=== PATIENT | male | born 1960 | race Caucasian/White ===

== ENCOUNTER 2023-07-30 08:07 | Outpatient (OUT) | payer OTHER, SELFPAY ==
[2023-07-30 08:24] LABS: Basophils Percent Auto 0.6 % (0.2-2.0); Eosinophils Absolute Auto 0.1 10^3/uL (0.0-0.7); Eosinophils Percent Auto 1.5 % (0.9-7.0); Hematocrit 47.1 % (42.0-54.0); Hemoglobin 16.1 g/dL (14.0-18.0); Immature Granulocytes Abs Auto 0.02 10^3/uL (0.00-0.03); Immature Granulocytes Pct Auto 0.3 % (0.0-0.5); Lymphocytes Percent Auto 29.8 % (20.5-60.0); Mean Corpuscular HGB Conc 34.2 g/dL (29.9-35.2); Mean Corpuscular Hemoglobin 30.6 pg (25.9-34.0); Mean Corpuscular Volume 89.5 fL (80.0-94.0); Mean Platelet Volume 9.7 fL (9.5-13.5); Monocytes Absolute Auto 0.7 10^3/uL (0.3-0.8); Monocytes Percent Auto 10.9 % (1.7-12.0); Neutrophils Absolute Auto 3.8 10^3/uL (1.4-6.5); Neutrophils Percent Auto 56.9 % (43.0-75.0); Platelet Count 219 10^3/uL (150-450); Red Blood Count 5.26 10^6/uL (4.70-6.10); Red Cell Distribution Width 12.4 % (11.0-15.0); White Blood Count 6.6 10^3/uL (4.0-11.0)
[2023-07-30 10:02] LABS: Estimated Average Glucose 105 mg/dL; Glycohemoglobin A1C 5.3 % (4.5-6.2)
[2023-07-30 10:38] LABS: Alanine Aminotransferase 27 U/L (16-63); Albumin Globulin Ratio 0.9; Albumin Level 3.6 g/dL (3.4-5.0); Alkaline Phosphatase 65 U/L (46-116); Anion Gap 12.2; Aspartate Amino Transferase 13 U/L (15-37); BUN Creatinine Ratio 14.2; Bilirubin Total 0.6 mg/dL (0.2-1.0); Calcium 8.6 mg/dL (8.5-10.1); Carbon Dioxide 28.2 mmol/L (21.0-32.0); Chloride 103 mmol/L (98-107); Chol HDL Ratio 4.8; Cholesterol 184 mg/dL (<=200); Estimated GFR (African America >60 (>=60); Estimated GFR (Non-African Ame 58 (>=60); Globulin 3.9 g/dL; Glucose 90 mg/dL (74-106); HDL Cholesterol 38 mg/dL (40-60); Potassium 4.4 mmol/L (3.5-5.1); Sodium 139 mmol/L (136-145); Thyroid Stimulating Hormone 2.413 uIU/mL (0.358-3.740); Total Protein 7.5 g/dL (6.4-8.2); Triglycerides 98 mg/dL (<=150); VLDL CHOLESTEROL 19.6 mg/dL
[2023-07-30 10:59] LABS: Free T4 1.13 ng/dL (0.76-1.46)
[2023-07-30 11:03] LABS: Prostate Specific Antigen Scrn 1.72 ng/mL (<=4.00)
== END 2023-07-30 08:08 | disposition home or self-care (01) ==
LOC: LAB 08:07
PROVIDERS: PCP Family Medicine; Visit Provider Family Medicine
DX: R53.83 Other fatigue (principal); E78.5 Hyperlipidemia, unspecified; R73.09 Other abnormal glucose; Z79.899 Other long term (current) drug therapy; Z12.5 Encounter for screening for malignant neoplasm of prostate
CPT/HCPCS: 36415; 80053; 80061; 83036; 84439; 84443; 85025; G0103

== ENCOUNTER 2024-08-09 08:57 | Outpatient (OUT) | payer OTHER, SELFPAY ==
[2024-08-09 09:10] LABS: Basophils Absolute Auto 0.1 10^3/uL (0.0-0.1); Basophils Percent Auto 0.7 % (0.2-2.0); Eosinophils Absolute Auto 0.1 10^3/uL (0.0-0.7); Eosinophils Percent Auto 1.3 % (0.9-7.0); Hematocrit 48.1 % (42.0-54.0); Hemoglobin 16.5 g/dL (14.0-18.0); Immature Granulocytes Abs Auto 0.02 10^3/uL (0.00-0.03); Immature Granulocytes Pct Auto 0.3 % (0.0-0.5); Lymphocytes Absolute Auto 2.3 10^3/uL (1.2-3.8); Mean Corpuscular HGB Conc 34.3 g/dL (29.9-35.2); Mean Corpuscular Hemoglobin 30.3 pg (25.9-34.0); Mean Corpuscular Volume 88.4 fL (80.0-94.0); Mean Platelet Volume 9.8 fL (9.5-13.5); Monocytes Absolute Auto 0.7 10^3/uL (0.3-0.8); Monocytes Percent Auto 8.9 % (1.7-12.0); Neutrophils Absolute Auto 4.3 10^3/uL (1.4-6.5); Neutrophils Percent Auto 57.8 % (43.0-75.0); Platelet Count 221 10^3/uL (150-450); Red Blood Count 5.44 10^6/uL (4.70-6.10); Red Cell Distribution Width 12.5 % (11.0-15.0); White Blood Count 7.4 10^3/uL (4.0-11.0)
[2024-08-09 10:02] LABS: Alanine Aminotransferase 19 U/L (16-63); Albumin Globulin Ratio 0.9; Albumin Level 3.6 g/dL (3.4-5.0); Alkaline Phosphatase 82 U/L (46-116); Anion Gap 14.3; Aspartate Amino Transferase 12 U/L (15-37); BUN Creatinine Ratio 14.4; Bilirubin Total 0.8 mg/dL (0.2-1.0); Calcium 8.9 mg/dL (8.5-10.1); Carbon Dioxide 25.1 mmol/L (21.0-32.0); Chloride 106 mmol/L (98-107); Chol HDL Ratio 4.2; Cholesterol 191 mg/dL (<=200); Estimated GFR (African America >60 (>=60 mL/min/1.73m^2); Estimated GFR (Non-African Ame 55 (>=60 mL/min/1.73m^2); Free T3 3.04 pg/mL (2.18-3.98); Globulin 3.9 g/dL; Glucose 91 mg/dL (74-106); HDL Cholesterol 45 mg/dL (40-60); Potassium 4.4 mmol/L (3.5-5.1); Sodium 141 mmol/L (136-145); Thyroid Stimulating Hormone 2.773 uIU/mL (0.358-3.740); Total Protein 7.5 g/dL (6.4-8.2); Triglycerides 75 mg/dL (<=150)
[2024-08-09 10:05] LABS: Prostate Specific Antigen Scrn 2.62 ng/mL (<=4.00)
[2024-08-09 11:03] LABS: Estimated Average Glucose 103 mg/dL; Glycohemoglobin A1C 5.2 % (4.5-6.2)
== END 2024-08-09 08:58 | disposition home or self-care (01) ==
LOC: LAB 08:57
PROVIDERS: PCP Family Medicine; Visit Provider Family Medicine
DX: I10 Essential (primary) hypertension (principal); E78.5 Hyperlipidemia, unspecified; Z79.899 Other long term (current) drug therapy; Z12.5 Encounter for screening for malignant neoplasm of prostate; R73.09 Other abnormal glucose; N40.0 Benign prostatic hyperplasia without lower urinary tract symptoms
CPT/HCPCS: 36415; 80053; 80061; 83036; 84436; 84443; 84481; 85025; G0103

== ENCOUNTER 2024-08-19 08:55 | Outpatient (OUT) | payer OTHER, SELFPAY ==
--- OUTSIDE RECORDS SUMMARY | 2024-08-19 08:57 | XMS_ITS | CCD ---
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 Name Role Phone JOSUÉ BEASLEY Attending Unavailable NO FAMILY DOCTOR, NO FAMILY DOCTOR Primary Care Unavailable JOSUÉ BEASLEY Attending Unavailable NO FAMILY DOCTOR, NO FAMILY DOCTOR Primary Care Unavailable Saturnino Hart Primary Care Physician BIANCA, DR HUITRON Admitting Unavailable BIANCA, DR HUITRON Attending Unavailable DR SATURNINO HART Primary Care Unavailable BIANCA, DR HUITRON Consulting Unavailable Saturnino Hart MD Primary Care Provider Blair Ba DO Unavailable [phone] BLAIR BA Attending Unavailable BLAIR BA Attending Unavailable SATURNINO HART Referring Unavailable POCJERRI, YAYO Whitley Attending Unavailable POCJERRI, YAYO Whitley Referring Unavailable BLAIR BA Attending Unavailable SATURNINO HART Referring Unavailable BLAIR BA Attending Unavailable DO Blair Ba Attending Provider [phone] Greg MYRICK Admitting Unavailable Greg MYRICK Attending Unavailable Greg MYRICK Referring Unavailable IZZYTENA SWIFT Admitting Unavailable IZZYTENA SWIFT Attending Unavailable Greg MYRICK Attending Unavailable COOKGreg Attending Unavailable Stuart RUIZ Attending Unavailable COOKGreg Attending Unavailable Greg MYRICK Referring Unavailable IZZYTENA SWIFT Attending Unavailable Greg MYRICK Referring Unavailable COOKGreg Admitting Unavailable Greg MYRICK Attending Unavailable Blair Ba Attending Unavailable Blair Ba Admitting Unavailable ROMAN MAGANA Attending Unavailab le IZZY, ROMAN Balbuena Admitting Unavailab le Allergies Allergy Classification Reported Allergen(s) Allergy Type Date of Onset Reaction(s) Facility (20 sources) Acetaminophen / HYDROcodone; Translations: [acetaminophen-hy drocodone] Drug Allergy 6 Insomnia (disorder) [facility] (11 sources) Clindamycin; Translations: [clindamycin] Drug Allergy Weal (disorder) [facility] (20 sources) Penicillins; Translations: [penicillins] Drug allergy [address] [facility] (20 sources) zolpidem; Translations: [zolpidem] Drug Allergy 6 Weal (disorder), Hives, Unknown [facility] (2 sources) Acetaminophen / HYDROcodone; Translations: [Vicodin] Drug Allergy 6 [facility] [place] [facility] (2 sources) zolpidem; Translations: [Ambien] Drug Allergy 6 [facility] (11 sources) HYDROcodone Drug Allergy [address] [facility] (5 sources) Acetaminophen; Translations: [acetaminophen] Drug Allergy 9 Anxiety [facility] (1 source) HYDROcodone Drug Allergy 9 [facility] Repository Medications Current Medications Medication Drug Class(es) Dates Sig (Normalized) Sig (Original) acetaminophen 325 mg / HYDROcodone bitartrate 5 mg oral tablet (3 sources) Opioid Agonist Start: 09-23-2023 take 1 tablet by mouth every hour [place] 325 mg-5 mg oral tablet See Instructions, 1 tab(s), Refill(s) 0, Take 1 hour prior to your procedure, [facility] #[id number], 182, cm, 09/23/23 8:28:00 EST, Height/Length Dosing, 127, kg, 08/10/23 8:48:00 EST, Weight Dosing Start Date: 09/23/23 Status: Ordered acetaminophen 325 mg / traMADol hydrochloride 37.5 mg oral tablet (3 sources) Opioid Agonist Start: 09-23-2023 Ultracet 325 mg-37.5 mg Tab See Instructions, 20 tab(s), Refill(s) 0, take 1-2 every 6 hrs prn for pain - following procedure, [facility] #[id number], 182, cm, 09/23/23 8:28:00 EST, Height/Length Dosing, 127, kg, 08/10/23 8:48:00 EST, Weight Dosing Start Date: 09/23/23 Status: Ordered ALPRAZolam 0.5 mg oral tablet (1 source) Benzodiazepine Start: 10-17-2018 take 1 tablet by mouth twice daily Alprazolam (Xanax) 0.5 mg Tablet Active 0.5 MG PO Twice daily October 17, 2018 12:00am amLODIPine 5 mg oral tablet (20 sources) Dihydropyridine Calcium Channel Issa Start: 10-07-2011 take 1 tablet by mouth once daily amLODIPine 5 mg Tab 5 mg = 1 tab(s), Oral, Daily, High blood pressure Start Date: 10/07/11 Status: Ordered amLODIPine (Norv asc) 10 MG tablet Take by mouth Daily. Active ARIPiprazole 5 mg oral tablet (10 sources) Atypical Antipsychotic Start: 05-22-2023 ARIPiprazole (Abilify) 5 MG tablet 05/22/2023 Active brexpiprazole 1 mg oral tablet (2 sources) Atypical Antipsychotic Start: 03-31-2019 take 1 tablet by mouth once daily Rexulti 1 mg oral tablet mg tab(s), Oral, Daily, Refills(s) 0 Start Date: 03/31/19 Status: Ordered celecoxib 100 mg oral capsule (4 sources) Nonsteroidal Anti-inflammatory Drug Start: 10-17-2018 End: 10-17-2018 take 1 capsule by mouth once daily at mealtime Celecoxib (Celebrex) 100 mg Capsule Active 100 MG PO Daily 0 October 17, 2018 12:27pm take with food Start: 02-12-2012 take 1 capsule by [facility] once daily CeleBREX 200 mg Cap 200 mg = 1 cap(s), Oral, Daily, Refills(s) 0, Inflammation Start Date: 02/12/12 Status: Ordered ciprofloxacin 500 mg oral tablet (2 sources) Quinolone Antimicrobial Start: 09-23-2023 End: 09-30-2023 Cipro 500 mg Tab 500 mg = 1 tab(s), Oral, q12hr, Start 3 days prior to procedure - twice a day for 7 days, X 7 day(s), # 14 tab(s), Refills(s) 0, [id number], 182, cm, 09/23/23 8:28:00 EST, Height/Length Dosing, 127, kg, 08/10/23 8:48:00 EST, Weight Dosing Start Date: 09/23/23 Stop Date: 09/30/23 Status: Ordered Start: 08-10-2023 Cipro 500 mg T ab 500 mg = 1 tab(s), Oral, As Directed, Pt to take 1 tab the day before procedure and the 2nd tab the day of procedure once completed., # 2 tab(s), Refills(s) 0, [facility]acy: [facility] #[id number], 182, cm, 08/10/23 8:48:00 EST, Height/Length Dosing, 127, kg, 08/10/23 8:48:00 EST, Weight Dosing Start Date: 08/10/23 Status: Ordered citalopram 20 mg oral tablet (20 sources) Serotonin Reuptake Inhibitor Start: 05-28-2020 citalopram (CeleXA) 20 MG tablet 06/19/2024 Active Start: 10-17-2018 End: 08-16-2024 take 1 tablet by mouth once daily Citalopram (Celexa) 40 mg Tablet Active 40 MG PO Daily October 17, 2018 12:00am diazePAM 10 mg oral tablet (3 sources) Benzodiazepine Start: 09-23-2023 Valium 10 mg Tab See Instructions, Take 1 hr prior to procedure, # 1 tab(s), Refills(s) 0, Pharmacy: [facility] #[id number], 182, cm, 09/23/23 8:28:00 EST, Height/Length Dosing, 127, kg, 08/10/23 8:48:00 EST, Weight Dosing Start Date: 09/23/23 Status: Ordered fluticasone propionate 0.05 mg/actuat metered dose nasal spray (2 sources) Corticosteroid Start: 03-31-2019 Childrens Flonase 50 mcg/inh nasal spray 50 microgram, Nasal, Daily, Refill(s) 0 Start Date: 03/31/19 Status: Ordered hyoscyamine sulfate 0.125 mg oral tablet (2 sources) Start: 03-31-2019 take 1 mg by mouth four times daily hyoscyamine 0.125 mg oral Tab mg tab(s), Oral, QID, Refills(s) 0 Start Date: 03/31/19 Status: Ordered levoFLOXacin 500 mg oral tablet (6 sources) Quinolone Antimicrobial Start: 07-20-2024 End: 08-03-2024 take 1 tablet by mouth once daily levoFLOXacin (Levaquin) 500 MG tablet Indications: Otorrhea, unspecified laterality Take 1 tablet (500 mg) by mouth Daily for 14 days 14 tablet 07/20/2024 08/03/2024 Active lisinopril 20 mg oral tablet (20 sources) Angiotensin Converting Enzyme Inhibitor Start: 04-26-2012 take 1 tablet by mouth once daily lisinopril 20 mg Tab 20 mg = 1 tab(s), Oral, Daily, High blood pressure Start Date: 04/26/12 Status: Ordered lisinopril 10 MG tablet Take by mouth Daily. Active meloxicam 15 mg oral tablet (10 sources) Nonsteroidal Anti-inflammatory Drug Start: 07-02-2024 take 1 tablet by mouth once daily at mealtime meloxicam (Mobic) 15 MG tablet TAKE 1 TABLET BY MOUTH EVERY DAY WITH FOOD 07/02/2024 Active ofloxacin 3 mg/ml otic solution (5 sources) Quinolone Antimicrobial Start: 07-11-2024 End: 07-30-2024 ofloxacin (Floxin) 0.3 % otic solution Indications: Otorrhea, unspecified laterality Administer 5 drops into affected ear(s) in the morning and 5 drops before bedtime. Do all this for 10 days. 5 mL 1 07/20/2024 07/30/2024 Active omeprazole 40 mg delayed release oral capsule (20 sources) Proton Pump Inhibitor Start: 10-17-2018 take 40 mg by mouth twice daily Omeprazole Active 40 MG PO Twice daily 0 October 17, 2018 12:27pm Start: 10-17-2018 End: 10-17-2018 take 80 mg by mouth once daily Omeprazole Discontinued 80 MG PO Daily October 17, 2018 12:00am October 17, 2018 12:28pm Start: 10-07-2011 omeprazole 40 mg Cap-EC Oral, Daily, Control of stomach acid Start Date: 10/07/11 Status: Ordered take 1 capsule by mo uth before mealtime omeprazole (PriLOSEC) [address] capsule Take 20 mg by mouth in the morning. Take before meals. Do not crush or chew. . Active oxybutynin chloride 5 mg oral tablet (3 sources) Cholinergic Muscarinic Antagonist Start: 09-23-2023 take 1 tablet by mouth twice daily oxybutynin 5 mg Tab See Instructions, 1 tab(s) Oral bid after procedure, # 10 tab(s), Refills(s) 0, Pharmacy: [facility] #[id number], 182, cm, 09/23/23 8:28:00 EST, Height/Length Dosing, 127, kg, 08/10/23 8:48:00 EST, Weight Dosing Start Date: 09/23/23 Status: Ordered silodosin 4 mg oral capsule (8 sources) alpha-Adrenergic Issa Start: 11-29-2023 take 1 capsule by mouth once daily Rapaflo 4 mg oral capsule 4 mg = 1 cap(s), Oral, Daily, # 90 cap(s), Refills(s) 3, Pharmacy: [facility], 182, cm, 11/29/23 9:14:00 EST, Height/Length Dosing, 127, kg, 11/29/23 9:14:00 EST, Weight Dosing Start Date: 11/29/23 Status: Ordered Start: 09-23-2023 take 1 capsule by [facility] once daily Rapaflo 4 mg oral capsule 4 mg = 1 cap(s), Oral, Daily, # 90 cap(s), Refills(s) 3, Pharmacy: [facility] #[id number], 182, cm, 09/23/23 8:28:00 EST, Height/Length Dosing, 127, kg, 08/10/23 8:48:00 EST, Weight Dosing Start Date: 09/23/23 Status: Ordered Start: 08-06-2022 take 1 capsule by [facility] once daily Rapaflo 4 mg oral capsule 4 mg = 1 cap(s), Oral, Daily, # 90 cap(s), Refills(s) 3, Pharmacy: [facility], 182, cm, 08/06/22 11:04:00 EST, Height/Length Dosing, 121, kg, 08/06/22 11:04:00 EST, Weight Dosing Start Date: 08/06/22 Status: Ordered traMADol hydrochloride 50 mg oral tablet (20 sources) Opioid Agonist Start: 10-17-2018 take 50 mg by mouth four times daily Tramadol Active 50 MG PO Four times daily October 17, 2018 12:00am Start: 10-21-2012 take 50 mg by mouth twice daily as needed for pain tramadol 50 mg, Oral, BID, PRN as needed for pain, Refills(s) 0 Start Date: 10/21/12 Status: Ordered Completed/Discontinued Medications Medication Drug Class(es) Dates Sig (Normalized) Sig (Original) finasteride 5 mg oral tablet (2 sources) 5-alpha Reductase Inhibitor End: 07-19-2024 finasteride (Proscar) 5 MG tablet 1 (one) time each day at the same time. 07/19/2024 Discontinued (Therapy completed) Problems Active Problems Problem Classification Problem Date Documented Da te Episodic/Chronic Diabetes mellitus without complication (1 source) Other abnormal glucose; Translations: [OTHER ABNORMAL GLUCOSE] Onset: 08-08-2022 Episodic Disorders of lipid metabolism (1 source) Hyperlipidemia, unspecified; Translations: [HYPERLIPIDEMIA UNSPECIFIED] Onset: 08-08-2022 Chronic Esophageal disorders (1 source) Esophageal disorders Onset: 10-31-2018 Malaise and fatigue (1 source) Other fatigue; Translations: [OTHER FATIGUE] Onset: 08-08-2022 Episodic Other diseases of kidney and ureters (2 sources) Urinary tract obstruction; Translations: [Other obstructive and reflux uropathy] Onset: 09-23-2023 Episodic Other ear and sense organ disorders (2 sources) Otorrhea; Translations: [Otorrhea, unspecified ear] 07-20-2024 Episodic Other ear and sense organ disorders (4 sources) Otorrhea of left ear; Translations: [Otorrhea, left ear] 07-31-2024 Episodic Other ear and sense organ disorders (1 source) Otorrhea, left ear; Translations: [Otorrhea, left ear] Onset: 07-31-2024 Episodic Other injuries and conditions due to external causes (2 sources) Foreign body in left ear; Translations: [Foreign body in left ear, initial encounter] 07-20-2024 Episodic Other male genital disorders (4 sources) Male erectile dysfunction, unspecified; Translations: [Erectile dysfunction] Onset: 08-06-2022 Chronic Other male genital disorders (10 sources) Impotence 05-28-2020 Chronic Other nervous system disorders (10 sources) Complex regional pain syndrome, type I 10-07-2011 Chronic Other upper respiratory disease (10 sources) Chronic rhinitis; Translations: [Chronic rhinitis] Onset: 05-12-2023 Resolved: 05-12-2023 05-12-2023 Chronic Otitis media and related conditions (10 sources) Chronic serous otitis media; Translations: [Chronic serous otitis media, unspecified ear] Onset: 05-12-2023 Resolved: 05-12-2023 05-12-2023 Chronic Otitis media and related conditions (6 sources) Acute suppurative otitis media of left ear; Translations: [Acute suppurative otitis media without spontaneous rupture of ear drum, left ear] 07-20-2024 Episodic Unclassified (10 sources) Asymptomatic microscopic hematuria 08-06-2022 Past or Other Problems Problem Classification Problem Date Documented Date Episodic/Chronic Anxiety disorders (20 sources) Posttraumatic stress disorder; Translations: [Post-traumatic stress disorder, unspecified] Onset: 05-12-2023 Resolved: 08-16-2024 10-07-2011 Chronic Esophageal disorders (20 sources) Gastroesophageal reflux disease; Translations: [Gastro-esophageal reflux disease without esophagitis] Onset: 05-12-2023 Resolved: 05-12-2023 12-08-2013 Chronic Essential hypertension (20 sources) Essential (primary) hypertension; Translations: [Hypertensive disorder] Onset: 01-10-2013 Resolved: 05-12-2023 10-07-2011 Chronic Genitourinary symptoms and ill-defined conditions (20 sources) Post-micturition incontinence ; Translations: [Post-void dribbling] Onset: 05-12-2023 Resolved: 05-12-2023 03-31-2019 Chronic Genitourinary symptoms and ill-defined conditions (20 sources) Microscopic hematuria; Translations: [Asymptomatic microscopic hematuria] Onset: 08-06-2022 Resolved: 05-12-2023 Episodic Hyperplasia of prostate (20 sources) Benign prostatic hypertrophy with outflow obstruction; Translations: [Benign prostatic hyperplasia with lower urinary tract symptoms] Onset: 01-10-2013 Resolved: 05-12-2023 Chronic Inflammatory conditions of male genital organs (20 sources) Epididymitis; Translations: [Epididymitis] Onset: 05-12-2023 Resolved: 05-12-2023 03-31-2019 Episodic Mood disorders (4 sources) Depressive disorder; Translations: [Depression] Onset: 08-16-2024 Resolved: 08-16-2024 10-17-2018 Chronic Nonspecific chest pain (7 sources) Chest pain, unspecified; Translations: [Chest pain] Onset: 10-31-2018 Resolved: 08-16-2024 10-17-2018 Episodic Other congenital anomalies (10 sources) Congenital malposition of metatarsal bone; Translations: [Other congenital valgus deformities of feet] Onset: 05-12-2023 Resolved: 05-12-2023 05-12-2023 Chronic Other connective tissue disease (10 sources) Artificial knee joint present; Translations: [Presence of artificial knee joint, bilateral] Onset: 05-12-2023 Resolved: 05-12-2023 05-12-2023 Chronic Other ear and sense organ disorders (14 sources) Left conductive hearing loss; Translations: [Conductive hearing loss, unilateral, left ear, with unrestricted hearing on the contralateral side] Onset: 05-12-2023 Resolved: 05-12-2023 05-12-2023 Chronic Other ear and sense organ disorders (10 sources) Hearing loss of left ear; Translations: [Unspecified hearing loss, left ear] Onset: 05-12-2023 Resolved: 05-12-2023 05-12-2023 Chronic Other ear and sense organ disorders (10 sources) Sensorineural hearing loss, bilateral; Translations: [Sensorineural hearing loss, bilateral] Onset: 05-12-2023 Resolved: 05-12-2023 05-12-2023 Chronic Other male genital disorders (20 sources) Cyst of epididymis; Translations: [Cyst of epididymis] Onset: 08-06-2022 Resolved: 05-12-2023 Episodic Other male genital disorders (20 sources) Testicular mass; Translations: [Other specified disorders of the male genital organs] Onset: 05-12-2023 Resolved: 05-12-2023 03-31-2019 Episodic Other screening for suspected conditions (not mental disorders or infectious disease) (16 sources) Encounter for screening for malignant neoplasm of prostate; Translations: [Screening for malignant neoplasm done] Onset: 08-10-2023 Resolved: 11-10-2023 Episodic Residual codes; unclassified (20 sources) Insomnia; Translations: [Insomnia, unspecified] Onset: 05-12-2023 Resolved: 05-12-2023 12-08-2013 Episodic Substance-related disorders (20 sources) Smoker; Translations: [Nicotine dependence, unspecified, uncomplicated] Onset: 05-12-2023 Resolved: 05-12-2023 03-31-2019 Chronic Unclassified (8 sources) Patient encounter status 08-10-2023 Results Test Name Value Interpretation Reference Range Facility URINALYSISOrdered By: SYSTEM SYSTEM on 08-15-2024 Bilirubin Ql (U) Negative Normal Negativemg/ d L [facility] UA Auto SS Clarity (U) Clear (08/15/24 12:08 PM) Normal Clear [facility] UA Auto SS Color (U) Yellow 1 (08/15/24 12:08 PM) Normal Yellow [facility] UA Auto SS Comment on above: Interpretive Data: M icroscopic readings are only performed on those samples that meet specific criteria set forth by [facility]. Glucose Ql (U) Negative Normal Negativemg/d L [facility] UA Auto SS Hemoglobin Auto test strip (U) [Mass/Vol] 1+ mg/dL Invalid Interpretation Code Negativemg/d L [facility] UA Auto SS Ketones Auto test strip Ql (U) Negative Normal Negativemg/d L [facility] UA Auto SS Leukocyte esterase Auto test strip Ql (U) Negative Normal NegativeLeu/ uL [facility] UA Auto SS Mucus Auto Ql (U) Negative Normal Negativegr ad ed/LPF [facility] UA Auto SS Nitrite Auto test strip Ql (U) Negative Normal Negativemg/d L [facility] UA Auto SS pH (U) 5.5 *NA* (08/15/24 12:08 PM) Invalid Interpretation Code 5.0 - 9.0 [facility] UA Auto SS Protein Ql (U) Negative Normal Negativemg/d L [facility] UA Auto SS RBC Ql (U) 0-3 graded/HPF Normal 0-3graded/HP F [facility] UA Auto SS Specific gravity (U) [Rel density] 1.024 *NA* (08/15/24 12:08 PM) Invalid Interpretation Code 1.005 - 1.030 [facility] UA Auto SS Urobilinogen (U) [Mass/Vol] Negative Normal Negativemg/d L [facility] UA Auto SS WBC Auto (Urine sed) [#/Area] 0-5 graded/HPF Normal 0-5graded/HP F [facility] UA Auto SS URINALYSISOrdered By: Kusum Yeung on 08-15-2024 UA Spec Desc Random Urine (08/15/24 12:08 PM) Normal [facility] UA Auto SS Urinalysis with Microon 07-28 Bilirubin Ql (U) Negative Normal Negative [facility] Comment on above: Performed By: #### 4 [id number] #### [facility] [address] [place] [address] Clarity (U) Clear Normal Clear [facility] Comment on above: Performed By: #### 4 [id number] #### [facility] [address] [place] [address] Color (U) Yellow Normal Yellow [facility] Comment on above: Result Comment: Micr oscopic readings are only performed on those samples that meet specific criteria set forth by [facility]. Performed By: #### 4 [id number] #### [facility] [address] [place] [address] Glucose Ql (U) Negative Normal Negative [facility] Comment on above: Performed By: #### 4 [id number] #### [facility] [address] [place] [address] Hemoglobin Auto test strip (U) [Mass/Vol] 1+ mg/dL Abnormal Negative [facility] Comment on above: Performed By: #### 4 [id number] #### [facility] [address] [place] [address] Ketones Auto test strip Ql (U) Negative Normal Negative [facility] Comment on above: Performed By: #### 4 [id number] #### [facility] [address] [place] [address] Leukocyte esterase Auto test strip Ql (U) Negative Normal Negative [facility] Comment on above: Performed By: #### 4 [id number] #### [facility] [address] [place] [address] Mucus Auto Ql (U) Negative Normal Negative [facility] Comment on above: Performed By: #### 4 [id number] #### [facility] [address] [place] [address] Nitrite Auto test strip Ql (U) Negative Normal Negative [facility] Comment on above: Performed By: #### 4 [id number] #### [facility] [address] [place] [address] pH (U) 5.5 [pH] Invalid Interpretation Code 5.0-9.0 [facility] Comment on above: Performed By: #### 4 [id number] #### [facility] [address] [place] [address] Protein Ql (U) Negative Normal Negative [facility] Comment on above: Performed By: #### 4 [id number] #### [facility] [address] [place] [address] RBC Ql (U) 0-3 Normal 0-3 [facility] Comment on above: Performed By: #### 4 [id number] #### [facility] [address] [place] [address] Specific gravity (U) [Rel density] 1.024 Invalid Interpretation Code 1.005-1.030 [facility] Comment on above: Performed By: #### 4 [id number] #### [facility] [address] [place] [address] Urobilinogen (U) [Mass/Vol] Negative Normal Negative [facility] Comment on above: Performed By: #### 4 [id number] #### [facility] [address] [place] [address] WBC Auto (Urine sed) [#/Area] 0-5 Normal 0-5 [facility] Comment on above: Performed By: #### 4 [id number] #### [facility] [address] [place] [address] Type of Urine collection method Random Urine Normal [facility] Comment on above: Performed By: #### 4 [id number] #### [facility] [address] [place] [id number] Urology Office/Clinic Noteon 08-15-2024 Urology Office/Clinic Note Urology Office/Clinic Note Chief Complaint 5mo f/u PSA HPI Staff 63 year old male here fore 5 month f/u with PSA Previous DX: BPH w/LUTS, screening PSA and asymptomatic micro hematuria S/p Urolift 6 implants 11/01/23 PSA: 08/01/21 - 1.89 08/03/22 - 2.10 & 24.8% 07/30/23 - 1.72 08/09/24 - 2.62 A1c 5.2 done 08/09/24 Dysuria: denies Incomplete bladder emptying: denies Hematuria: denies Frequency: every 3-4hrs Urgency: only once in awhile if he hold urine too long Nocturia: 1x Stream: good stream Leaking: denies Post void dripping: denies Wearing pads/ Depends: denies Urge incontinence: denies Stress incontinence: denies Incontinence without Sensory Awareness: denies Abdominal pain: denies Flank pain: denies Sexual complaints: denies Review of Systems PHQ Score Initial Depression Screen Score: 0 SCORE Physical Exam Vitals & Measurements T: 37 ???C(Oral) HR: 73(Peripheral) RR: 18 BP: 160/100 HT: 72 in HT: 182 cm WT: 128 kg WT: 282.191 lb BMI: 38.64 TOSHIA: benign. no asymmetry, induration, nodules. Assessment/Plan 1. Abnormal PSA, (R97.20: Elevated prostate specific antigen [PSA])Abnormal PSA PSA: 08/01/21 - 1.89 08/03/22 - 2.10 & 24.8% 07/30/23 - 1.72 08/09/24 - 2.62 Explained that although PSA is still <4, for his age I'd like it closer to 2.5 and I don't particularly like the jump. Was holding steady 1.7-2.1, now 2.6 Instead of waiting a full year, we will repeat in 6 mos. If that remains stable or drops back down, then we can go back to annual screening. If increases, will need ov to discuss MRI/[facility]. Call pt w results. Recall placed. Ordered: PSA Total 2. BPH without urinary obstruction (N40.0: Benign prostatic hyperplasia without lower urinary tract symptoms) Sp Urolift 6 implants 11/01/23 w [facility]. Pt reports it was the most painful and awful experience and that he felt every clip. Wants anesthesia w any future procedures. IPSS 4 QOL 0. Weaned off Rapaflo after last ov. Doing well. No complaints. 3. Asymptomatic microscopic hematuria (R31.21: Asymptomatic microscopic hematuria) today's in-office UA shows moderate hgb. we will send for microscopic eval and culture. if shows significant microhematuria and completely negative cx, then we will need to proceed with hematuria eval. hematuria eval components were not discussed in depth during today's visit. if + will need phone call or o.v. to discuss at length. if micro negative then no additional action needed at this time - pt aware that no news is good news in this regard. If +will need cyto and upper tract imaging. Just had cysto w Urolift so would ask MD if wants to repeat. Current smoker. 4. Impotence (N52.9: Male erectile dysfunction, unspecified) EMRE 15. Failed Viagra previously. Pt has issues achieving erection yes, firmness yes, maintaining erection yes, reaching climax yes Not interested in medication. I did spend time explaining how erectile rings work. Pt will consider trying this. Orders: Body Mass Index (BMI) documented 3008F Current tobacco non-user 1036F Depression Screening Negative 3352F Influenza immunization status assessed 1030F Medication list documented in medical record 1159F Most recent diastolic blood pressure >=90 mm Hg 3080F Most recent systolic blood pressure >= 140 mm Hg 3077F Review of all meds by a prescribing practitioner or clinical pharmacist documented in EHR 1160F Urnls Dip Stick Auto w/o Microscopy POC 41227 f/u pending PSA results in 6 mos Follow-up With When Contact Information IZZY OWENS, TENA Balbuena, URL [address] [place] [address] Business (1) Additional Instructions: pending results of imaging/testing, will call with next steps Patient Education Erectile Dysfunction Problem List/Past Medical History Ongoing Abnormal PSA Acid reflux Asymptomatic microscopic hematuria BPH without urinary obstruction Epididymal cyst Epididymitis HTN - Hypertension Impotence Insomnia PTSD - Post-traumatic stress disorder RSD - Reflex sympathetic dystrophy Smoker Historical BPH with urinary obstruction Microscopic hematuria Nocturia Post-void dribbling Screening PSA (prostate specific antigen) Testicular lump Weak urine stream Procedure/Surgical History Cystoscopy (04/06/2019), Arthroscopy of knee, Arthroscopy of shoulder, Bilateral cataracts, Capsulotomy of eye lens, Cholecystectomy, Replacement of total knee joint, Tympanic ventilation tube in external ear canal. Medications amLODIPine 5 mg Tab, 5 mg= 1 tab(s), Oral, Daily CeleXA 20 mg Tab, Oral, Daily lisinopril 20 mg Tab, 20 mg= 1 tab(s), Oral, Daily omeprazole 40 mg Cap-EC, Oral, Daily tramadol, 50 mg, Oral, BID, PRN Allergies Ambien (Hives) Vicodin (Insomnia) acetaminophen-hydrocod one (Unknown) penicillins (Hives) zolpidem (Wheal, Unknown) Social History Alcohol Current. Beer. 1-2 times per month., 08/10/2024 Substance (more content not included)... [facility] Comment on above: Result Comment: Elec tronically Signed By: IZZY OWENS, TENA Mcnamara.br\Date and Time Signed: 08/15/24 11:06 EST Ear Cultureon 07-31-2024 Ear Culture Result Tab Codes No Growth 2 Days PERFORMED BY: [place] [address] PATHOLOGIST PSYCHIATRIC THERAPIST RAVEN FERNANDES M.D. Normal [facility] Comment on above: Performed By: #### C UEAR #### [address] No Panel InformationOrdered By: Blair Ba on 07-31-2024 Mycology Susceptibility N/A [facility] Reminderson 04-12-2024 Reminders Reminders From: Kylie Mazariegos To: EU - Administrative; Sent: 03/07/2024 09:51:12 EDT Show up: 04/06/2024 09:50:00 EDT Subject: 5 mo f/u w/ psa Due Date/Time: 08/07/2024 08:51:00 EST Reminder/Recall Patient seen on 03/07/2024. Patient needs a follow up with [facility] in [place] with a PSA in 5 months. This being said patient needs an appointment in early july. Patient needs seen before August 11 for insurance purposes. Patient prefers [place] but is willing to go to [place] if need be [facility] to call and schedule Patient called back, scheduled [facility] Screenson 03-08-2024 Screens [id number]#1. [id number] [facility] Ambulatory Visit Summaryon 0 03-07-2024 Ambulatory Visit Summary KUN HENLEY SR :1960 Visit Date:03/07/2024 Ambulatory Visit Instructions Your Diagnosis BPH with urinary obstruction Screening PSA (prostate specific antigen) Asymptomatic microscopic hematuria Your Care Team Attending Physician - Greg MYRICK MD Primary Care Physician - Saturnino Hart MD This Is Your Medications List Contact prescribing physician if questions or concerns amlodipine (amLODIPine 5 mg Tab) citalopram (CeleXA 20 mg Tab) lisinopril (lisinopril 20 mg Tab) omeprazole (omeprazole 40 mg Cap-EC) silodosin (Rapaflo 4 mg oral capsule) tramadol Procedures Performed Cystoscopy (04/06/2019), Arthroscopy of knee, Arthroscopy of shoulder, Bilateral cataracts, Capsulotomy of eye lens, Cholecystectomy, Replacement of total knee joint, Tympanic ventilation tube in external ear canal. Discharge Vitals Temperature (Temporal Artery) 36.6 ?C Heart Rate (Peripheral) 67 Blood Pressure 118/80 Height 182 cm Height 72 in Weight 56.6 kg Weight 124.52 lb BMI 17.09 What to do next You Need to Schedule the Following Appointments Follow Up with TENA MAGANA PA-C, URL When: Where: [address] [place] [address] Medications What How Much When Instructions Unchanged amlodipine (amLODIPine 5 mg Tab) 1 Tablets By Mouth Every day Contact prescribing physician if questions or concerns Unchanged citalopram (CeleXA 20 mg Tab) By Mouth Every day Contact prescribing physician if questions or concerns Unchanged lisinopril (lisinopril 20 mg Tab) 1 Tablets By Mouth Every day Contact prescribing physician if questions or concerns Unchanged omeprazole (omeprazole 40 mg Cap-EC) By Mouth Every day Contact prescribing physician if questions or concerns Unchanged silodosin (Rapaflo 4 mg oral capsule) 1 Capsules By Mouth Every day Contact prescribing physician if questions or concerns Unchanged tramadol 50 Milligram By Mouth 2 times a day as needed for as needed for pain Contact prescribing physician if questions or concerns Allergies Ambien (Hives) Vicodin (Insomnia) acetaminophen-hydrocod one (Unknown) penicillins (Hives) zolpidem (Unknown) Problems Ongoing - Any problem that you are currently receiving treatment for. Acid reflux Asymptomatic microscopic hematuria BPH with urinary obstruction Epididymal cyst Epididymitis HTN - Hypertension Impotence Insomnia Microscopic hematuria Nocturia Post-void dribbling PTSD - Post-traumatic stress disorder RSD - Reflex sympathetic dystrophy Screening PSA (prostate specific antigen) Smoker Testicular lump Weak urine stream Patient Survey You may receive a survey via text or e-mail asking about your office visit. Please share your experience with us by completing your survey. We appreciate your feedback and thank you for choosing us for your care. Education Materials Benign Prostatic Hyperplasia Benign prostatic hyperplasia (BPH) is an enlarged prostate gland that is caused by the normal aging process. The prostate may get bigger as a man gets older. The condition is not caused by cancer. The prostate is a walnut-sized gland that is involved in the production of semen. It is located in front of the rectum and below the bladder. The bladder stores urine. The urethra carries stored urine out of the body. An enlarged prostate can press on the urethra. This can make it harder to pass urine. The buildup of urine in the bladder can cause infection. Back pressure and infection may progress to bladder damage and kidney (renal) failure. What are the causes? This condition is part of the normal aging process. However, not all men develop problems from this condition. If the prostate enlarges away from the urethra, urine flow will not be blocked. If it enlarges toward the urethra and compresses it, there will be problems passing urine. What increases the risk? This condition is more likely to develop in men older than 50 years. What are the signs or symptoms? Symptoms of this condition include: ? Getting up often during the night to urinate. ? Needing to urinate frequently during the day. ? Difficulty starting urine flow. ? Decrease in size and strength of your urine stream. ? Leaking (dribbling) after urinating. ? Inability to pass urine. This needs immediate treatment. ? Inability to completely empty your bladder. ? Pain when you pass urine. This is more common if there is also an infection. ? Urinary tract infection (UTI). How is this diagnosed? This condition is diagnosed based on your medical history, a physical exam, and your symptoms. Tests will also be done, such as: ? A post-void bladder scan. This measures any amount of urine that may remain in your bladder after you finish urinating. ? A digital rectal exam. In a rectal exam, your health care provider checks your prostate by putting a lubricated, (more content not included)... [facility] Patient Educationon 03-07-20 Patient Education Urology Benign Prostatic Hyperplasia Benign prostatic hyperplasia (BPH) is an enlarged prostate gland that is caused by the normal aging process. The prostate may get bigger as a man gets older. The condition is not caused by cancer. The prostate is a walnut-sized gland that is involved in the production of semen. It is located in front of the rectum and below the bladder. The bladder stores urine. The urethra carries stored urine out of the body. An enlarged prostate can press on the urethra. This can make it harder to pass urine. The buildup of urine in the bladder can cause infection. Back pressure and infection may progress to bladder damage and kidney (renal) failure. What are the causes? This condition is part of the normal aging process. However, not all men develop problems from this condition. If the prostate enlarges away from the urethra, urine flow will not be blocked. If it enlarges toward the urethra and compresses it, there will be problems passing urine. What increases the risk? This condition is more likely to develop in men older than 50 years. What are the signs or symptoms? Symptoms of this condition include: ? Getting up often during the night to urinate. ? Needing to urinate frequently during the day. ? Difficulty starting urine flow. ? Decrease in size and strength of your urine stream. ? Leaking (dribbling) after urinating. ? Inability to pass urine. This needs immediate treatment. ? Inability to completely empty your bladder. ? Pain when you pass urine. This is more common if there is also an infection. ? Urinary tract infection (UTI). How is this diagnosed? This condition is diagnosed based on your medical history, a physical exam, and your symptoms. Tests will also be done, such as: ? A post-void bladder scan. This measures any amount of urine that may remain in your bladder after you finish urinating. ? A digital rectal exam. In a rectal exam, your health care provider checks your prostate by putting a lubricated, gloved finger into your rectum to feel the back of your prostate gland. This exam detects the size of your gland and any abnormal lumps or growths. ? An exam of your urine (urinalysis). ? A prostate specific antigen (PSA) screening. This is a blood test used to screen for prostate cancer. ? An ultrasound. This test uses sound waves to electronically produce a picture of your prostate gland. Your health care provider may refer you to a specialist in kidney and prostate diseases (urologist). How is this treated? Once symptoms begin, your health care provider will monitor your condition (active surveillance or watchful waiting). Treatment for this condition will depend on the severity of your condition. Treatment may include: ? Observation and yearly exams. This may be the only treatment needed if your condition and symptoms are mild. ? Medicines to relieve your symptoms, including: ? Medicines to shrink the prostate. ? Medicines to relax the muscle of the prostate. ? Surgery in severe cases. Surgery may include: ? Prostatectomy. In this procedure, the prostate tissue is removed completely through an open incision or with a laparoscope or robotics. ? Transurethral resection of the prostate (TURP). In this procedure, a tool is inserted through the opening at the tip of the penis (urethra). It is used to cut away tissue of the inner core of the prostate. The pieces are removed through the same opening of the penis. This removes the blockage. ? Transurethral incision (TUIP). In this procedure, small cuts are made in the prostate. This lessens the prostate's pressure on the urethra. ? Transurethral microwave thermotherapy (TUMT). This procedure uses microwaves to create heat. The heat destroys and removes a small amount of prostate tissue. ? Transurethral needle ablation (TUNA). This procedure uses radio frequencies to destroy and remove a small amount of prostate tissue. ? Interstitial laser coagulation (ILC). This procedure uses a laser to destroy and remove a small amount of prostate tissue. ? Transurethral electrovaporization (TUVP). This procedure uses electrodes to destroy and remove a small amount of prostate tissue. ? Prostatic urethral lift. This procedure inserts an implant to push the lobes of the prostate away from the urethra. Follow these instructions at home: ? Take [id number] and prescription medicines only as told by your health care provider. ? Monitor your symptoms for any changes. Contact your health care provider with any changes. ? Avoid drinking large amounts of liquid before going to bed or out in public. ? Avoid or reduce how much caffeine or alcohol you drink. ? Give yourself time when you urinate. ? Keep all follow-up visits. This is important. Contact a health care provider if: ? You have unexplained back pain. ? Your symptoms do not get better with treatment. ? You develop side effects from the medicine (more content not included)... [facility] Urology Office/Clinic Noteon 03-07-2024 Urology Office/Clinic Note Chief Complaint 1183 month F/U with PVR HPI Staff 3 month follow up w/PVR Previous DX; BPH, Screening PSA, microscopic hematuria, impotence, epididymal cyst, epididymitis, testicular lump *Rapaflo 4mg QD. [place] [facility] [place] Previous PVR 39mL 11/29/23 PSA: 08/01/21 - 1.89 08/03/22 - 2.1 & 24.8% 07/30/23 - 1.72 IPSS 7 PVR 43 Dysuria: denies Incomplete bladder emptying: denies Hematuria: denies visible blood ( Small on UA today) Frequency: every 2-3 hours Urgency: denies Nocturia: once nightly Stream: denies hesitation, weaker stream Leaking: denies Post void dripping: just in the morning Wearing pads/ Depends: denies Urge incontinence: denies Stress incontinence: denies Incontinence without Sensory Awareness: denies Abdominal pain: denies Flank pain: denies Sexual complaints: denies History of Present Illness Tests reviewed: reviewed UA I have reviewed the previous health record information and history for this patient from Dr. Myrick. I have reviewed and verified the staff HPI to be accurate for this encounter. There have been no associated fever, chills, flank pain, or blood in the urine. Denies any urinary infections since last encounter. Review of Systems PHQ Score Initial Depression Screen Score: 0 SCORE ROS - Provider Constitutional: denies weight loss, denies hot flashes. Eyes: denies eye problems. Gastrointestinal: denies nausea, denies vomiting. Cardiovascular: denies chest pain or angina. Integumentary: no dryness Musculoskeletal: denies musculoskeletal symptoms. ENMT: denies otolaryngeal symptoms. Respiratory: no shortness of breath. Heme/Lymph: denies easy bleeding tendency, denies easy bruising tendency. Psychiatric: no confusion, no anxiety. Genitourinary: See HPI. Physical Exam Vitals & Measurements T: 36.6 ?C(Temporal Artery) HR: 67(Peripheral) BP: 118/80 HT: 72 in HT: 182 cm WT: 56.6 kg WT: 124.52 lb BMI: 17.09 General Appearance: alert, no distress, well nourished, well developed male. Genitourinary: normal scrotum, normal testes, normal urethra, normal epididymis, normal vas deferens/spermatic cord. Flank Pain: none. Bladder: nonpalpable. Assessment/Plan 1. BPH with urinary obstruction (N40.1: Benign prostatic hyperplasia with lower urinary tract symptoms) PVR (cc): 11/29/23 - 39 03/07/24 - 43 S/p Urolift 6 implants 11/01/23. UA neg for infection. IPSS 7 (17). Taking Rapaflo 4 mg qd. Experiencing SE of retrograde ejaculation. -Wean off Rapaflo. Start qod for a week then cont to titrate down. If he has bothersome sxs wo med, he can cont taking it. -Pt to call with sx update after Rapaflo trial. 2. Screening PSA (prostate specific antigen) (Z12.5: Encounter for screening for malignant neoplasm of prostate) PSA: 08/01/21 - 1.89 08/03/22 - 2.10 & 24.8% 07/30/23 - 1.72 Follow up 07/2024 with PSA with [facility] or sooner if needed. Pt understands and agrees with plan. 3. Asymptomatic microscopic hematuria (R31.21: Asymptomatic microscopic hematuria) UA shows small blood. No gross hematuria. Overall the patient is doing fairly well with a decrease out of 10 on his IPSS score, status post UroLift. He is fairly happy with the result. We will now try to wean down the silodosin, going one every other day, then twice weekly, then once a week, then wean off. Knows to restart if needed. The patient will follow-up then with Kirstin Magana PA-C in the [place] office with a repeat PSA level in about 6 months. Follow-up With When Contact Information IZZY OWENS, TENA Balbuena, URL [address] [place] [address] Additional Instructions: 07/2024 with PSA with [facility] Patient Education Benign Prostatic Hyperplasia I, Tracie Campuzano, personally scribed for Dr. Myrick on 03/07/2024 09:42:47. . Documentation recorded by the scribe, Tracie Campuzano, accurately reflects the services(s) I performed and decisions made by me. Authenticated by Dr. Myrick on 03/07/2024 09:44:40. Portions of this record may have been created with voice recognition artificial intelligence software, specifically [employer], [employer] and or [employer]. Substitutions may have occurred due to the inherent limitations of voice recognition and artificial intelligence software. Problem List/Past Medical History Ongoing Acid reflux Asymptomatic microscopic hematuria BPH with urinary obstruction Epididymal cyst Epididymitis HTN - Hypertension Impotence Insomnia Microscopic hematuria Nocturia Post-void dribbling PTSD - Post-traumatic stress disorder RSD - Reflex sympathetic dystrophy Screening PSA (prostate specific antigen) Smoker Testicular lump Weak urine stream Historical No qualifying data Procedure/Surgical History Cystoscopy (04/06/2019), Arthroscopy of knee, Arthroscopy of shoulder, Bilateral cataracts, Capsulotomy of eye lens, Cholecystectomy, (more content not included)... [facility] Comment on above: Result Comment: Elec tronically Signed By: Greg MYRICK MD\.br\Date and Time Signed: 03/07/24 09:48 EDT\.br\Electronically Co-Signed By: Tracie Campuzano\.br\Date and Time Co-Signed: 03/07/24 09:43 EDT Ambulatory Visit Summaryon 0 11-29-2023 Ambulatory Visit Summary KUN HENLEY SR :1960 Visit Date:11/29/2023 Ambulatory Visit Instructions Your Diagnosis BPH with urinary obstruction Screening PSA (prostate specific antigen) Asymptomatic microscopic hematuria Impotence Your Care Team Attending Physician - Greg MYRICK MD Primary Care Physician - Saturnino Hart MD This Is Your Medications List silodosin (Rapaflo 4 mg oral capsule) Contact prescribing physician if questions or concerns amlodipine (amLODIPine 5 mg Tab) citalopram (CeleXA 20 mg Tab) lisinopril (lisinopril 20 mg Tab) omeprazole (omeprazole 40 mg Cap-EC) tramadol Procedures Performed Cystoscopy (04/06/2019), Arthroscopy of knee, Arthroscopy of shoulder, Bilateral cataracts, Capsulotomy of eye lens, Cholecystectomy, Replacement of total knee joint, Tympanic ventilation tube in external ear canal. Discharge Vitals Temperature (Temporal Artery) 37 ?C Heart Rate (Peripheral) 75 Respiratory Rate 16 Blood Pressure 138/81 Height 182 cm Height 72 in Weight 127 kg Weight 279.4 lb BMI 38.34 What to do next Scheduled Follow-Up Appointments Wednesday 9:00 AM EDT With: ELEN MACIEL, Greg Petty Where: [facility] Patient Educationon 11-29-19 Patient Education Urology Benign Prostatic Hyperplasia Benign prostatic hyperplasia (BPH) is an enlarged prostate gland that is caused by the normal aging process. The prostate may get bigger as a man gets older. The condition is not caused by cancer. The prostate is a walnut-sized gland that is involved in the production of semen. It is located in front of the rectum and below the bladder. The bladder stores urine. The urethra carries stored urine out of the body. An enlarged prostate can press on the urethra. This can make it harder to pass urine. The buildup of urine in the bladder can cause infection. Back pressure and infection may progress to bladder damage and kidney (renal) failure. What are the causes? This condition is part of the normal aging process. However, not all men develop problems from this condition. If the prostate enlarges away from the urethra, urine flow will not be blocked. If it enlarges toward the urethra and compresses it, there will be problems passing urine. What increases the risk? This condition is more likely to develop in men older than 50 years. What are the signs or symptoms? Symptoms of this condition include: ? Getting up often during the night to urinate. ? Needing to urinate frequently during the day. ? Difficulty starting urine flow. ? Decrease in size and strength of your urine stream. ? Leaking (dribbling) after urinating. ? Inability to pass urine. This needs immediate treatment. ? Inability to completely empty your bladder. ? Pain when you pass urine. This is more common if there is also an infection. ? Urinary tract infection (UTI). How is this diagnosed? This condition is diagnosed based on your medical history, a physical exam, and your symptoms. Tests will also be done, such as: ? A post-void bladder scan. This measures any amount of urine that may remain in your bladder after you finish urinating. ? A digital rectal exam. In a rectal exam, your health care provider checks your prostate by putting a lubricated, gloved finger into your rectum to feel the back of your prostate gland. This exam detects the size of your gland and any abnormal lumps or growths. ? An exam of your urine (urinalysis). ? A prostate specific antigen (PSA) screening. This is a blood test used to screen for prostate cancer. ? An ultrasound. This test uses sound waves to electronically produce a picture of your prostate gland. Your health care provider may refer you to a specialist in kidney and prostate diseases (urologist). How is this treated? Once symptoms begin, your health care provider will monitor your condition (active surveillance or watchful waiting). Treatment for this condition will depend on the severity of your condition. Treatment may include: ? Observation and yearly exams. This may be the only treatment needed if your condition and symptoms are mild. ? Medicines to relieve your symptoms, including: ? Medicines to shrink the prostate. ? Medicines to relax the muscle of the prostate. ? Surgery in severe cases. Surgery may include: ? Prostatectomy. In this procedure, the prostate tissue is removed completely through an open incision or with a laparoscope or robotics. ? Transurethral resection of the prostate (TURP). In this procedure, a tool is inserted through the opening at the tip of the penis (urethra). It is used to cut away tissue of the inner core of the prostate. The pieces are removed through the same opening of the penis. This removes the blockage. ? Transurethral incision (TUIP). In this procedure, small cuts are made in the prostate. This lessens the prostate's pressure on the urethra. ? Transurethral microwave thermotherapy (TUMT). This procedure uses microwaves to create heat. The heat destroys and removes a small amount of prostate tissue. ? Transurethral needle ablation (TUNA). This procedure uses radio frequencies to destroy and remove a small amount of prostate tissue. ? Interstitial laser coagulation (ILC). This procedure uses a laser to destroy and remove a small amount of prostate tissue. ? Transurethral electrovaporization (TUVP). This procedure uses electrodes to destroy and remove a small amount of prostate tissue. ? Prostatic urethral lift. This procedure inserts an implant to push the lobes of the prostate away from the urethra. Follow these instructions at home: ? Take dish-sdi-gvbqqhf and prescription medicines only as told by your health care provider. ? Monitor your symptoms for any changes. Contact your health care provider with any changes. ? Avoid drinking large amounts of liquid before going to bed or out in public. ? Avoid or reduce how much caffeine or alcohol you drink. ? Give yourself time when you urinate. ? Keep all follow-up visits. This is important. Contact a health care provider if: ? You have unexplained back pain. ? Your symptoms do not get better with treatment. ? You develop side effects from the medicine (more content not included)... [facility] Screenson 11-29-2023 Screens [id number]. 00TIFF [facility] Urology Office/Clinic Noteon 11-29-2023 Urology Office/Clinic Note Chief Complaint Pt is here for PO UroLift HPI [place] [facility] [place] DX; BPH, Screening PSA, microscopic hematuria, impotence Most current PSA 07/30/23- 1.72 Previous PSA 08/03/22- 2.1 & 24.8% Dysuria: mild burning Incomplete bladder emptying: denies Hematuria: denies Frequency: yes Urgency: yes Nocturia: 3-4x a night Stream: weak stream Leaking: denies Post void dripping: denies Wearing pads/ Depends: denies Urge incontinence: denies Stress incontinence: denies Incontinence without Sensory Awareness: denies Abdominal pain: denies Flank pain: denies Sexual complaints: _ History of Present Illness Tests reviewed: reviewed UA I have reviewed the previous health record information and history for this patient from . I have reviewed and verified the staff HPI to be accurate for this encounter. There have been no associated fever, chills, flank pain, or blood in the urine. Denies any urinary infections since last encounter. Review of Systems PHQ Score Initial Depression Screen Score: 0 SCORE ROS - Provider Constitutional: denies weight loss, denies hot flashes. Eyes: denies eye problems. Gastrointestinal: denies nausea, denies vomiting. Cardiovascular: denies chest pain or angina. Integumentary: no dryness Musculoskeletal: denies musculoskeletal symptoms. ENMT: denies otolaryngeal symptoms. Respiratory: no shortness of breath. Heme/Lymph: denies easy bleeding tendency, denies easy bruising tendency. Psychiatric: no confusion, no anxiety. Genitourinary: See HPI. Physical Exam Vitals & Measurements T: 37 ?C(Temporal Artery) HR: 75(Peripheral) RR: 16 BP: 138/81 HT: 72 in HT: 182 cm WT: 127 kg WT: 279.4 lb BMI: 38.34 General Appearance: alert, no distress, well nourished, well developed male. Assessment/Plan 1. BPH with urinary obstruction (N40.1: Benign prostatic hyperplasia with lower urinary tract symptoms) S/p cysto 04/06/19 - moderate hypertrophy. S/p UroLift 6 implants 11/01/23 IPSS 17(7), PVR 39mL UA today shows small blood and no signs of infection. Pt is currently taking Rapaflo 4mg QD. Pt states that his flow is good initially, dribbles towards the end, the urine output volume is good, takes a while to empty, voids every 3 hours, feels his initial stream is better than what his stream was prior to before. Counseled pt on the possible causes of his urinary sxs, advised pt that his sxs may take a while to improve with time. Advised pt to continue taking the Rapaflo as above. Counseled pt to limit or avoid bladder irritants and continue with his water intake. Follow up in 3 mos w/PVR. All questions/concerns were discussed. Pt to call the office if he encounters any issues prior. Pt acknowledges understanding. -Avoid/Limit bladder irritants. -Continue Rapaflo as above, refill sent to pharmacy on file. 2. Screening PSA (prostate specific antigen) (Z12.5: Encounter for screening for malignant neoplasm of prostate) PSA: 08/01/21 - 1.89 08/03/22 - 2.1 & 24.8% 07/30/23 - 1.72 -low and stable. Cont to monitor 3. Asymptomatic microscopic hematuria (R31.21: Asymptomatic microscopic hematuria) S/p cysto 04/06/19 neg for b.t. or lesions. Micro UA 07/2022 neg 0-3 RBCs Denies gross hematuria. UA today small blood, likely due to recent procedure. -Call if visible blood in urine 4. Impotence (N52.9: Male erectile dysfunction, unspecified) EMRE 15 Has failed multiple oral medications. Discussed alternative treatment's at last visit however pt did not wish to pursue treatment. Does not wish to discuss at this time, focused on #1. -Not a priority at this time Overall the patient still has a fair amount of irritative voiding symptoms and is scoring a 17 on his IPSS score sheet. When discussing his urinary flow when he is able to have about a 3-hour time interval between urinations the initial part of the flow is good and then slows down and takes a long time to completely empty the bladder. PVR was less than 40 cc today. Hopefully he is just taken a while to have the irritative voiding symptoms dissipate. Will keep him on his sildosin at same dosage. Refill sent. If symptoms would persist beyond 6 months to a year then repeat cystoscopic evaluation should be considered. Follow-up in 3 months Follow-up With When Contact Information ELEN MACIEL, Greg Petty, URL In [address] [address]- Additional Instructions: w/PVR Patient Education Benign Prostatic Hyperplasia ISpring, personally scribed for Dr. Myrick on 11/29/2023 09:49:13. . Documentation recorded by the scribeSpring, accurately reflects the services(s) I performed and decisions made by me. Authenticated by Dr. Myrick on 11/29/2023 09:50:46. Portions of this record may have been created with voice recognition artificial intelligence software, [employer] (more content not included)... [facility] Comment on above: Result Comment: Elec tronically Signed By: Greg MYRICK MD\.br\Date and Time Signed: 11/29/23 09:52 EST\.br\Electronically Co-Signed By: Spring Valenzuela\.br\Date and Time Co-Signed: 11/29/23 09:49 EST Consent for Procedure/Surger yon 11-01-2023 Consent for Procedure/Surgery [id number] 0TIFF [facility] Consent for Treatmenton Consent for Treatment [id number] 0TIFF [facility] Inpatient Patient Summaryon 11-01-2023 Inpatient Patient Summary [address] [address] Clinical Summary Person Information Name: KUN HENLEY SR Age: 62 Years : 1960 Sex: Male PCP: Saturnino Hart MD Marital Status: Race: White Ethnicity: Non- or Language: Mosotho Visit Id: Visit Reason: BPH WITH LUTS Speciality: Acuity: Enc Type: Outpatient Med Service: Surgery Arrival: 11/01/2023 13:34:03 Discharge: Dispo Type: Address: [address] [place] [id number] Provider Notes: Diagnosis: Problems Active Screening PSA (prostate specific antigen) Asymptomatic microscopic hematuria BPH with urinary obstruction Microscopic hematuria Impotence Epididymal cyst Nocturia Testicular lump Weak urine stream Post-void dribbling Epididymitis Smoker Acid reflux Insomnia RSD - Reflex sympathetic dystrophy PTSD - Post-traumatic stress disorder HTN - Hypertension Smoking Status: Functional Status: Sensory Deficits: History of Falls: Mobility Assistance Prior to Admission: ADLs: Current Level of Assistance for Self-Care/Mobility: Cognitive Status: Allergies penicillins (Hives) Ambien (Hives) clindamycin (Hives) Vicodin (Insomnia) zolpidem (Unknown) acetaminophen-hydrocod one (Unknown) Laboratory or Other Results This Visit (last charted value for your 11/01/2023 visit) No Laboratory or Other Results This Visit Measurements: Height: 182 cm Weight: Blood Pressure: Not Valued / Not Valued BMI: Procedures No Procedures Documented Immunizations No Immunizations Documented This Visit Final Med List: acetaminophen-hydrocod one ([place] 325 mg-5 mg oral tablet) Take 1 hour prior to your procedure. Refills: 0. acetaminophen-tramadol (Ultracet 325 mg-37.5 mg Tab) take 1-2 every 6 hrs prn for pain - following procedure. Refills: 0. amlodipine (amLODIPine 5 mg Tab) 1 Tablets By Mouth every day. citalopram (CeleXA 20 mg Tab) By Mouth every day. diazepam (Valium 10 mg Tab) Take 1 hr prior to procedure. Refills: 0. lisinopril (lisinopril 20 mg Tab) 1 Tablets By Mouth every day. omeprazole (omeprazole 40 mg Cap-EC) By Mouth every day. oxybutynin (oxybutynin 5 mg Tab) 1 tab(s) Oral bid after procedure. Refills: 0. silodosin (Rapaflo 4 mg oral capsule) 1 Capsules By Mouth every day. Refills: 3. tramadol 50 Milligram By Mouth 2 times a day as needed as needed for pain. Care Team Members: Attending Physician: Greg MYRICK MD Consulting Physician: Referring Physician: Greg MYRICK MD Follow up: With: Address: When: Greg MYRICK [address] [place] [address], [address], [place] [address] Business (1) Comments: Please set up a visit by the end of the week to have your catheter removed. Some discharge instructions should accompany this. Patient Education Information: Lue - Urolift Post-Op Instructions (Custom) [facility] IntraOperative Documentson 0 11-01-2023 IntraOperative Documents [id number] 0TIFF [facility] Main OR Intraoperative Recor don 11-01-2023 Main OR Intraoperative Record IntraOp Document Type FTURO Summary Primary Physician: Greg MYRICK MD Finalized Date/Time: 11/01/23 15:04:26 Pt. Name: KUN HENLEY SR Angi Long/Sex: 1960 Male Med Rec #: [id number] Physician: Greg MYRICK MD Financial #: [id number] Pt. Type: O Room/Bed: / Admit/Disch: 11/01/23 13:34:03 - Institution: Case Times FTURO Entry 1 Patient Times In Room 11/01/23 14:20:00 Out Room 11/01/23 14:55:00 Procedure Times Start 11/01/23 14:24:00 Stop 11/01/23 14:42:00 Anesthesia Times Last Modified By: Camila SY, ALLYOR, Estefania 11/01/23 14:45:11 Case Attendance FTURO Entry 1 Entry 2 Entry 3 Case Attendee Greg MYRICK MD RN, CNOR, Karine CARVER, Helene Mac Role Performed Surgeon - Primary Weaver Wire Loom - Primary Scrub - Primary Time In 11/01/23 14:20:00 11/01/23 14:20:00 11/01/23 14:20:00 Time Out 11/01/23 14:55:00 11/01/23 14:55:00 11/01/23 14:55:00 Procedure CYSTOSCOPY LOCAL CYSTOSCOPY LOCAL CYSTOSCOPY LOCAL UROLIFT(.) UROLIFT(.) UROLIFT(.) Comments Last Modified By: Camila RN, CNOR, Camila RN, CNOR, Camila RN, ALLYOR, Estefania 11/01/23 Estefania 11/01/23 Estefania 11/01/23 14:45:14 14:45:14 14:45:14 Surgical Procedures FTURO Entry 1 Procedure Description Procedure CYSTOSCOPY LOCAL UROLIFT Modifiers . Surgeon Description CYSTO With UROLIFT Primary Procedure Yes Primary Surgeon Greg MYRICK MD Start 11/01/23 14:24:00 Stop 11/01/23 14:42:00 Anesthesia Type Local Surgical Service Urology Wound Class 2 - Clean-Contaminated Last Modified By: Camila SY, ALLYOR, Estefania 11/01/23 14:45:16 General Comments: 6 omplants used General Case Data FTURO Pre-Care Text: Classifies surgical wound, implements aseptic technique, initiates traffic control Entry 1 Case Information OR URO 1 FT Case Level None Wound Class 2 - Clean-Contaminated Specialty Urology Preop Diagnosis BPH WITH LUTS Postop Same As Preop Yes Postop Diagnosis BPH WITH LUTS Outcomes Met? Yes Last Modified By: ANTONIO Jensen RN, Ruthann 11/01/23 14:12:49 Post-Care Text: The patient is free from signs and symptoms of infection EU IntraOp - FTURO Pre-Care Text: Implements protective measures prior to operative or invasive procedure, confirms identity before the operative or invasive procedure, verifies operative procedure, surgical site, and laterality Entry 1 EU Perioperative Protocols Procedure(s) CYSTOSCOPY LOCAL Patient Identity Birthday, ID Band UROLIFT(.) Verified (select at Check, Patient least 2): Participation Consents / H and P HandP, Surgery/Procedure Operative Site N/A Verified Consent Marking Verified Surgical Site Yes Laterality Verified n/a Verified Procedure Verified Yes Correct Patient Yes Position Verified Availability Equipment, Implant, Time Out Greg MYRICK MD, Verified (If Medication Participants ANTONIO Jensen RN, Applicable) Karine Mac CST, eHlene Whitley Time Out Complete 11/01/23 14:23:00 Allergies Reviewed? Yes Allergies Reviewed Self/Patient With Body Position Low Lithotomy Prep Area penis Prep Agents Betadine Solution Skin. Condition Unable to Visualize Additional None Specimens Collected Vitals - EU Blood Pressure Pulse Respirations SPO2 EBL 0 IandO - EU Total Intake 0 mL Total Output 0 mL Outcomes Met? Yes Last Modified By: ANTONIO Jensen RN, Ruthann 11/01/23 14:31:45 Post-Care Text: The patient is free from signs and symptoms of injury caused by extraneous objects Implant Log FTURO Pre-Care Text: Records devices implanted during the operative or invasive procedure Entry 1 Implant/Explant Implant Implant Identification Description urolift Serial Number [id number] Lot Number [id number] Coutierier neotract Expiration Date 05/25/25 Usage Data Implant Site prostate Quantity 6 Outcomes Met? Yes Last Modified By: ANTONIO Jensen RN, Ruthann 11/01/23 14:38:04 Post-Care Text: The patient is free from signs and symptoms of injury caused by extraneous objects Sign Out FTURO Entry 1 Before Patient Leaves OR Nurse verbally Yes Nurse verbally n/a confirms with the confirms with the team the name of team that the procedure(s) instrument, sponge, recorded and needle counts are correct (or N/A) Nurse verbally n/a Nurse verbally n/a confirms with the confirms with the team how the team whether there specimen is labeled are any equipment (including patient problems to be name), if applicable addressed Sign Out Complete 11/01/23 14:51:00 Last Modified By: ANTONIO Jensen RN, Ruthann 11/01/23 14:45:26 Case Comments Finalized By: ANTONIO Jensen RN, Ruthann Document Signatures Signed By: ANTONIO Jensen RN, Ruthann 11/01/23 14:45 ANTONIO Jensen RN, Ruthann 11/01/23 15:04 [facility] Main OR Preoperative Recordo n 11-01-2023 Main OR Preoperative Record Holding Area Document Type FTURO Summary Primary Physician: Greg MYRICK MD Finalized Date/Time: 11/01/23 13:52:49 Pt. Name: KUN HENLEY SR./Sex: 1960 Male Med Rec #: [id number] Physician: Greg MYRICK MD Financial #: [id number] Pt. Type: O Room/Bed: / Admit/Disch: 11/01/23 13:34:03 - Institution: Case Times Holding FTURO Pre-Care Text: Verifies consent for planned procedure, identifies individual values and wishes concerning care, includes family members in perioperative teaching Secures patient's records' belongings, and valuables, maintains patient's dignity and privacy, and maintains patient confidentiality Entry 1 In Holding 11/01/23 13:51:00 Outcomes Met? Yes Last Modified By: Helene Purcell RN 11/01/23 13:51:19 Post-Care Text: The patient participates in decisions affecting his or her perioperative plan of care The patient's right to privacy is maintained Surgery Checklist FTURO Entry 1 Patient Birthday, ID Band Procedure History and Physical, Identification: Check, Patient Verification: Surgical Consent, With Participation Patient NPO after Midnight: No Personal Items: Jewelry Personal Items WATCH X 1; RING X 1 Limitations: UP AD JOE Comment: Complaints of Pain: No Pain Comment: 0/10 Skin Integrity Dry, Warm Vitals - EU Blood Pressure 135/80 Pulse 101 bpm Respirations 16 br/min SPO2 95 % Additional None RN Reviewed Yes Specimens Collected Last Modified By: Helene Purcell RN 11/01/23 13:52:44 Finalized By: Helene Purcell RN Document Signatures Signed By: Helene Purcell RN 11/01/23 13:52 [facility] Operative Reporton Operative Report Patient: KNU HENLEY SR Age: 62 years Sex: Male : 1960 Associated Diagnoses: None Author: Greg MYRICK MD Procedure Operative Information Details: Date/ Time: 11/01/2023 14:46:00. Pre-Op Dx: BPH w/ LUTS - N40.1. Post-Op Dx: Same. Anesthesia Type: Local. Procedure: Cystoscopy with UroLift Prostatic Urethral Lift. Complications: None. Risks/Benefits/Informe d Consent: Surgical risks, benefits, details of the procedure have been explained to the patient, Full informed consent has been obtained. Indications: This patient has bladder outlet obstructive symptoms refractory to medications, wishes to no longer take medications, He is strongly desirous to try the Urolift procedure. Intraoperative Information Prepped: Patient received 1 hour prior to procedure (10 mg diazepam, 5/325 mg of [place]), Local Anesthesia (60cc 2% Xylocaine liquid inserted into bladder, 20cc Xylocaine 2% jelly inserted into urethra, Penile clamp applied for 20 min dwell prior to procedure with patient in sitting position). Procedure: A 20F cystoscope was inserted into the bladder, The cystoscopy bridge was replaced with a UroLift delivery device, The first treatment site was the patient's left side approximately 1.5 cm distal to the bladder neck, The distal tip of the delivery device was then angled laterally approximately 20 degrees at this position to compress the lateral lobe, The trigger was pulled, thereby deploying a needle containing the implant through the prostate, The needle was then retracted, allowing one end of the implant to be delivered to the capsular surface of the prostate, The implant was then tensioned to assure capsular seating and removal of slack monofilament, The device was then angled back toward midline and slowly advanced proximally (typically 3-4mm) until cystoscopic verification of the monofilament being centered in the delivery bay, The urethral end piece was then affixed to the monofilament thereby tailoring the size of the implant, Excess filament was then severed, The delivery device was then readvanced into the bladder, The delivery device was then replaced with cystoscope and bridge and the implant location and opening effect was confirmed cystoscopically, The same procedure was then repeated on the right side, Two additional implants were delivered just proximal to the veru montanum, again one on right and one on left side of the prostate, following the same technique, Cystoscopy then revealed a persistent area of obstruction, and two more implants were delivered in the mid prostate, A final cystoscopy was conducted first to inspect the location and state of each implant, And second, to confirm the presence of a continuous anterior channel was present through the prostatic urethra with irrigation flow turned off, All instruments were removed, The patient was then allowed to sit up, A 16 Fr Gould catheter was placed at the end of the procedure. Specimens Removed: None. Devices Implanted: 6 Urolift devices. Postoperative Information Discharge: The patient tolerated the procedure well and was subsequently discharged home, F/U by end of the week for Gould catheter removal. . [facility] Comment on above: Result Comment: Elec tronically Signed By: Greg MYRICK MD\.br\Date and Time Signed: 11/01/23 14:46 EST Outpatient Surgery Discharge Instructionon 11-01-2023 Outpatient Surgery Discharge Instruction [address] [address] Patient Discharge Instructions PERSON INFORMATION Name: KUN HENLEY SR Date of : 1960 Current Date: 11/01/2023 14:45:38 PHYSICIANS Admitting Physician: Greg MYRICK MD Comment: Discharge Diagnosis: KUN HENLEY SR Angi has been given the following list of follow-up instructions, prescriptions, and patient education materials: IF UNABLE TO CONTACT YOUR PHYSICIAN AND YOU FEEL IT IS AN EMERGENCY, GO TO THE NEAREST EMERGENCY ROOM OR CALL 911 Follow up: With: Address: When: Greg MYRICK [address] [place] [address], [address], [address] [address] Business (1) Comments: Please set up a visit by the end of the week to have your catheter removed. Some discharge instructions should accompany this. Comment: PATIENT EDUCATION INFORMATION Instructions: [facility] [place], [place] Post-Operative Instructions for UroLift After your procedure it is normal to have: Gross Hematuria (blood in the urine) You may even notice blood clots in your urine. A small amount of blood may apppear to be a lot of blood in your urine as it is diluted. Restarting your blood thinner, increased activity and heavy lifting could increase the amount of bleeding. The bleeding may be sporadic (off and on) over the next 2-3 weeks. Ensure you are hydrating to assist in flushing the blood to prevent voiding complications. In the event you are unable to void, please reach out to our office. If the office is closed, you will need to report to the local emergency room. Blood in your semen and stool may be present. The blood in your semen is not harmful to you or your partner. This will resolve with time. Frequency/urgency/burn ing with urination is very common. This is due to irritation from your procedure. These symptoms do not indicate that your procedure was unsuccessful or that there is an infection. Ensure you are hydrating! You may try AZO over the counter as needed for urinary discomfort. Pain/discomfort are normal as well. There has been a non-narcotic prescription sent to your pharmacy. You may alternate this prescription with over the counter Ibuprofen. Your pain and discomfort should improve within a few days. When do I need to call the office? We ask that you reach out to the office if you experience a temperature of 100.4 ? F or higher, excessive urinary bleeding, symptoms of infection, inability to urinate or uncontrolled pain. If the office is closed, you may need to present to the local emergency department. Gould catheter If you have a catheter and will remove it at home, you may do so the next day if urine is clear and no longer red/pink in color. If urine is red, wait until clear to remove the catheter. See attached instructions for removal. Postop UroLift Instructions ? Complete your antibiotic as instructed. ? Remain on all your urinary medication until follow up. ? Take your pain madications and AZO as needed. ? Resume any blood thinners 48 hour post procedure. ? Continue to hydrate! ? Minimize your activity for 72-96 hours post procedure. ? If you are prescribed Oxybutynin for bladder spasms, you may take this medication every 8 hours as needed. This medication may cause dry mouth/eyes and constipation. Taking an over the counter stool softener and drinking plenty of water will help with side effects. Gould Catheter Removal Please call the office to schedule a visit to remove your catheter , perhaps at the end of this week. When to Call Your Healthcare Provider Call the healthcare provider right away if: ? You have a fever of 100.4 ?F (38?C) or higher, or as directed by your healthcare provider. ? You have questions about removing the catheter. ? The catheter does not come out with gentle pulling. ? You cannot urinate within 8 hours of removing the catheter. ? Your belly (abdomen) is painful or bloated ? You have burning pain with urination that lasts for 24 hours. ? You see a lot of blood in your urine. Light bleeding for 24 hours is normal. ? It feels like the bladder is not emptying. Isabelle, LORY OROPEZA, KUN Whitley, have received the attached patient education materials/instructions and have verbalized understanding: May we do a follow up call? Yes No I was present when discharge instructions were given Patient Signature Date Clinican/Nurse Signature ___ Date You may receive a survey from [employer] asking you to rate your care experience. Your feedback is important and will help us understand what we do well and how we can improve the quality of care we provide to you, your loved ones and our community. It?s an honor to serve you. (more content not included)... [facility] Patient Educationon 11-01-19 24 Patient Education [facility] [place], [place] Post-Operative Instructions for UroLift After your procedure it is normal to have: Gross Hematuria (blood in the urine) You may even notice blood clots in your urine. A small amount of blood may apppear to be a lot of blood in your urine as it is diluted. Restarting your blood thinner, increased activity and heavy lifting could increase the amount of bleeding. The bleeding may be sporadic (off and on) over the next 2-3 weeks. Ensure you are hydrating to assist in flushing the blood to prevent voiding complications. In the event you are unable to void, please reach out to our office. If the office is closed, you will need to report to the local emergency room. Blood in your semen and stool may be present. The blood in your semen is not harmful to you or your partner. This will resolve with time. Frequency/urgency/burn ing with urination is very common. This is due to irritation from your procedure. These symptoms do not indicate that your procedure was unsuccessful or that there is an infection. Ensure you are hydrating! You may try AZO over the counter as needed for urinary discomfort. Pain/discomfort are normal as well. There has been a non-narcotic prescription sent to your pharmacy. You may alternate this prescription with over the counter Ibuprofen. Your pain and discomfort should improve within a few days. When do I need to call the office? We ask that you reach out to the office if you experience a temperature of 100.4 ? F or higher, excessive urinary bleeding, symptoms of infection, inability to urinate or uncontrolled pain. If the office is closed, you may need to present to the local emergency department. Gould catheter If you have a catheter and will remove it at home, you may do so the next day if urine is clear and no longer red/pink in color. If urine is red, wait until clear to remove the catheter. See attached instructions for removal. Postop UroLift Instructions ? Complete your antibiotic as instructed. ? Remain on all your urinary medication until follow up. ? Take your pain madications and AZO as needed. ? Resume any blood thinners 48 hour post procedure. ? Continue to hydrate! ? Minimize your activity for 72-96 hours post procedure. ? If you are prescribed Oxybutynin for bladder spasms, you may take this medication every 8 hours as needed. This medication may cause dry mouth/eyes and constipation. Taking an over the counter stool softener and drinking plenty of water will help with side effects. Gould Catheter Removal Please call the office to schedule a visit to remove your catheter , perhaps at the end of this week. When to Call Your Healthcare Provider Call the healthcare provider right away if: ? You have a fever of 100.4 ?F (38?C) or higher, or as directed by your healthcare provider. ? You have questions about removing the catheter. ? The catheter does not come out with gentle pulling. ? You cannot urinate within 8 hours of removing the catheter. ? Your belly (abdomen) is painful or bloated ? You have burning pain with urination that lasts for 24 hours. ? You see a lot of blood in your urine. Light bleeding for 24 hours is normal. ? It feels like the bladder is not emptying. [facility] IntraOperative Documentson 0 09-28-2023 IntraOperative Documents [id number]. 00TIFF [facility] Consent for Procedure/Surger yon 09-23-2023 Consent for Procedure/Surgery [id number]. 00TIFF [facility] Consent for Treatmenton 08-28 Consent for Treatment [id number] 0TIFF [facility] Inpatient Patient Summaryon 09-23-2023 Inpatient Patient Summary [place] [address] Clinical Summary Person Information Name: KUN HENLEY SR Age: 62 Years : 1960 Sex: Male PCP: Saturnino Hart MD Marital Status: Race: White Ethnicity: Non- or Language: Mosotho Visit Id: Visit Reason: BPH WITH LUTS MICRO HEMATURIA Speciality: Acuity: Enc Type: Outpatient Med Service: Surgery Arrival: 09/23/2023 08:17:32 Discharge: Dispo Type: Address: [place] [id number] Provider Notes: Diagnosis: Problems Active Screening PSA (prostate specific antigen) Asymptomatic microscopic hematuria BPH with urinary obstruction Microscopic hematuria Impotence Epididymal cyst Nocturia Testicular lump Weak urine stream Post-void dribbling Epididymitis Smoker Acid reflux Insomnia RSD - Reflex sympathetic dystrophy PTSD - Post-traumatic stress disorder HTN - Hypertension Smoking Status: Functional Status: Sensory Deficits: History of Falls: Mobility Assistance Prior to Admission: ADLs: Current Level of Assistance for Self-Care/Mobility: Cognitive Status: Allergies penicillins (Hives) Ambien (Hives) clindamycin (Hives) Vicodin (Insomnia) zolpidem (Unknown) acetaminophen-hydrocod one (Unknown) Laboratory or Other Results This Visit (last charted value for your 09/23/2023 visit) No Laboratory or Other Results This Visit Measurements: Height: 182 cm Weight: Blood Pressure: Not Valued / Not Valued BMI: Procedures No Procedures Documented Immunizations No Immunizations Documented This Visit Final Med List: amlodipine (amLODIPine 5 mg Tab) 1 Tablets By Mouth every day. ciprofloxacin (Cipro 500 mg Tab) 1 Tablets By Mouth As Directed. Pt to take 1 tab the day before procedure and the 2nd tab the day of procedure once completed.. Refills: 0. citalopram (CeleXA 20 mg Tab) By Mouth every day. lisinopril (lisinopril 20 mg Tab) 1 Tablets By Mouth every day. omeprazole (omeprazole 40 mg Cap-EC) By Mouth every day. silodosin (Rapaflo 4 mg oral capsule) 1 Capsules By Mouth every day. Refills: 3. tramadol 50 Milligram By Mouth 2 times a day as needed as needed for pain. Care Team Members: Attending Physician: rGeg MYRICK MD Consulting Physician: Referring Physician: Greg MYRICK MD Follow up: With: Address: When: Greg MYRICK [facility] [address], [place] [id number] Business (1) Comments: As we discussed you are a candidate for any of the procedures that Kirstin Magana spoke with you about. My valve and regulator repairer will set you up for a UroLift procedure. Have a great day Patient Education Information: EU - Cystoscopy Discharge Instructions (Custom) [facility] IntraOperative Documentson 1 11-24-2022 IntraOperative Documents [id number]. 00TIFF [facility] Main OR Intraoperative Recor don 09-23-2023 Main OR Intraoperative Record IntraOp Document Type [facility] Summary Primary Physician: Gerg MYRICK MD Finalized Date/Time: 09/23/23 08:43:59 Pt. Name: LORY OROPEZAKUN D.O.B./Sex: 1960 Male Med Rec #: [id number] Physician: Greg MYRICK MD Financial #: [id number] Pt. Type: O Room/Bed: / Admit/Disch: 09/23/23 08:17:32 - Institution: Case Times FT[facility]O Entry 1 Patient Times In Room 09/23/23 08:32:00 Out Room 09/23/23 08:49:00 Procedure Times Start 09/23/23 08:35:00 Stop 09/23/23 08:43:00 Anesthesia Times Last Modified By: Alayna SY, Jaci Petty 09/23/23 08:43:54 General Comments: [place] ENDED [place] 0838, PROSTATE BIOPSY STARTED AT 0839 -Celeste BOYCE RN Case Attendance FT[facility]O Entry 1 Entry 2 Entry 3 Case Attendee Greg MYRICK MD, RN, Kale Lowry Role Performed Surgeon - Primary Weaver Wire Loom - Primary Scrub - Primary Time In 09/23/23 08:32:00 09/23/23 08:32:00 09/23/23 08:32:00 Time Out 09/23/23 08:49:00 09/23/23 08:49:00 09/23/23 08:49:00 Procedure PROSTATE TRANSRECTAL PROSTATE TRANSRECTAL PROSTATE TRANSRECTAL ULTRASOUND WITH BIO(.) ULTRASOUND WITH BIO(.) ULTRASOUND WITH BIO(.) Comments Last Modified By: Alayna SY, Jaci Boyce RN, Jaci Boyce RN, Jaci Petty 09/23/23 Carleen Petty 09/23/23 Carleen Petty 09/23/23 08:43:55 08:43:55 08:43:55 Entry 4 Case Attendee Helene Milton CST Role Performed Scrub - Primary Time In 09/23/23 08:32:00 Time Out 09/23/23 08:49:00 Procedure PROSTATE TRANSRECTAL ULTRASOUND WITH BIO(.) Comments Last Modified By: Jaci Boyce RN 09/23/23 08:43:55 Surgical Procedures FT[facility]O Entry 1 Procedure Description Procedure PROSTATE TRANSRECTAL Modifiers . ULTRASOUND WITH BIOPSY Surgeon Description CYSTOSCOPY AND PROSTATE TRANSRECTAL ULTRASOUND Primary Procedure Yes Primary Surgeon Greg MYRICK MD Start 09/23/23 08:35:00 Stop 09/23/23 08:43:00 Anesthesia Type Local Surgical Service Urology Wound Class 2 - Clean-Contaminated Last Modified By: Jaci Boyce RN 09/23/23 08:43:37 General Case Data [facility] Pre-Care Text: Classifies surgical wound, implements aseptic technique, initiates traffic control Entry 1 Case Information OR URO 1 FT Case Level None Wound Class 2 - Clean-Contaminated Specialty Urology Preop Diagnosis BPH WITH LUTS MICRO Postop Same As Preop Yes HEMATURIA Postop Diagnosis BPH WITH LUTS MICRO Outcomes Met? Yes HEMATURIA Last Modified By: Jaci Boyce RN 09/23/23 08:28:38 Post-Care Text: The patient is free from signs and symptoms of infection EU IntraOp - FT[facility]O Pre-Care Text: Implements protective measures prior to operative or invasive procedure, confirms identity before the operative or invasive procedure, verifies operative procedure, surgical site, and laterality Entry 1 EU Perioperative Protocols Procedure(s) PROSTATE TRANSRECTAL Patient Identity Birthday, ID Band ULTRASOUND WITH BIO(.) Verified (select at Check, Patient least 2): Participation Consents / H and P HandP, Surgery/Procedure Operative Site N/A Verified Consent Marking Verified Surgical Site Yes Laterality Verified n/a Verified Procedure Verified Yes Correct Patient Yes Position Verified Availability Equipment Time Out Greg MYRICK MD, Verified (If Participants Jaci Bocye RN Applicable) Gemma De La Torre Adam A, Helene Milton CST Time Out Complete 09/23/23 08:34:00 Allergies Reviewed? Yes Allergies Reviewed Self/Patient With Body Position Supine Prep Area PENIS AND RECTAL AREA Prep Agents Betadine Solution Skin. Condition Unable to Visualize Description PARTIALLY CLOTHED Additional None Specimens Collected Vitals - EU Blood Pressure Pulse Respirations SPO2 IandO - EU Outcomes Met? Yes Last Modified By: Jaci Boyce RN 09/23/23 08:35:34 Post-Care Text: The patient is free from signs and symptoms of injury caused by extraneous objects Sign Out FT[facility]O Entry 1 Before Patient Leaves OR Nurse verbally Yes Nurse verbally Yes confirms with the confirms with the team the name of team that the procedure(s) instrument, sponge, recorded and needle counts are correct (or N/A) Nurse verbally n/a Nurse verbally Yes confirms with the confirms with the team how the team whether there specimen is labeled are any equipment (including patient problems to be name), if applicable addressed Sign Out Complete 09/23/23 08:43:00 Last Modified By: Jaci Boyce RN 09/23/23 08:43:36 Case Comments Finalized By: Jaci Boyce RN Document Signatures Signed By: Jaci Boyce RN 09/23/23 08:43 [facility] Main OR Preoperative Recordo n 09-23-2023 Main OR Preoperative Record Holding Area Document Type FT[facility]O Summary Primary Physician: Greg MYRICK MD Finalized Date/Time: 09/23/23 08:31:17 Pt. Name: MELKUN Whitley SR/Sex: 1960 Male Med Rec #: [id number] Physician: Greg MYRICK MD Financial #: [id number] Pt. Type: O Room/Bed: / Admit/Disch: 09/23/23 08:17:32 - Institution: Case Times Holding [facility] Pre-Care Text: Verifies consent for planned procedure, identifies individual values and wishes concerning care, includes family members in perioperative teaching Secures patient's records' belongings, and valuables, maintains patient's dignity and privacy, and maintains patient confidentiality Entry 1 In Holding 09/23/23 08:21:00 Outcomes Met? Yes Last Modified By: Helene Purcell RN 09/23/23 08:21:41 Post-Care Text: The patient participates in decisions affecting his or her perioperative plan of care The patient's right to privacy is maintained Surgery Checklist FT[facility]O Entry 1 Patient Birthday, ID Band Procedure History and Physical, Identification: Check, Patient Verification: Surgical Consent, With Participation Patient NPO after Midnight: n/a Personal Items: Cataract Lens Implant, Jewelry Personal Items BILATERAL CATARACT LENS Limitations: UP AD JOE Comment: IMPLANT; RING X 1; WATCH X 1 Complaints of Pain: No Pain Comment: 0/10 Skin Integrity Dry, Warm Vitals - EU Blood Pressure 153/92 Pulse 86 bpm Respirations 16 br/min SPO2 96 % Additional None RN Reviewed Yes Specimens Collected Last Modified By: Helene Purcell RN 09/23/23 08:26:42 Finalized By: Helene Purcell RN Document Signatures Signed By: Helene Purcell RN 09/23/23 08:26 Helene Purcell RN 09/23/23 08:31 [facility] Operative Reporton Operative Report Patient: KUN HENLEY SR Age: 62 years Sex: Male : 1960 Associated Diagnoses: None Author: Greg MYRICK MD Procedure Operative Information Details: Date/ Time: 09/23/2023 08:50:00. Pre-Op Dx: BPH with obstruction/lower urinary tract symptoms (YHA69-NX N40.1, Working, Medical). Post-Op Dx: Same. Anesthesia Type: Local. Procedure: Transrectal ultrasound of the prostate. Complications: None. Risks/Benefits/Informe d Consent: Surgical risks, benefits, details of the procedure have been explained to the patient, Full informed consent has been obtained. Intraoperative Information Prepped: The patient was brought to the office suite, placed in the modified left lateral Rebollar position, The patient was draped appropriately. Procedure: Then 2% Xylocaine jelly was used for intrarectal anesthesia, After waiting several minutes, a well lubricated ultrasound probe was introduced per rectum, The prostate was carefully evaluated in the AP and Sagittal views. Volume: 37.8 CC. Specimens Removed. Devices Implanted: None. Postoperative Information Discharge: The patient tolerated the procedure well and was discharged home in satisfactory condition, The patient was instructed to (Finish antibiotics, Avoid strenuous activity). Radiology Report Narrative: Ultrasound probe is introduced and performed in the longitudinal and transverse plains, The gland measures (47.3 MM Length, 52.5 MM Width, 29.1 MM Depth, with a calculated volume of 37.8 CC), The prostatic capsule and seminal vesicles appear to be within normal limits, The peripheral zone demonstrates No abnormalities, Rest of the prostate demonstrates Calcifications. [facility] Comment on above: Result Comment: Elec tronically Signed By: Greg MYRICK MD\.br\Date and Time Signed: 09/23/23 08:52 EST Operative Report Patient: KUN HENLEY SR Age: 62 years Sex: Male : 1960 Associated Diagnoses: None Author: Greg MYRICK MD Procedure Operative Information Details: Date/ Time: 09/23/2023 08:48:00. Pre-Op Dx: BPH w/ LUTS - N40.1. Post-Op Dx: Same. Anesthesia Type: Local. Procedure: Local Cystoscopy. Complications: None. Risks/Benefits/Informe d Consent: Surgical risks, benefits, details of the procedure have been explained to the patient, Full informed consent has been obtained. Intraoperative Information Prepped: Patient is brought back to the endoscopy suite, Patient is placed in supine position, Patient prepped in the usual fashion with Betadine solution, 2% Xylocaine Jelly is placed per Urethra, After waiting several minutes the Cystoscope is introduced. The Urethra is: Normal. The Prostatic Urethra is: Obstructed, Moderate Hypertrophy, No median lobe, minimal universal protrusion of prostate into the bladder lumen. Minimal median bar. Lateral lobe intrusion. 4 cm long gland. . The Bladder is: Normal, Trabeculated Mild (1), No tumor, no stones. . The ureteral orifices: Show efflux of clear urine. Devices Implanted: None. Removal: Cystoscope is removed, The patient tolerated it well. Postoperative Information Discharge: Patient is discharged home with antibiotic coverage, Follow up arranged, Proceed with UROLIFT procedure. . [facility] Comment on above: Result Comment: Elec tronically Signed By: Greg MYRICK MD\.br\Date and Time Signed: 09/23/23 08:49 EST Outpatient Surgery Discharge Instructionon 09-23-2023 Outpatient Surgery Discharge Instruction [address] [address] Patient Discharge Instructions PERSON INFORMATION Name: KUN HENLEY SR Date of : 1960 Current Date: 09/23/2023 08:48:06 PHYSICIANS Admitting Physician: Greg MYRICK MD Comment: Discharge Diagnosis: KUN HENLEY SR has been given the following list of follow-up instructions, prescriptions, and patient education materials: IF UNABLE TO CONTACT YOUR PHYSICIAN AND YOU FEEL IT IS AN EMERGENCY, GO TO THE NEAREST EMERGENCY ROOM OR CALL 911 Follow up: With: Address: When: Greg MYRICK [address] [place] [address], [address], [address] [address] Business (1) Comments: As we discussed you are a candidate for any of the procedures that Kirstin Magana spoke with you about. My valve and regulator repairer will set you up for a UroLift procedure. Have a great day Comment: PATIENT EDUCATION INFORMATION Instructions: Cystoscopy ? Voiding after the procedure: there may be some pain, burning, urgency, frequency and blood tinged urine following the procedure. These symptoms usually resolve within 2-5 days. Drink the amount of fluid it takes to keep the urine pink to yellow or clear in color. Drinking enough water and fluids will help to ease any discomfort after your procedure. ? If you are having problems that seem out of the ordinary, please call. ? If unable to contact your physician and you feel it is an emergency, go to the nearest emergency room or call 911 ? Diet ? you may resume your normal diet. ? Activity ? you may resume your normal activities ? Call if you have a fever over 100 degrees. I, KUN HENLEY SR, have received the attached patient education materials/instructions and have verbalized understanding: May we do a follow up call? Yes No I was present when discharge instructions were given Patient Signature Date Clinican/Nurse Signature ___ Date You may receive a survey from Marguerite Parker asking you to rate your care experience. Your feedback is important and will help us understand what we do well and how we can improve the quality of care we provide to you, your loved ones and our community. It?s an honor to serve you. Thank you for choosing [facility] Progress Note-Physicianon Progress Note-Physician Patient: KUN HENLEY SR Age: 62 years Sex: Male : 1960 Associated Diagnoses: None Author: ELEN MACIEL, Greg Haskins ROS & PFSH Reviewed I have reviewed the ROS and PFSH from the procedural information filed today with no changes (or with the following changes).. Health Status Allergies: Allergic Reactions (Selected) Severity Not Documented Acetaminophen-hydrocod one- Unknown. Ambien- Hives. Clindamycin- Hives. Penicillins- Hives. Vicodin- Insomnia. Zolpidem- Unknown., Allergies (6) Active Reaction acetaminophen-hydrocod one Unknown Ambien Hives clindamycin Hives penicillins Hives Vicodin Insomnia zolpidem Unknown Current medications: (Selected) Prescriptions Prescribed Cipro 500 mg Tab: 500 mg = 1 tab(s), Oral, As Directed, Pt to take 1 tab the day before procedure and the 2nd tab the day of procedure once completed., # 2 tab(s), Refills(s) 0, Pharmacy: [facility][id number], 182, cm, 08/10/23 8:48:00 EST, Height/Length Dosing, 127, kg, 11... Rapaflo 4 mg oral capsule: 4 mg = 1 cap(s), Oral, Daily, # 90 cap(s), Refills(s) 3, Pharmacy: [facility] #[id number], 182, cm, 09/23/23 8:28:00 EST, Height/Length Dosing, 127, kg, 08/10/23 8:48:00 EST, Weight Dosing Documented Medications Documented CeleXA 20 mg Tab: mg tab(s), Oral, Daily, Refills(s) 0 amLODIPine 5 mg Tab: 5 mg = 1 tab(s), Oral, Daily, High blood pressure lisinopril 20 mg Tab: 20 mg = 1 tab(s), Oral, Daily, High blood pressure omeprazole 40 mg Cap-EC: Oral, Daily, Control of stomach acid tramadol: 50 mg, Oral, BID, PRN PRN as needed for pain, Refills(s) 0, Home Medications (7) Active amLODIPine 5 mg Tab 5 mg = 1 tab(s), Oral, Daily CeleXA 20 mg Tab , Oral, Daily Cipro 500 mg Tab 500 mg = 1 tab(s), Oral, As Directed lisinopril 20 mg Tab 20 mg = 1 tab(s), Oral, Daily omeprazole 40 mg Cap-EC , Oral, Daily Rapaflo 4 mg oral capsule 4 mg = 1 cap(s), Oral, Daily tramadol 50 mg, PRN, Oral, BID Problem list: All Problems Obesity / ICD-9-CM 278.00 / Possible HTN - Hypertension / SNOMED CT 5767767409 / Confirmed Acid reflux / SNOMED CT 064265326 / Confirmed Insomnia / SNOMED CT 240683073 / Confirmed PTSD - Post-traumatic stress disorder / SNOMED CT 827283432 / Confirmed RSD - Reflex sympathetic dystrophy / SNOMED CT 124029961 / Confirmed Microscopic hematuria / SNOMED CT 032026665 / Confirmed Nocturia / SNOMED CT 159847284 / Confirmed Impotence / SNOMED CT 5585670125 / Confirmed Testicular lump / SNOMED CT 184153974 / Confirmed Weak urine stream / SNOMED CT 284410170 / Confirmed BPH with urinary obstruction / SNOMED CT 4936514992 / Confirmed Smoker / SNOMED CT 103184644 / Confirmed Post-void dribbling / SNOMED CT 589671870 / Confirmed Epididymitis / SNOMED CT 55544948 / Confirmed Epididymal cyst / SNOMED CT 53831771 / Confirmed Asymptomatic microscopic hematuria / SNOMED CT 6387735127 / Confirmed Screening PSA (prostate specific antigen) / SNOMED CT 565155848 / Confirmed, Active Problems (18) Acid reflux Asymptomatic microscopic hematuria BPH with urinary obstruction Epididymal cyst Epididymitis HTN - Hypertension Impotence Insomnia Microscopic hematuria Nocturia Obesity Post-void dribbling PTSD - Post-traumatic stress disorder RSD - Reflex sympathetic dystrophy Screening PSA (prostate specific antigen) Smoker Testicular lump Weak urine stream History of Present Illness The patient has ongoing moderate severity urinary symptoms despite being on Rapaflo 4 mg daily. He has been on this medication for a long time. May have had a previous cystoscopic evaluation by Dr. Queen about 8 to 9 years ago. He has these ongoing symptoms and wishes to no longer take medications. He witnessed the cystoscopic evaluation today by video Objective Additional Findings: Additional Findings: Unexpected findings encountered during today's procedure outside of the original HPI. Measurements from flowsheet : Measurements 09/23/2023 8:26 EST Height/Length Measured 182 cm Height/Length Dosing 182.0 cm Weight Estimated 127 kg Abdomen: Soft, nontender Normal external male genitalia Normal scrotum and testicles. Awake alert oriented cooperative Impression and Plan Assessment and Plan: Diagnosis: BPH with obstruction/lower urinary tract symptoms (HNE18-YX N40.1, Working, Medical), Other obstructive and reflux uropathy (RLG74-IW N13.8, Discharge, Medical). Additional Plan of Care and/or Course of Treatment: Additional Plan of Care and/or Course of Treatment: Options discussed. He witnessed cystoscopic evaluation today. The transrectal ultrasound demonstrates a prostate that is about 38 g in size. This certainly puts him in the good category for any other procedural intervention. We discussed the pros and cons of each and he is decided upon a UroLift procedure. Will schedule Urolift. The procedural risks, benefits, details, and treatment alternatives have been (more content not included)... [facility] Comment on above: Result Comment: Elec tronically Signed By: ELEN MACIEL, Greg Mckeon.br\Date and Time Signed: 09/23/23 08:55 EST URINALYSISOrdered By: Nigel rodriguez on 08-06-2022 Bilirubin Ql (U) Negative (08/06/22 11:25 AM) Normal Negative [facility] UA Auto SS Clarity (U) Clear (08/06/22 11:25 AM) Normal Clear [facility] UA Auto SS Color (U) Yellow (08/06/22 11:25 AM) Normal Yellow [facility] UA Auto SS Epithelial cells.squamous LM.HPF (Urine sed) [#/Area] 0-2 /HPF Normal 0-2/HPF [facility] UA Aut o SS Glucose Test strip (U) [Mass/Vol] Negative (08/06/22 11:25 AM) Normal Negative [facility] UA Auto SS Hemoglobin Ql (U) 1+ *ABN* (08/06/22 11:25 AM) Invalid Interpretation Code Negative [facility] UA Auto SS Ketones (U) [Mass/Vol] Negative (08/06/22 11:25 AM) Normal Negative [facility] UA Auto SS [place].plasma/Lith[place] m.RBC (Bld) [Mass ratio] 0-3 /HPF Normal 0-3/HPF [facility] UA Auto SS Nitrite Ql (U) Negative (08/06/22 11:25 AM) Normal Negative [facility] UA Auto SS pH (U) 5.0 *NA* (08/06/22 11:25 AM) Invalid Interpretation Code 5.0 - 9.0 [facility] UA Auto SS Protein (U) [Mass/Vol] Negative (08/06/22 11:25 AM) Normal Negative [facility] UA Auto SS Specific gravity (U) [Rel density] 1.025 *NA* (08/06/22 11:25 AM) Invalid Interpretation Code 1.005 - 1.030 [facility] UA Auto SS UA Spec Desc Clean Catch (08/06/22 11:25 AM) Normal [facility] UA Auto SS Urobilinogen Qn (U) 0.2590575 {Cherie'U}/dL Normal 0.0 - 1.0 EU/dL [facility] UA Auto SS WBC Auto Ql (U) Negative (08/06/22 11:25 AM) Normal Negative [facility] UA Auto SS WBC LM.HPF (Urine sed) [#/Area] 0-5 /HPF Normal 0-5/HPF [facility] Auto SS PSA, FREE AND TOTAL RATIOon 08-04-2022 % Free PSA 24.8 % Normal [facility] Comment on above: Result Comment: The table below lists the probability of prostate cancer for men with non-suspicious TOSHIA results and total PSA between 4 and 10 ng/mL, by patient age (Randy et al, EMILIE 1998, [id number]). % Free PSA 50-64 yr 65-75 yr 0.00-10.00% 56% 55% 10.01-15.00% 24% 35% 15.01-20.00% 17% 23% 20.01-25.00% 10% 20% >25.00% 5% 9% Please note: Randy et al did not make specific recommendations regarding the use of percent free PSA for any other population of men. Performed By: #### P SAFREE #### [facility] [address] [place] [address] Dr. Ehsan Dallas Prostate specific Ag [Mass/Vol] 2.1 ng/mL Normal 0.0-4.0 [facility] Comment on above: Result Comment: Brooks balbuena ECLIA methodology. . According to the [place] [employer], Serum PSA should decrease and remain at undetectable levels after radical prostatectomy. The AUA defines biochemical recurrence as an initial PSA value 0.2 ng/mL or greater followed by a subsequent confirmatory PSA value 0.2 ng/mL or greater. Values obtained with different assay methods or kits cannot be used interchangeably. Results cannot be interpreted as absolute evidence of the presence or absence of malignant disease. Performed By: #### P SAFREE #### [facility] [address] [place] [address] Dr. Ehsan Dallas PSA, Free 0.52 ng/mL Normal N/A [facility] Comment on above: Result Comment: Brooks balbuena ECLIA methodology. Performed By: #### P SAFREE #### [facility] [address] [place] [address] Dr. Ehsan Dallas CBC AUTO DIFFon 08-03-2022 BASO # 0.0 103/ul Normal 0.0-0.1 [facility] Comment on above: Performed By: #### C BC #### [facility] [address] [place] [address] Dr. Ehsan Dallas Basophils/100 WBC (Bld) 0.5 % Normal 0.2-2.0 [facility] Comment on above: Performed By: #### C BC #### [facility] [address] [place] [address] Dr. Ehsan Dallas EO # 0.2 103/ul Normal 0.0-0.7 [facility] Comment on above: Performed By: #### C BC #### [facility] [address] [place] [address] Dr. Ehsan Dallas Eosinophils/100 WBC (Bld) 2.1 % Normal 0.9-7.0 [facility] Comment on above: Performed By: #### C BC #### [facility] [address] [place] [address] Dr. Ehsan Dallas Erythrocyte distribution width (RBC) [Ratio] 12.4 % Normal 11.0-15.0 [facility] Comment on above: Performed By: #### C BC #### [facility] [address] [place] [address] Dr. Ehsan Dallas Hematocrit (Bld) [Volume fraction] 47.3 % Normal 42.0-54.0 [facility] Comment on above: Performed By: #### C BC #### [facility] [address] [place] [address] Dr. Ehsan Dallas Hemoglobin (Bld) [Mass/Vol] 16.5 g/dL Normal 14.0-18.0 [facility] Comment on above: Performed By: #### C BC #### [facility] [address] [place] [address] Dr. Ehsan Dallas IG # 0.02 10e3/ul Normal 0.00-0.03 [facility] Comment on above: Performed By: #### C BC #### [facility] [address] [place] [address] Dr. Ehsan Dallas IG % 0.3 % Normal 0.0-0.5 [facility] Comment on above: Performed By: #### C BC #### [facility] [address] [address] [address] Ehsan Dallas LYMPH # 2.3 103/ul Normal 1.2-3.8 [facility] Comment on above: Performed By: #### C BC #### [facility] [address] [address] [address] Ehsan Dallas Lymphocytes/100 WBC (Bld) 30.2 % Normal 20.5-60.0 [facility] Comment on above: Performed By: #### C BC #### [facility] [address] [place] [address] Dr. Ehsan Dallas MANUAL DIFF REQ NO Normal [facility] Comment on above: Performed By: #### C BC #### [facility] [address] [place] [address] Dr. Ehsan Dallas MCH (RBC) [Entitic mass] 31.2 pg Normal 25.9-34.0 [facility] Comment on above: Performed By: #### C BC #### [facility] [address] [place] [address] Dr. Ehsan Dallas MCHC (RBC) [Mass/Vol] 34.9 g/dL Normal 29.9-35.2 [facility] Comment on above: Performed By: #### C BC #### [facility] [address] [place] [address] Dr. Ehsan Dallas MCV (RBC) [Entitic vol] 89.4 fL Normal 80.0-94.0 [facility] Comment on above: Performed By: #### C BC #### [facility] [address] [place] [address] Dr. Ehsan Dallas MONO # 0.7 103/ul Normal 0.3-0.8 [facility] Comment on above: Performed By: #### C BC #### [facility] [address] [place] [address] Dr. Ehsan Dallas Monocytes/100 WBC (Bld) 8.6 % Normal 1.7-12.0 [facility] Comment on above: Performed By: #### C BC #### [facility] [address] [address] [address] Ehsan Dallas NEUT # 4.5 103/ul Normal 1.4-6.5 [facility] Comment on above: Performed By: #### C BC #### [facility] [address] [place] [address] Dr. Ehsan Dallas Neutrophils/100 WBC (Bld) 58.3 % Normal 43.0-75.0 [facility] Comment on above: Performed By: #### C BC #### [facility] [address] [place] [address] Dr. Ehsan Dallas Platelet mean volume (Bld) [Entitic vol] 10.0 fL Normal 9.5-13.5 [facility] Comment on above: Performed By: #### C BC #### [facility] [address] [place] [address] Dr. Ehsan Dallas PLT 220 103/ul Normal 150-450 [facility] Comment on above: Performed By: #### C BC #### [facility] [address] [place] [address] Dr. Ehsan Dallas RBC 5.29 106/ul Normal 4.70-6.10 [facility] Comment on above: Performed By: #### C BC #### [facility] [address] [address] [address] Ehsan Dallas WBC 7.7 103/ul Normal 4.0-11.0 [facility] Comment on above: Performed By: #### C BC #### [facility] [address] [place] [address] Dr. Ehsan Dallas FREE T3on 08-03-2022 FREE T3 2.68 pg/mlL Normal 2.18-3.98 [facility] Comment on above: Performed By: #### L IPID, TSH, CMP, T4, FT3 #### [facility] [address] [place] [address] Dr. Ehsan Dallas GLYCOHEMOGLOBIN A1Con 2021 ADA RECOMMENDATION SEE BELOW Normal [facility] Comment on above: Result Comment: ADA RECOMMENDED LIMIT 4.0 - 6.0 ADA THERAPEUTIC TARGET < 7.0 ACTION SUGGESTED > 7.0 Performed By: #### A 1C #### [facility] [address] [address] [address] Ehsan Dallas Glucose [Mass/Vol] 105 mg/dL Normal [facility] Comment on above: Performed By: #### A 1C #### [facility] [address] [address] [address] Ehsan Dallas HbA1c (Bld) [Mass fraction] 5.3 % Normal 4.5-6.2 [facility] Comment on above: Performed By: #### A 1C #### [facility] [address] [address] [address] Ehsan Dallas LIPID PROFILEon 08-03-2022 CHOL-HDL RATIO NORM SEE BELOW Normal [facility] Comment on above: Result Comment: 3.3 - 4.4 LOW RISK 4.4 - 7.1 AVERAGE RISK 7.1 - 11.0 MODERATE RISK >11.0 HIGH RISK Performed By: #### L IPID, TSH, CMP, T4, FT3 #### [facility] [address] [address] [address] Ehsan Dallas Cholesterol [Mass/Vol] 200 mg/dL Normal <=200 [facility] Comment on above: Performed By: #### L IPID, TSH, CMP, T4, FT3 #### [facility] [address] [address] [address] Ehsan Dallas Cholesterol in HDL [Mass/Vol] 41 mg/dL Normal 40-60 [facility] Comment on above: Performed By: #### L IPID, TSH, CMP, T4, FT3 #### [facility] [address] [address] [address] Ehsan Dallas Cholesterol in LDL [Mass/Vol] 142.6 mg/dL Normal [facility] Comment on above: Performed By: #### L IPID, TSH, CMP, T4, FT3 #### [facility] [address] [address] [address] Ehsan Dallas Cholesterol.total/Cho lesterol in HDL [Mass ratio] 4.9 {ratio} Normal [facility] Comment on above: Performed By: #### L IPID, TSH, CMP, T4, FT3 #### [facility] [address] [address] [address] Ehsan Dallas HDL NORMAL > or = 60 mg/dl - LO W CARDIOVASCULAR RISK <40 mg/dl - HIGH CARDIOVASCULAR RISK Normal [facility] Comment on above: Performed By: #### L IPID, TSH, CMP, T4, FT3 #### [facility] [address] [place] [address] Dr. Ehsan Dallas LDL CALC NORMAL SEE BELOW Normal [facility] Comment on above: Result Comment: <100 mg/dl OPTIMAL 100 - 129 mg/dl NEAR OR ABOVE OPTIMAL 130 - 159 mg/dl BORDERLINE HIGH 160 - 189 mg/dl HIGH >190 mg/dl VERY HIGH Performed By: #### L IPID, TSH, CMP, T4, FT3 #### [facility] [address] [place] [address] Dr. Ehsan Dallas Triglyceride [Mass/Vol] 82 mg/dL Normal <=150 [facility] Comment on above: Performed By: #### L IPID, TSH, CMP, T4, FT3 #### [facility] [address] [place] [address] Dr. Ehsan Dallas VLDL CALC 16.4 mg/dL Normal [facility] Comment on above: Performed By: #### L IPID, TSH, CMP, T4, FT3 #### [facility] [address] [place] [address] Dr. Ehsan Dallas PROF 14(COMP METB)on 022 Albumin [Mass/Vol] 3.6 g/dL Normal 3.4-5.0 [facility] Comment on above: Performed By: #### L IPID, TSH, CMP, T4, FT3 #### [facility] [address] [place] [address] Dr. Ehsan Dallas Albumin/Globulin [Mass ratio] 0.9 {ratio} Normal [facility] Comment on above: Performed By: #### L IPID, TSH, CMP, T4, FT3 #### [facility] [address] [place] [address] Dr. Ehsan Dallas ALP [Catalytic activity/Vol] 77 U/L Normal 46-116 [facility] Comment on above: Performed By: #### L IPID, TSH, CMP, T4, FT3 #### [facility] [address] [address] [address] Ehsan Dallas ALT [Catalytic activity/Vol] 24 U/L Normal 16-63 [facility] Comment on above: Performed By: #### L IPID, TSH, CMP, T4, FT3 #### [facility] [address] [address] [address] Ehsan Dallas Anion gap [Moles/Vol] 9.8 mmol/L Normal [facility] Comment on above: Performed By: #### L IPID, TSH, CMP, T4, FT3 #### [facility] [address] [place] [address] Dr. Ehsan Dallas AST [Catalytic activity/Vol] 10 U/L Critically low 15-37 [facility] Comment on above: Performed By: #### L IPID, TSH, CMP, T4, FT3 #### [facility] [address] [place] [address] Dr. Ehsan Dallas Bilirubin [Mass/Vol] 0.6 mg/dL Normal 0.2-1.0 [facility] Comment on above: Performed By: #### L IPID, TSH, CMP, T4, FT3 #### [facility] [address] [place] [address] Dr. Ehsan Dallas Calcium [Mass/Vol] 8.8 mg/dL Normal 8.5-10.1 [facility] Comment on above: Performed By: #### L IPID, TSH, CMP, T4, FT3 #### [facility] [address] [address] [address] Ehsan Dallas Chloride [Moles/Vol] 104 mmol/L Normal 98-107 [facility] Comment on above: Performed By: #### L IPID, TSH, CMP, T4, FT3 #### [facility] [address] [address] [address] Ehsan Dallas CO2 [Moles/Vol] 29.4 mmol/L Normal 21.0-32.0 [facility] Comment on above: Performed By: #### L IPID, TSH, CMP, T4, FT3 #### [facility] [address] [place] [address] Dr. Ehsan aDllas Creatinine [Mass/Vol] 1.13 mg/dL Normal 0.70-1.30 [facility] Comment on above: Performed By: #### L IPID, TSH, CMP, T4, FT3 #### [facility] [address] [place] [address] Dr. Ehsan Dallas EGFR-AF MALAYSIAN >60 Normal >=60 [facility] Comment on above: Performed By: #### L IPID, TSH, CMP, T4, FT3 #### [facility] [address] [place] [address] Dr. Ehsan Dallas EGFR-NON AF MALAYSIAN >60 Normal >=60 [facility] Comment on above: Performed By: #### L IPID, TSH, CMP, T4, FT3 #### [facility] [address] [place] [address] Dr. Ehsan Dallas Globulin (S) [Mass/Vol] 3.8 g/dL Normal [facility] Comment on above: Performed By: #### L IPID, TSH, CMP, T4, FT3 #### [facility] [address] [place] [address] Dr. Ehsan Dallas Glucose [Mass/Vol] 92 mg/dL Normal 74-106 [facility] Comment on above: Performed By: #### L IPID, TSH, CMP, T4, FT3 #### [facility] [address] [place] [address] Dr. Ehsan Dallas Potassium [Moles/Vol] 4.2 mmol/L Normal 3.5-5.1 [facility] Comment on above: Performed By: #### L IPID, TSH, CMP, T4, FT3 #### [facility] [address] [place] [address] Dr. Ehsan Dallas Protein [Mass/Vol] 7.4 g/dL Normal 6.4-8.2 [facility] Comment on above: Performed By: #### L IPID, TSH, CMP, T4, FT3 #### [facility] [address] [address] [address] Ehsan Dallas Sodium [Moles/Vol] 139 mmol/L Normal 136-145 [facility] Comment on above: Performed By: #### L IPID, TSH, CMP, T4, FT3 #### [facility] [address] [address] [address] Ehsan Dallas Urea nitrogen [Mass/Vol] 21.0 mg/dL Critically high 7.0-18.0 [facility] Comment on above: Performed By: #### L IPID, TSH, CMP, T4, FT3 #### [facility] [address] [address] [address] Ehsan Dallas Urea nitrogen/Creatinine [Mass ratio] 18.6 mg/mg Normal [facility] Comment on above: Performed By: #### L IPID, TSH, CMP, T4, FT3 #### [facility] [address] [place] [address] Dr. Ehsan Dallas T4on 08-03-2022 T4 [Mass/Vol] 8.10 ug/dL Normal 4.50-12.10 [facility] Comment on above: Performed By: #### L IPID, TSH, CMP, T4, FT3 #### [facility] [address] [place] [address] Dr. Ehsan Dallas TSHon 08-03-2022 TSH 2.579 uIU/mL Normal 0.358-3.740 [facility] Comment on above: Performed By: #### L IPID, TSH, CMP, T4, FT3 #### [facility] [address] [place] [address] Dr. Ehsan Dallas Rehab Psych Evaluationon Rehab Psych Evaluation MR#: [id number] [facility] ( ) INPATIENT ( x ) OUTPATIENT Patient Name: Kun Henley Date of : 1960 Referring Physician: Dictated By: Amy Erazo, PhD, ABPP Evaluation Date: 04/12/2019 neuropsychological evaluation DATES OF SERVICE: April 12, 2019 to April 17, 2019 DIAGNOSIS: Memory impairment DATE OF ONSET: Unknown DATE OF : 1960 AGE: 58 TIME SPENT: 87138:1 unit; 71850:1 unit; 73648:1 unit; 36199:4 units; 16112:1 unit; 04168:1 unit; 50965:6 units REASON FOR REFERRAL: This is the initial neuropsychological evaluation (outpatient) of Mr. Kun Henley, a 58-year-old, right-handed, White, gentleman. This evaluation was requested by Dr. Elvis Thomas, neurologist, to determine Mr. Henley's present neurocognitive status. Mr. Henley was referred with memory impairment. HISTORY OF PRESENTING PROBLEM: The following information was obtained from a clinical interview with Mr. Henley on the date of this evaluation. He was a fine historian. He was accompanied to this appointment by his , Farhana Henley, who also provided background information. In addition, Dr. Thomas kindly provided me with a clinic note dated March 15, 2019. According to Mr. Henley, he has been concerned about his memory over about the past two years. He believes his memory difficulties have become gradually worse over time. He indicates, however, the main reason he consulted Dr. Thomas was due to episodes of severe head pain when he would turn his head; he would experience a short stabbing pain in the neck that would extend to the top of his head. He notes he would have dizziness and tunnel vision with these episodes as well. He notes these issues have since resolved, but he acknowledges continued cognitive issues. Dr. Thomas refers to an MRI of the brain with and without contrast conducted on February 22, 2019, that was read as minimal white matter signal abnormality (nonspecific) and a carotid ultrasound on February 22, 2019, that was read as 0-49% stenosis in the internal carotid arteries bilaterally. Dr. Thomas also references a [place] Cognitive Assessment score of 25/30 (difficulty recalling the 5 words). Mr. Henley indicates he has difficulty recalling names, dates, and appointments. He reports he relies heavily on his phone to prompt him about upcoming appointments. 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 His describes Mr. Henley's ability to recall remote events as excellent. However, she notes recently he forgot her birthday and their anniversary. She notes these milestones do not seem to matter to him anymore. She also describes an increase in irritability, indicating when he was prescribed Celexa, this helped for a while. However, she notes he has begun becoming grouchy even with their son, which reportedly is quite unusual for him. CURRENT MEDICATIONS: Mr. Henley kindly brought a list of his medications with him to this appointment: Rexulti tabs, Celexa, lisinopril, amlodipine, omeprazole, Celebrex, aspirin, Xanax, hyoscyamine, and Flonase. Mr. Henley indicates he used to take two Xanax at bedtime, though Dr. Thomas encouraged him to taper to discontinuation. He notes he takes one at bedtime at present. He notes he also used to take tramadol, but Dr. Thomas encouraged him to discontinue that medication as well. PAST MEDICAL HISTORY: Dr. Thomas's note indicates: Hypertension, insomnia, memory change, osteoarthritis, posttraumatic stress disorder, reflex sympathetic dystrophy, restless legs syndrome, and syncope. PAST SURGICAL HISTORY: Mr. Henley kindly brought a list of his surgeries: Multiple orthopedic surgeries to bilateral knees; left myringotomy, cholecystectomy, bilateral cataract removal, right rotator cuff repair, heart catheterization, and bilateral repair of detached retina. PSYCHIATRIC HISTORY: Mr. 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 He notes this person wanted to put him on medication, though he declined and returned to his primary care physician for medication management and who prescribed the Xanax. He reports no history of suicidal ideation or attempts. SUBSTANCE USE: Mr. Henley indicates he may consume 1-2 alcohol drinks per day a few times per week. He acknowledges when he was in his 30s or 40s, he drank more heavily (every day and would close down the bar ). He notes no legal issues due to his alcohol use. He reports no illicit drug use and indicates he quit using tobacco about 4 years ago. FAMILY MEDICAL HISTORY: Mr. Henley indicates his mother is 80 years old and has good health. He notes his father in September 2018, at the age of 84 due to cancer. Included in Dr. Thomas's note are family medical issues of stroke, diabetes mellitus, hypertension, and high cholesterol. Mr. Henley is not aware of any memory or mental health issues in family members. SOCIAL HISTORY: Mr. Henley indicates he has been for 12 or 13 years; he indicates Mrs. Mitchell is his third . He notes they reside in [place], [place] with their 15-year-old son (who is actually Mrs. Henley's biological grandson who they adopted a few years ago, though they have provided care to him since he was about 3). EDUCATIONAL HISTORY: Mr. Henley indicates he is a high school graduate. He acknowledges he hated school and his grades were C's and D's. He reports no special education assistance or repeated grades, but acknowledges reading and reading comprehension were always more difficult for him. 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 For purposes of this evaluation, his education was counted as 12 years plus trade school. VOCATIONAL HISTORY: Mr. 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 He notes he currently works for a [employer], which involves much manual labor. He notes some days he may work 4 hours and sometimes up to 12. He acknowledges his memory difficulties have caused him challenges at work, as he must write down everything his supervisor core drilling tells him. CURRENT FUNCTIONING: Behavioral: Mr. Henley indicates his sleep is good. He notes when he initially started to reduce the amount of Xanax he was taking, he had difficulty with sleep, but now he is also taking melatonin and his sleep is improved. He notes he may sleep 7-8 hours per night. He notes his energy through the day is good, but acknowledges he nods off in the evening. His reports he may nap 3-4 hours in the evening. She describes his sleep as calm, but acknowledges he has been snoring a little more with the melatonin. Mr. Henley acknowledges his appetite is high and he believes he has gained weight. His indicates he tends not to eat during the day and then eats during the evening. Mr. Henley does not believe he has had any change to sense of smell, though his indicates there was a time she was cooking something in the crock pot and he was not able to smell it. Mr. 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 His indicates he used to do different things such as good swimming, going in the hot tubs, and going out to dinner with friends. She notes he has not done any of these activities in a long time. She notes he does still attend their son's sports activities. Emotional: Mr. Henley does not believe he feels sad or blue. His indicates he seems neutral with regard to his emotions, unless he is angry or irritable, which she notes happens on a regular basis. Mr. Henley acknowledges he does tend to worry and his main stressors at present are money and the of his father in September. His indicates Mr. Henley was at his father's bedside for two weeks before his father and that Mr. Henley experienced chest pains following his father's . His indicates he expresses concern if he is to be around too many people. No hallucinations are noted. Cognitive: Mr. Henley indicates he has difficulty keeping track of his appointments, and would be missing them if he did not put reminders in his phone. He reports no difficulties with attention, though his indicates he is more distractible than usual. Mr. Henley indicates the thing he has most difficulty with are names and appointments. He notes he is not misplacing his personal possessions, as he is very regimented about where he keeps things. He also notes he is very organized with regard to bill paying and does not have any issues with that. He acknowledges it took him a long time to learn to use his smart phone, though this is the very first smart phone he has had. He acknowledges he has always had difficulty with reading comprehension. He notes when he is driving, he may initially turn the wrong way out of their driveway, but is able to figure out the correct direction independently without asking for assistance. Physical: Mr. Henley acknowledges regular pain in his knees. He notes the head pain has resolved. He acknowledges his knee issues do result in falls at times. He notes his vision is adequately corrected with [id number] readers. He acknowledges hardness of hearing (75% reduction) in his left ear and normal hearing in the right ear. Activities of Daily Living: Mr. Henley indicates he is independent in basic self-care. He notes no incontinence. As noted above, he notes no problems with money/financial sales representative. He indicates he pays all his bills by writing checks. He notes he also balances his checkbook and is usually on target or just a few pennies off. His indicates she has always put his medications in a pillbox for him, though he remembers to take the medications. Mr. Henley indicates he is responsible for the yard work and does an adequate job with these tasks. He indicates he drives without any new difficulties. He reports he does not like to drive in the city and has never driven long distances. He notes this is not a change in his behavior. FINDINGS: Behavior: Mr. Henley is of above average height and above average weight. He was appropriately dressed for the season and situation. Ambulation appeared of normal gait and posture. His level of activity throughout the examination was restless and fidgety. Sensory and motor functions appeared within functional limits. Rapport was easily established; he was pleasant until the least bit challenged by the tasks. He then would want to give up easily. He also cursed frequently, exhibiting easy frustration and significant irritability. Speech was coherent and goal-directed with no formal language errors noted. He was able to express his ideas effectively and understood test directions readily. He was able to establish and maintain a span of attention long enough to complete the tasks asked of him. He recognized when he was having difficulties and react with anger and frustration, stating, I feel stupid. He was overtly cooperative, but embedded validity indicators suggest his engagement with the testing process was low at times and effort was reduced. Therefore, several of his scores may reflect underestimate of his true abilities. Despite this, his scores are essentially within normal limits and so I suspect his daily cognitive difficulties are due to non-neurologic factors such as mood disturbance. Vision: Near-point visual acuity was estimated at 20/20 in both eyes together with [id number] reading glasses. There was no evidence of visual neglect. Intellectual Functioning: Mr. Henley was administered a reading recognition task designed to yield an estimate of premorbid IQ. His score was average. He was then administered the WAIS-IV, earning an overall Full Scale IQ score in the low average range; given that his grades in school per his report were C's and D's and he states, School was not for me, I believe low average scores do not reflect any decline for him. In fact, all his index scores that comprise the overall Full Scale IQ score were at the low average level as well. The index scores were as follows: Verbal Comprehension = 89; Perceptual Reasoning are = 82; Working Memory = 89; Processing Speed = 89. Visual Perception: This domain is consistent with overall IQ. On a task of visuoconstruction in which he had to put red and white blocks together to make them look like a pictured design, his performance was upper end of low average. On a task of visual analysis and synthesis in which he had to recognize and complete abstract patterns, his performance was in the borderline range. His performance was notable for missing easier items and getting harder items correct, a sign of lapses in attention. On a task of visual integration (mentally putting together pieces of a geometric shape), his performance was low average; again, he had a tendency to get easier items incorrect and harder items correct. Overall, these scores combined to yield a Perceptual Reasoning index on the WAIS-IV of 82 (low end of low average). Mr. Henley was also asked to draw a clock to command. His performance was in the low end of low average; while his clock was well organized, attention to detail was lacking. He benefitted significantly from cuing by the examiner, improving to the average range when asked to simply copy a clock the examiner had drawn. Speech and Language: This domain is consistent with overall IQ. On a task of verbal abstract reasoning in which he had to state how two seemingly different objects are like or similar, his performance was in the low end of low average; he had a tendency to respond concretely. On a task of oral vocabulary, his score was in the average range, again, his responses tended to be more concrete. On a task of general fund of information, which requires a person to answer questions about information they will have learned in school, his score was low average; therefore, my opinion that low average scores do not reflect a change for him is reified by his low average performance on this task. Mr. Henley had most difficulty with questions about literature and geography. The scores combine to yield a Verbal Comprehension index on the WAIS-IV of 89 (upper end of low average). Mr. Henley was also administered a task of speech fluency in which he had to say words as quickly as he could, beginning with a specific letter of the alphabet; his score was in the average range. When he simply had to provide words belonging to a single category as quickly as he could, his score fell to the mildly impaired range. The latter task is less complex and so his lower score reflects not a speech and language deficit, but likely lapses in attention. Attention: This domain is variable, though generally consistent with IQ. On a task of immediate auditory attention in which he had to listen to a list of numbers and repeat them back in the same, reverse, or numerical order, his performance was overall in the low average range. He did better on the sequential aspect, which is the most complex, indicating he is able to rise to the challenge of a more complex task; this is suggestive of variability in attention. On a task of sustained auditory attention, but which also assesses his ability to complete mental mass, his performance was in the low average range. Once again, he exhibited the pattern of missing easier items and getting harder items correct. On a task of sustained visual attention (a computer-based continuous performance task), his performance was notable for a tendency toward impulsivity. There is a suggestion his profile is more similar to those with ADHD than without. Memory: On the WMS-IV, memory for stories was low average initially, but fell to the moderately impaired range after a delay. He exhibited an unusual pattern, in that he did not tend to recall primacy and recency elements better. This is an indication he may have been disengaged from the task. He desiree to the low average range with recognition cuing. Memory for a list of words was low average initially, but moderately impaired after a delay; he did not benefit significantly from recognition cuing, scoring in the severely impaired range on that aspect of the task; this is unusual, as a person generally does better with recognition cuing, and so engagement may have been low. He did best on a task of visual memory, scoring in the low average range, both initially and after a delay, and rising to the average range with recognition cuing. Overall, his index scores (which are comprised of story memory and visual memory scores) are rendered invalid due to the disengagement. Nevertheless, to see intact visual memory scores indicates the memory structures of his brain are functioning well; there is no evidence of any type of dementia or even its precursor, mild cognitive impairment. Higher Cognitive Functioning: This domain is an area of personal strength for Mr. Henley. On timed tasks of symbol matching and symbol substitution tasks, his scores ranged from low average to average for an overall Processing Speed index on the WAIS-IV of 89 (upper end of low average). He was also administered a task of visual motor sequencing in which he had to connect the dots as quickly as he could, scoring in the average range. Even when the task demands were increased and he needed to switch back and forth between two sequences, but still go as quickly as he could, his performance remained in the average range. Affective Functioning: Mr. Henley was administered the Personality Assessment Inventory, a self-report questionnaire of current psychological symptomatology. His responses on the validity scales indicate he answered in an open and susan manner. While he does not have marked elevations on the clinical scales, he does acknowledge concerns about physical functioning and health matters as well as a rather negative self-evaluation. He is likely to be self-critical and focus upon past failures or lost opportunities. Others may view him as controlling and distant. He may also have a sense of competitiveness in relationships. He is not one to forgive social slights and may nurture grudges. He believes he has a relatively stress free environment and good support system, and so he may see little need for change in his behavior. However, there are elements of both anxiety disorder and somatoform disorder. The degree of irritability we observed during the testing situation likely reflects anxiety. In addition, when he experiences stress or anxiety, he likely has a tendency to experience it physically or cognitively (somatoform tendencies). TEST DATA TOPF: Pred FSIQ: 99 WAIS-IV (scale scores): SI = 7, VC = 9, IN = 8, BD = 8, MR = 6, SCRAP WORKER = 7, DS = 8, AR = 8, SS = 9, CD = 7 F-A-S: 34 Animal fluency: 13 [place] making test: A = 31 ; B = 79 WMS-IV (all scores are scale scores): LM I = 7, II = 4; VR I = 8, II = 7; IMI = 85, DMI = 73 CVLT-2: Trial 1 = 5, trial 5 = 8, I = 5, D = 2, RCG = 10, F/C = 15/16 Joaquin's CPT: 50% CI CLOX: I = 12, II = 15 RDS: 8 IMPRESSIONS: 1. Mr. Henley was referred with memory impairment. Fortunately, the results of the current evaluation do not suggest any significant deficits in memory. Rather, he does exhibit variability in attention, which may lead to memory difficulties in his daily life. I suspect there may have been a very subtle pre-existing attention deficit disorder (likely with hyperactive component), which has been exacerbated by non-neurologic issues such as mood disturbance and/or poor sleep. 2. He did well/intact in the following areas: Overall intellectual functioning, visual perception, expressive language, simple attention, visual memory, and speed of information processing. 3. Behavioral issues exhibited during testing included a tendency to give up easily on the testing process; he required a fair amount of coaxing to remain on task. He also had a tendency to curs frequently. 4. Emotional issues exhibited during testing included significant irritability with frequent cursing. His responses on a self-questionnaire current psychological symptomatology indicate he is endorsing a significant level of anxiety symptoms and somatoform symptoms (a tendency to experience stress of physical or cognitive symptoms). He meets criteria for anxiety disorder RECOMMENDATIONS 1. No cognitive-enhancing medication appears warranted. 2. Mr. Henley is on a very small dose of citalopram; it may be beneficial to increase this, particularly since he (hopefully) is tapering the alprazolam. 3. I encourage him to continue with the tapering of the alprazolam as directed by Dr. Thomas; this medication may have deleterious effects on cognition. 4. Mr. Henley would benefit from learning new ways of coping with stress and interacting in his interpersonal relationships. I encourage him to consider counseling. My recommendation would be [facility]. Dr. Thomas may write an order if he is in agreement. 5. Mr. Henley reports he is using strategies to circumvent his memory difficulties day-to-day. I encourage him to think his difficulties in terms of attentional lapses rather than memory problems and so if he can use strategies for attention improvement, he will have added benefit. a. Control technology: Turn off notification and alerts from e-mail, apps, and social media when concentration is needed. b. Set boundaries: Using headphones to effect a quiet working environment may be of benefit. c. Narrow your focus: Try focusing on one task at a time rather than considering all that needs to be done during the day. d. Take breaks: Sometimes a break is the most productive thing that a person can do; resting the brain can help to replenish mental energy, improving ability to attend. 6. Mr. Henley reports his sleep is better now that he has added in melatonin. I also encourage him to practice good sleep hygiene. a. Take a warm shower or bath just before bed b. Go to bed at the same time every night. c. If you do not feel sleepy, get out of bed and sit in a chair; no lying in bed just to relax. d. Make room as comfortable as possible (more on the cool side). e. Get up at the same time everyday, even on weekends. f. Turn away from any clock that you can see from bed. g. Try white noise which is a noise to help drown out other stimuli. h. Heavy exercise (cardio) in the morning and plug stitcher exercises (stretching, gentle walking (in the evening). i. no caffeine (soda, coffee, tea, chocolate) after 4 p.m. 7. Mr. Henley declined a feedback session to go through the results of this evaluation. If he has any questions when he receives the report from Dr. Thomas, I encourage him to call. I encourage Dr. Thomas to go through the results at their next appointment. 8. Follow-up neuropsychological evaluation does not appear warranted given the good results. However, if Dr. Thomas deems it necessary, I am happy to see him. At this time, he is discharged from my care. Thank you for allowing me to work with this nice gentleman. If you have any questions, please call [phone]. DICTATED AND REVIEWED BY: Electronically Signed by: Amy Erazo, PhD, ABPP 04/14/2019 11:01 A Amy Erazo, PhD, ABPP Board Certified Clinical Neuropsychologist Date Dict: 04/12/2019/10:59 A/Amy Erazo, PhD, ABPP Date Trans: 04/13/2019 03:55 A/jordyn Addendum: 04/14/2019 08:17 Susan RODRIGUEZ_JN:[id number] cc: Amy Erazo, PhD, ABPP [address] [facility] [address] Elvis Thomas D.O. [address] [facility] [address] Saturnino Hart M.D. [address], [facility] [address] [facility] Vital Signs Date Time Vital Sign Value Performing Clinician Facility 08-17-2024 09:53-0500 Body height 185.4 cm Blair XamarinzhannaMoodyo DO Work Phone: [facility] 08-17-2024 09:53-0500 Body mass index (BMI) [Ratio] 36.15 kg/m2 Blair [employer] DO Work Phone: [facility] 08-17-2024 09:53-0500 Body weight 124.29 kg Blair [employer] DO Work Phone: [facility] 08-15-2024 10:50-0500 Diastolic blood pressure 100 mm[Hg] TENA IZZY [facility] 08-15-2024 10:50-0500 Heart rate 73 /min TENA IZZY [facility] 08-15-2024 10:50-0500 Mean blood pressure 120 mm[Hg] TENA IZZY [facility] 08-15-2024 10:50-0500 Systolic blood pressure 160 mm[Hg] TENA IZZY [facility] 08-15-2024 10:44-0500 Blood Pressure Location TENA IZZY [facility] 08-15-2024 10:44-0500 Body temperature 98.6 [degF] TENA MAGANA [facility] 08-15-2024 10:44-0500 Diastolic blood pressure 99 mm[Hg] TENA MAGANA [facility] 08-15-2024 10:44-0500 Heart rate 80 /min TENA MAGANA [facility] 08-15-2024 10:44-0500 Respiratory rate 18 /min TENA MAGANA [facility] 08-15-2024 10:44-0500 Systolic blood pressure 151 mm[Hg] TENA MAGANA [facility] 07-31-2024 09:08-0500 Body height 185.4 cm Blair Huizarchay DO Work Phone: [facility] 07-31-2024 09:08-0500 Body mass index (BMI) [Ratio] 36.15 kg/m2 Blair Huizarchay DO Work Phone: [facility] 07-31-2024 09:08-0500 Body weight 124.29 kg Blair Ba DO Work Phone: [facility] 07-20-2024 09:04-0400 Body height 185.4 cm Blair Tannerdavid DO Work Phone: [facility] 07-20-2024 09:04-0400 Body mass index (BMI) [Ratio] 36.15 kg/m2 Blair Jfedenchay DO Work Phone: [facility] 07-20-2024 09:04-0400 Body weight 124.29 kg Blair Ba DO Work Phone: [facility] 03-07-2024 09:07-0400 Blood Pressure Location Greg COOK [facility] 03-07-2024 09:07-0400 Body temperature 97.88 [degF] Greg COOK [facility] 03-07-2024 09:07-0400 Diastolic blood pressure 80 mm[Hg] Greg COOK [facility] 03-07-2024 09:07-0400 Heart rate 67 /min Greg COOK [facility] 03-07-2024 09:07-0400 Systolic blood pressure 118 mm[Hg] Greg COOK [facility] 11-29-2023 09:12-0500 Body temperature 98.6 [degF] Greg COOK [facility] 11-29-2023 09:12-0500 Diastolic blood pressure 81 mm[Hg] Greg COOK [facility] 11-29-2023 09:12-0500 Heart rate 75 /min Greg COOK [facility] 11-29-2023 09:12-0500 Respiratory rate 16 /min Greg COOK [facility] 11-29-2023 09:12-0500 Systolic blood pressure 138 mm[Hg] Greg COOK [facility] 08-10-2023 08:46-0500 Blood Pressure Location TENA MAGANA [facility] 08-10-2023 08:46-0500 Diastolic blood pressure 78 mm[Hg] TENA MAGANA [facility] 08-10-2023 08:46-0500 Heart rate 80 /min TENA IZZY [facility] 08-10-2023 08:46-0500 Respiratory rate 16 /min TENA IZZY [facility] 08-10-2023 08:46-0500 Systolic blood pressure 132 mm[Hg] TENA IZZY [facility] 08-06-2022 11:02-0500 Blood Pressure Location TENA IZZY [facility] 08-06-2022 11:02-0500 Diastolic blood pressure 78 mm[Hg] TENA IZZY [facility] 08-06-2022 11:02-0500 Heart rate 64 /min TENA IZZY [facility] 08-06-2022 11:02-0500 Respiratory rate 16 /min TENA IZZY [facility] 08-06-2022 11:02-0500 Systolic blood pressure 124 mm[Hg] TENA IZZY [facility] Encounters Encounter Date Encounter Type Care Provider Facility Start: 08-17-2024 End: 08-17-2024 Bamboo flowsheet Blair Ba DO Work Phone: [facility] Start: 08-17-2024 End: 08-17-2024 Bamboo flowsheet Blair Ba DO Work Phone: [facility] Start: 08-17-2024 End: 08-17-2024 Office outpatient visit 15 minutes Blair Ba DO Work Phone: [facility] Comment on above: Otorrhea of left ear (Primary Dx); Acute suppurative otitis media of left ear without spontaneous rupture of tympanic membrane, recurrence not specified Start: 08-15-2024 End: 08-15-2024 ambulatory TENA CORNELLRY [place] Start: 08-15-2024 End: 08-15-2024 Lab Drop off TENA Letitia CORNELLRY [facility] Start: 08-15-2024 End: 08-15-2024 ambulatory TENA Letitia CORNELLRY Facility:[facility] Start: 08-15-2024 End: 08-15-2024 Patient encounter procedure TENA Letitia IZZY [facility] Start: 07-31-2024 End: 07-31-2024 Bamboo flowsheet Blair Ba DO Work Phone: [facility] Start: 07-31-2024 End: 08-01-2024 Bamboo flowsheet Blair Ba DO Work Phone: [facility] Start: 07-31-2024 End: 08-01-2024 External Result Encounter Blair Ba DO Work Phone: [facility] Department Unsolicited Start: 07-31-2024 End: 07-31-2024 Departed Referred DO Blair Ba Work Phone: [facility] Work Phone: Start: 07-31-2024 End: 07-31-2024 Office outpatient visit 15 minutes Blair Ba DO Work Phone: [facility] Comment on above: Conductive hearing l oss of left ear, unspecified hearing status on contralateral side (Primary Dx); Otorrhea of left ear; Acute suppurative otitis media of left ear without spontaneous rupture of tympanic membrane, recurrence not specified Start: 07-31-2024 End: 07-31-2024 ambulatory BLAIR BA [facility] Work Phone: Start: 07-20-2024 End: 07-20-2024 Bamboo flowsheet Blair Ba DO Work Phone: [facility] Start: 07-20-2024 End: 07-20-2024 Bamboo flowsheet Blair Ba DO Work Phone: [facility] Start: 07-20-2024 End: 07-20-2024 Office outpatient visit 25 minutes Blair Ba DO Work Phone: [facility] Comment on above: Foreign body of left ear, initial encounter (Primary Dx); Otorrhea, unspecified laterality; Acute suppurative otitis media of left ear; Conductive hearing loss of left ear, unspecified hearing status on contralateral side Start: 07-20-2024 End: 07-20-2024 ambulatory BLAIR BA Not Available Start: 06-05-2024 End: 06-05-2024 ambulatory YAYO AGUILA Not Available Start: 05-26-2024 End: 05-26-2024 ambulatory BLAIR BA Not Available Start: 03-07-2024 End: 03-07-2024 ambulatory Greg MYRICK Facility:[facility] [place] Start: 03-07-2024 End: 03-07-2024 Patient encounter procedure Greg MYRICK [facility] [place] Start: 11-29-2023 End: 11-29-2023 ambulatory Greg MYRICK Facility:[facility] Start: 11-29-2023 End: 11-29-2023 Patient encounter procedure Greg MYRICK [facility] [place] Start: 11-26-2023 ambulatory Stuart Roblesisabelle ty:[facility] Start: 11-12-2023 End: 11-12-2023 ambulatory BLAIR BA Not Available Start: 11-05-2023 End: 11-05-2023 ambulatory Greg MYRICK Facility:[facility] Start: 11-05-2023 End: 11-05-2023 Patient encounter procedure Greg MYRICK [facility] Start: 11-01-2023 End: 11-01-2023 ambulatory Greg MYRICK [place] Start: 11-01-2023 End: 11-01-2023 Patient encounter procedure Greg MYRICK [facility] Start: 09-23-2023 End: 09-23-2023 ambulatory Greg MYRICK [facility] Start: 09-23-2023 End: 09-23-2023 Patient encounter procedure Greg MYRICK [facility] Start: 08-10-2023 End: 08-10-2023 Patient encounter procedure TENA MAGANA [facility] Start: 08-08-2022 Encounter for genera l adult medical examination without abnormal findings DR SATURNINO HART [facility] Start: 08-06-2022 End: 08-06-2022 Lab Drop off TENA MAGANA [facility] Start: 08-06-2022 End: 08-06-2022 Patient encounter procedure TENA MAGANA [facility] Start: 08-03-2022 End: 08-04-[address] SATURNINO HART Facility:[facility] Start: 08-03-2022 End: 08-04-2022 Encounter for general adult medical examination without abnormal findings DR SATURNINO HART Facility:[facility] Start: 11-01-2018 Patient encounter procedure JOSUÉ BEASLEY Facility:[id number] Start: 10-31-2018 Patient encounter procedure JOSUÉ BEASLEY Facility:[id number] Start: 10-31-2018 Patient encounter procedure Facility:[id number] Procedures Date Procedure Procedure Detail Performing Clinician Start: 07-31-2024 Mycology Susceptibility DO Blair Ba Work Phone: Start: 07-31-2024 Cul bact xcpt urine blood/stool aerobic isol Blair Ba DO Work Phone: Start: 05-12-2023 End: 05-12-2023 H/O: artificial joint History of artificial joint Blair Ba DO Work Phone: Start: 04-06-2019 Transurethral cystoscopy TENA MAGANA Arthroscopy of knee TENA MAGANA Comment on above: several- Arthroscopy of shoulder KASHMIR MAGANA Comment on above: rotator cuff Bilateral cataracts (disorder) TENA MAGANA Capsulotomy of lens TENA MAGANA Cholecystectomy TENA SWIFT Grommet in external ear canal (finding) TENA MAGANA Replacement of total knee joint TENA MAGANA Comment on above: bilateral Plan of Treatment Date Care Activity Detail Author Start: 06-06-2025 End: 06-06-2025 Patient encounter procedure 06/06/2025 9:00 AM EDT Office Visit [facility] [address] [place] [id number] Yayo Aguila DO [address] [place] [address] [facility] Start: 02-09-2025 End: 02-09-2025 Patient encounter procedure 02/09/2025 1:30 PM EDT Office Visit [facility] [place] [address] [place] [phone] Blair Ba S, DO [address] [place] [address] [facility] Start: 12-01-2024 End: 12-01-2024 Patient encounter procedure 12/01/2024 9:30 AM EST Office Visit [facility] [place] [address] [place] [phone] Blair Ba, DO [address] [place] [address] [facility] Start: 08-17-2024 End: 08-17-2024 Patient encounter procedure [facility] Comment on above: Arrived Start: 07-31-2024 End: 07-31-2025 Ear culture [facility] Work Phone: Comment on above: Expected: 07/31/2024 (Approximate), Expires: 07/31/2025 Start: 07-31-2024 Ear Culture Ear Culture [facility] Start: 07-31-2024 End: 07-31-2025 Fungal culture, percutaneous Fungal culture, percutaneous Microbiology Routine Otorrhea of left ear Expected: 07/31/2024 (Approximate), Expires: 07/31/2025 [facility] Comment on above: Expected: 07/31/2024 (Approximate), Expires: 07/31/2025 Start: 07-31-2024 End: 07-31-2024 Patient encounter procedure [facility] Comment on above: Arrived Start: 07-31-2024 Source specific culture [facility] Start: 07-31-2024 [facility] Start: 07-20-2024 End: 07-20-2024 Patient encounter procedure 07/20/2024 9:00 AM EDT Office Visit [facility] [place] [address] [place] [phone] Blair Ba DO [address] [place] [address] Arrived [facility] Comment on above: Arrived Start: 05-28-2024 Influenza vaccination Influenza Vacc ine (#1) [facility] Start: 1960 Screening for malign ant neoplasm of colon [facility] Fungus identified in Unspecified specimen by Culture [facility] Immunizations Immunization Date Immunization Notes Care Provider [facility] 08-10-2022 influenza virus vaccine, unspecified formulation TENA MAGANA [facility] 08-10-2022 Influenza, Seasonal, Quadrivalent, Adjuvanted Blair Ba DO Work Phone: [facility] 08-26-2021 SARS-CoV-2 (COVID-19 ) mRNA BNT-162b2 vax TENA IZZY [facility] 07-31-2021 influenza virus vaccine, unspecified formulation TENA MAGANA [facility] 07-31-2021 Influenza, injectable, Madin Ray Canine Kidney, preservative free, quadrivalent Blair Ba DO Work Phone: [facility] 01-08-2021 SARS-CoV-2 (COVID-19 ) mRNA BNT-162b2 vax TENA IZZY [facility] 12-18-2020 SARS-CoV-2 (COVID-19 ) mRNA BNT-162b2 vax TENA IZZY [facility] 08-02-2020 influenza virus vaccine, unspecified formulation TENA MAGANA [facility] 08-02-2020 Seasonal trivalent influenza vaccine, adjuvanted, preservative free Blair Ba DO Work Phone: [facility] 08-17-2017 influenza virus vaccine, unspecified formulation Blair Ba DO Work Phone: [facility] 08-17-2017 influenza, unspecified formulation TENA MAGANA [facility] NEGATED: Highlighted row has not occurred!11-29-2023 influenza virus vaccine, unspecified formulation Greg MYRICK [facility] Payers Date Payer Category Payer Self-pay [id number] 2023 Private Health Insurance BARRETT DESAI [id number] 2023 Unknown [id number] 1960 Unknown [id number] 2.840.1.181081.3.579.2 .1960 Unknown [id number] 2.840.1.192237.3.579.2 .1961 Unknown [id number] 2.840.1.929887.3.579.2 .356 1960 Unknown [id number] 2.16.840.1.591299.3.579.2 .593 1960 Unknown [id number] 2.16.840.1.171564.3.579.2 .1259 1961 Unknown [id number] 2.16.840.1.754555.3.579.2 .1259 1961 Unknown [id number] 2.16.840.1.882609.3.579.2 .1259 1961 Unknown [id number] 2.16.840.1.598346.3.579.2 .1259 1961 Unknown [id number] 2.16.840.1.150300.3.579.2 .1259 1961 Unknown [id number] 2.16.840.1.919056.3.579.2 .1259 1961 Unknown [id number] 2.16.840.1.150128.3.579.2 .1259 1961 Unknown [id number] 2.16.840.1.765129.3.579.2 .727 1961 Unknown [id number] 2.16.840.1.290041.3.579.2 .727 1961 Unknown [id number] 2.16.840.1.874816.3.579.2 .727 1961 Unknown [id number] 2.16.840.1.584679.3.579.2 .727 1961 Unknown [id number] 2.16.840.1.465552.3.579.2 .727 1961 Unknown [id number] 2.16.840.1.449257.3.579.2 .727 1961 Unknown [id number] 2.16.840.1.440679.3.579.2 .72 1961 Unknown [id number] 2.16.840.1.786866.3.579.2 .727 1959 Unknown [id number] Unknown [id number] 2.16.840.1.986142.3.579.2 .531 Worker's Compensation Susan Severance s [facility] [id number] Social History Date Type Detail Facility Start: 08-06-2022 End: 07-31-2024 Tobacco smoking status Ex-smoker (finding) [facility] Start: 06-05-2024 End: 08-17-2024 Sex Assigned At Male [facility] Start: 10-17-2018 End: 08-10-2023 Tobacco smoking status Never smoked tobacco (finding) [facility] Tobacco smoking status Never [facility] History of tobacco use Current smoker [facility] History of tobacco use Cigarette Smoker [facility] Start: 06-05-2024 End: 07-31-2024 Tobacco use and exposure Smokeless tobacco non-user [facility] Start: 06-05-2024 End: 08-17-2024 Alcoholic beverage intake Current drinker of alcohol (finding) [facility] Start: 06-05-2024 End: 08-17-2024 History of Social function [facility] Start: 06-04-2023 Alcohol Comment Social use [facility] Start: 1960 Sex assigned at Male [facility] Functional Status Date Assessment Result Facility 08-15-2024 Functional Status N/A [facility] 03-07-2024 Functional Status N/A [facility] 11-29-2023 Functional Status N/A [facility] 11-01-2023 Functional Status N/A [facility] 09-23-2023 Functional Status N/A [facility] 08-10-2023 Functional Status N/A [facility] 08-06-2022 Functional Status N/A [facility] Clinical Notes 08-06-2022 to 08-17-2024 Blair Mercedes Jfoctavio, DO - 08/17/2024 10:00 AM Tracey Ba, DO - 07/31/2024 9:15 AM Tracey Ba, DO - 07/20/2024 9:00 AM EDT Note Date & Type Note Facility 08-17-2024 History of Present illness Narrative Subjective Patient ID: Tucker Henley is a 63 y.o. male who presents for Ear Drainage (10 day flaquito left ear drainage / no growth on Culture) HPI This patient presents for recheck of left otitis media and externa and otorrhea on the left side. Patient states to be doing well. Minor plugging sensation of the left ear. Review of Systems Patient denies any difficulties with otorrhea. Has finished a course of oral antibiotic and antibiotic ear drops. Denies any pain. Does describe minimal plugging sensation of the left ear. The rest of his review of systems is unchanged. Objective ENT Physical Exam General Examination: General overview: Normal, age-appropriate, no evidence of distress Head: Normocephalic, atraumatic Eyes: Pupils are equally round and reactive to light and accommodation, extraocular muscles are intact Ears: External ear architecture within normal limits, ear canals are patent, left ear is examined under binocular microscopy. The tympanostomy tube is in good position and patent. No evidence of drainage. Nose: External nose unremarkable, nares patent, septum intact, no evidence of congestion. Oral cavity: Mucosa moist, no evidence of ulcer, mass, or lesion Throat: Clear Neck/thyroid: Neck supple, full range of motion, no cervical lymphadenopathy, no evidence of thyromegaly Lymph nodes: No cervical lymphadenopathy Skin: Warm and dry, no evidence of suspicious lesions, no rash Heart: No jugular venous distention, point of maximal impulse normal Lungs: Good air movement, no audible wheezing, no shortness of breath Chest: Normal shape and expansion Abdomen: Normal, soft, nontender, nondistended Musculoskeletal: Cervical spine normal, full range of motion Extremities: No clubbing, cyanosis, or edema Peripheral pulses: 2+ radial, 2+ carotid Neurologic: Alert and oriented, cranial nerves 2-12 are grossly intact Psych: Alert and oriented, normal affect, no evidence of distress Assessment/Plan Diagnoses and all orders for this visit: Otorrhea of left ear Comments: Resolved Acute suppurative otitis media of left ear without spontaneous rupture of tympanic membrane, recurrence not specified Comments: Resolved, we will see him back in 4-6 months for recheck. documented in this encounter [facility] 08-15-2024 Evaluation + Plan note Diagnostic Tests PendingPSA Total 08/15/24 [facility] 08-15-2024 Evaluation + Plan note Diagnostic Tests PendingUrine Culture 08/15/24 [facility] 08-15-2024 Hospital Discharge instructions Patient Education 08/15/2024 11:06:17 Erectile Dysfunction Erectile Dysfunction Erectile dysfunction (ED) is the inability to get or keep an erection in order to have sexual intercourse. ED is considered a symptom of an underlying disorder and is not considered a disease. ED may include: Inability to get an erection. Lack of enough hardness of the erection to allow penetration. Loss of erection before sex is finished. What are the causes? This condition may be caused by: Physical causes, such as: ?Artery problems. This may include heart disease, high blood pressure, atherosclerosis, and diabetes. ?Hormonal problems, such as low testosterone. ?Obesity. ?Nerve problems. This may include back or pelvic injuries, multiple sclerosis, Parkinson's disease, spinal cord injury, and stroke. Certain medicines, such as: ?Pain relievers. ?Antidepressants. ?Blood pressure medicines and water pills (diuretics). ?Cancer medicines. ?Antihistamines. ?Muscle relaxants. Lifestyle factors, such as: ?Use of drugs such as marijuana, cocaine, or opioids. ?Excessive use of alcohol. ?Smoking. ?Lack of physical activity or exercise. Psychological causes, such as: ?Anxiety or stress. ?Sadness or depression. ?Exhaustion. ?Fear about sexual performance. ?Guilt. What are the signs or symptoms? Symptoms of this condition include: Inability to get an erection. Lack of enough hardness of the erection to allow penetration. Loss of the erection before sex is finished. Sometimes having normal erections, but with frequent unsatisfactory episodes. Low sexual satisfaction in either partner due to erection problems. A curved penis occurring with erection. The curve may cause pain, or the penis may be too curved to allow for intercourse. Never having nighttime or morning erections. How is this diagnosed? This condition is often diagnosed by: Performing a physical exam to find other diseases or specific problems with the penis. Asking you detailed questions about the problem. Doing tests, such as: ?Blood tests to check for diabetes mellitus or high cholesterol, or to measure hormone levels. ?Other tests to check for underlying health conditions. ?An ultrasound exam to check for scarring. ?A test to check blood flow to the penis. Doing a sleep study at home to measure nighttime erections. How is this treated? This condition may be treated by: Medicines, such as: ?Medicine taken by mouth to help you achieve an erection (oral medicine). ?Hormone replacement therapy to replace low testosterone levels. ?Medicine that is injected into the penis. Your health care provider may instruct you how to give yourself these injections at home. ?Medicine that is delivered with a short applicator tube. The tube is inserted into the opening at the tip of the penis, which is the opening of the urethra. A tiny pellet of medicine is put in the urethra. The pellet dissolves and enhances erectile function. This is also called MUSE (medicated urethral system for erections) therapy. Vacuum pump. This is a pump with a ring on it. The pump and ring are placed on the penis and used to create pressure that helps the penis become erect. Penile implant surgery. In this procedure, you may receive: ?An inflatable implant. This consists of cylinders, a pump, and a reservoir. The cylinders can be inflated with a fluid that helps to create an erection, and they can be deflated after intercourse. ?A semi-rigid implant. This consists of two silicone rubber rods. The rods provide some rigidity. They are also flexible, so the penis can both curve downward in its normal position and become straight for sexual intercourse. Blood vessel surgery to improve blood flow to the penis. During this procedure, a blood vessel from a different part of the body is placed into the penis to allow blood to flow around (bypass) damaged or blocked blood vessels. Lifestyle changes, such as exercising more, losing weight, and quitting smoking. Follow these instructions at home: Medicines Take [id number] and prescription medicines only as told by your health care provider. Do not increase the dosage without first discussing it with your health care provider. If you are using self-injections, do injections as directed by your health care provider. Make sure you avoid any veins that are on the surface of the penis. After giving an injection, apply pressure to the injection site for 5 minutes. Talk to your health care provider about how to prevent headaches while taking ED medicines. These medicines may cause a sudden headache due to the increase in blood flow in your body. General instructions Exercise regularly, as directed by your health care provider. Work with your health care provider to lose weight, if needed. Do not use any products that contain nicotine or tobacco. These products include cigarettes, chewing tobacco, and vaping devices, such as e-cigarettes. If you need help quitting, ask your health care provider. Before using a vacuum pump, read the instructions that come with the pump and discuss any questions with your health care provider. Keep all follow-up visits. This is important. Contact a health care provider if: You feel nauseous. You are vomiting. You get sudden headaches while taking ED medicines. You have any concerns about your sexual health. Get help right away if: You are taking oral or injectable medicines and you have an erection that lasts longer than 4 hours. If your health care provider is unavailable, go to the nearest emergency room for evaluation. An erection that lasts much longer than 4 hours can result in permanent damage to your penis. You have severe pain in your groin or abdomen. You develop redness or severe swelling of your penis. You have redness spreading at your groin or lower abdomen. You are unable to urinate. You experience chest pain or a rapid heartbeat (palpitations) after taking oral medicines. These symptoms may represent a serious problem that is an emergency. Do not wait to see if the symptoms will go away. Get medical help right away. Call your local emergency services (911 in the [place] Do not drive yourself to the hospital. Summary Erectile dysfunction (ED) is the inability to get or keep an erection during sexual intercourse. This condition is diagnosed based on a physical exam, your symptoms, and tests to determine the cause. Treatment varies depending on the cause and may include medicines, hormone therapy, surgery, or a vacuum pump. You may need follow-up visits to make sure that you are using your medicines or devices correctly. Get help right away if you are taking or injecting medicines and you have an erection that lasts longer than 4 hours. This information is not intended to replace advice given to you by your health care provider. Make sure you discuss any questions you have with your health care provider. Document Revised: 12/10/2021 Document Reviewed: 12/10/2021 [employer] Patient Education 2023 [employer]. Follow Up Care 04/12/2024 15:05:37 With:IZZY OWENS, TENA Balbuena, URL Address: [address] [facility] [place] [address] Business (1) When: Unknown Comments:pending results of imaging/testing, will call with next steps [facility] 08-15-2024 Note Patient Education Urology Erectile Dysfunction Erectile dysfunction (ED) is the inability to get or keep an erection in order to have sexual intercourse. ED is considered a symptom of an underlying disorder and is not considered a disease. ED may include: ??? Inability to get an erection. ??? Lack of enough hardness of the erection to allow penetration. ??? Loss of erection before sex is finished. What are the causes? This condition may be caused by: ??? Physical causes, such as: ? Artery problems. This may include heart disease, high blood pressure, atherosclerosis, and diabetes. ? Hormonal problems, such as low testosterone. ? Obesity. ? Nerve problems. This may include back or pelvic injuries, multiple sclerosis, Parkinson's disease, spinal cord injury, and stroke. ??? Certain medicines, such as: ? Pain relievers. ? Antidepressants. ? Blood pressure medicines and water pills (diuretics). ? Cancer medicines. ? Antihistamines. ? Muscle relaxants. ??? Lifestyle factors, such as: ? Use of drugs such as marijuana, cocaine, or opioids. ? Excessive use of alcohol. ? Smoking. ? Lack of physical activity or exercise. ??? Psychological causes, such as: ? Anxiety or stress. ? Sadness or depression. ? Exhaustion. ? Fear about sexual performance. ? Guilt. What are the signs or symptoms? Symptoms of this condition include: ??? Inability to get an erection. ??? Lack of enough hardness of the erection to allow penetration. ??? Loss of the erection before sex is finished. ??? Sometimes having normal erections, but with frequent unsatisfactory episodes. ??? Low sexual satisfaction in either partner due to erection problems. ??? A curved penis occurring with erection. The curve may cause pain, or the penis may be too curved to allow for intercourse. ??? Never having nighttime or morning erections. How is this diagnosed? This condition is often diagnosed by: ??? Performing a physical exam to find other diseases or specific problems with the penis. ??? Asking you detailed questions about the problem. ??? Doing tests, such as: ? Blood tests to check for diabetes mellitus or high cholesterol, or to measure hormone levels. ? Other tests to check for underlying health conditions. ? An ultrasound exam to check for scarring. ? A test to check blood flow to the penis. ??? Doing a sleep study at home to measure nighttime erections. How is this treated? This condition may be treated by: ??? Medicines, such as: ? Medicine taken by mouth to help you achieve an erection (oral medicine). ? Hormone replacement therapy to replace low testosterone levels. ? Medicine that is injected into the penis. Your health care provider may instruct you how to give yourself these injections at home. ? Medicine that is delivered with a short applicator tube. The tube is inserted into the opening at the tip of the penis, which is the opening of the urethra. A tiny pellet of medicine is put in the urethra. The pellet dissolves and enhances erectile function. This is also called MUSE (medicated urethral system for erections) therapy. ??? Vacuum pump. This is a pump with a ring on it. The pump and ring are placed on the penis and used to create pressure that helps the penis become erect. ??? Penile implant surgery. In this procedure, you may receive: ? An inflatable implant. This consists of cylinders, a pump, and a reservoir. The cylinders can be inflated with a fluid that helps to create an erection, and they can be deflated after intercourse. ? A semi-rigid implant. This consists of two silicone rubber rods. The rods provide some rigidity. They are also flexible, so the penis can both curve downward in its normal position and become straight for sexual intercourse. ??? Blood vessel surgery to improve blood flow to the penis. During this procedure, a blood vessel from a different part of the body is placed into the penis to allow blood to flow around (bypass) damaged or blocked blood vessels. ??? Lifestyle changes, such as exercising more, losing weight, and quitting smoking. Follow these instructions at home: Medicines ??? Take zmbo-wgg-kxljemb and prescription medicines only as told by your health care provider. Do not increase the dosage without first discussing it with your health care provider. ??? If you are using self-injections, do injections as directed by your health care provider. Make sure you avoid any veins that are on the surface of the penis. After giving an injection, apply pressure to the injection site for 5 minutes. ??? Talk to your health care provider about how to prevent headaches while taking ED medicines. These medicines may cause a sudden headache due to the increase in blood flow in your body. General instructions ??? Exercise regularly, as directed by your health care provider. Work with your health care provider to lose weight, if needed. ??? Do not u (more content not included)... [facility] 07-31-2024 History of Present illness Narrative Subjective Patient ID: Tucker Henley is a 63 y.o. male who presents for Ear Problem (10 day flaquito ) HPI This patient presents for recheck of left-sided otorrhea, ear discomfort and hearing loss. Patient has been using oral antibiotics and antibiotic ear drops. Describes less otorrhea. Continues to have plugging sensation on the left with decreased hearing. Review of Systems Patient denies any fever. Denies any bleeding from the ear. Has been using antibiotic ear drops and oral antibiotics. The rest of his review of systems is negative. Objective ENT Physical Exam General Examination: General overview: Normal, age-appropriate, no evidence of distress Head: Normocephalic, atraumatic Eyes: Pupils are equally round and reactive to light and accommodation, extraocular muscles are intact Ears: External ear architecture within normal limits, ear canals are patent, right tympanic membrane is intact. Ears are examined under binocular microscopy. On the left, the tympanostomy tube is visualized. There is a moderate amount of drainage around the tube. This is cultured at this time. The ear is cleaned using suction. Inflammatory granulation tissue is noted in the area of the epitympanum. No obvious evidence of retraction pocket or cholesteatoma. Nose: External nose unremarkable, nares patent, septum intact, no evidence of congestion. Oral cavity: Mucosa moist, no evidence of ulcer, mass, or lesion Throat: Clear Neck/thyroid: Neck supple, full range of motion, no cervical lymphadenopathy, no evidence of thyromegaly Lymph nodes: No cervical lymphadenopathy Skin: Warm and dry, no evidence of suspicious lesions, no rash Heart: No jugular venous distention, point of maximal impulse normal Lungs: Good air movement, no audible wheezing, no shortness of breath Chest: Normal shape and expansion Abdomen: Normal, soft, nontender, nondistended Musculoskeletal: Cervical spine normal, full range of motion Extremities: No clubbing, cyanosis, or edema Peripheral pulses: 2+ radial, 2+ carotid Neurologic: Alert and oriented, cranial nerves 2-12 are grossly intact Psych: Alert and oriented, normal affect, no evidence of distress Assessment/Plan Diagnoses and all orders for this visit: Conductive hearing loss of left ear, unspecified hearing status on contralateral side Comments: Will observe for worsening symptoms. Otorrhea of left ear Comments: Patient will continue using antibiotic ear drops. Orders: - Ear culture; Future - Fungal culture, percutaneous; Future Acute suppurative otitis media of left ear without spontaneous rupture of tympanic membrane, recurrence not specified Comments: Patient will finish his course of oral antibiotic. We will await the results of the culture documented in this encounter [facility] 07-20-2024 History of Present illness Narrative Subjective Patient ID: Tucker Henley is a 63 y.o. male who presents for Ear Problem (Ear pain drainage / tried drops) HPI 63-year-old white male presents today for evaluation of left-sided ear discomfort and drainage. Has been using antibiotic drops for approximately 7 days with very limited improvement. Does describe decreased hearing on the left side and drainage. Review of Systems Patient does describe left-sided ear pain and decreased hearing. Denies any fever. Denies any history of trauma to the left ear. Does have a previous history of tympanostomy with tube placement in his left ear. The rest of his review of systems is negative. Objective ENT Physical Exam General Examination: General overview: Normal, age-appropriate, no evidence of distress Head: Normocephalic, atraumatic Eyes: Pupils are equally round and reactive to light and accommodation, extraocular muscles are intact Ears: External ear architecture within normal limits, ear canals are patent, ears are examined under binocular microscopy. On the right, tympanic membrane is intact. On the left, copious amorphous debris is removed using suction. Tympanostomy tube identified. Foreign body material is removed which appears to be small pieces of black plastic. Nose: External nose unremarkable, nares patent, septum intact, no evidence of congestion. Oral cavity: Mucosa moist, no evidence of ulcer, mass, or lesion Throat: Clear Neck/thyroid: Neck supple, full range of motion, no cervical lymphadenopathy, no evidence of thyromegaly Lymph nodes: No cervical lymphadenopathy Skin: Warm and dry, no evidence of suspicious lesions, no rash Heart: No jugular venous distention, point of maximal impulse normal Lungs: Good air movement, no audible wheezing, no shortness of breath Chest: Normal shape and expansion Abdomen: Normal, soft, nontender, nondistended Musculoskeletal: Cervical spine normal, full range of motion Extremities: No clubbing, cyanosis, or edema Peripheral pulses: 2+ radial, 2+ carotid Neurologic: Alert and oriented, cranial nerves 2-12 are grossly intact Psych: Alert and oriented, normal affect, no evidence of distress Assessment/Plan documented in this encounter [facility] 03-07-2024 Evaluation + Plan note Diagnostic Tests PendingPSA Total 03/07/24 [facility] 03-07-2024 Hospital Discharge instructions Patient Education 03/07/2024 09:37:48 Benign Prostatic Hyperplasia Benign Prostatic Hyperplasia Benign prostatic hyperplasia (BPH) is an enlarged prostate gland that is caused by the normal aging process. The prostate may get bigger as a man gets older. The condition is not caused by cancer. The prostate is a walnut-sized gland that is involved in the production of semen. It is located in front of the rectum and below the bladder. The bladder stores urine. The urethra carries stored urine out of the body. An enlarged prostate can press on the urethra. This can make it harder to pass urine. The buildup of urine in the bladder can cause infection. Back pressure and infection may progress to bladder damage and kidney (renal) failure. What are the causes? This condition is part of the normal aging process. However, not all men develop problems from this condition. If the prostate enlarges away from the urethra, urine flow will not be blocked. If it enlarges toward the urethra and compresses it, there will be problems passing urine. What increases the risk? This condition is more likely to develop in men older than 50 years. What are the signs or symptoms? Symptoms of this condition include: Getting up often during the night to urinate. Needing to urinate frequently during the day. Difficulty starting urine flow. Decrease in size and strength of your urine stream. Leaking (dribbling) after urinating. Inability to pass urine. This needs immediate treatment. Inability to completely empty your bladder. Pain when you pass urine. This is more common if there is also an infection. Urinary tract infection (UTI). How is this diagnosed? This condition is diagnosed based on your medical history, a physical exam, and your symptoms. Tests will also be done, such as: A post-void bladder scan. This measures any amount of urine that may remain in your bladder after you finish urinating. A digital rectal exam. In a rectal exam, your health care provider checks your prostate by putting a lubricated, gloved finger into your rectum to feel the back of your prostate gland. This exam detects the size of your gland and any abnormal lumps or growths. An exam of your urine (urinalysis). A prostate specific antigen (PSA) screening. This is a blood test used to screen for prostate cancer. An ultrasound. This test uses sound waves to electronically produce a picture of your prostate gland. Your health care provider may refer you to a specialist in kidney and prostate diseases (urologist). How is this treated? Once symptoms begin, your health care provider will monitor your condition (active surveillance or watchful waiting). Treatment for this condition will depend on the severity of your condition. Treatment may include: Observation and yearly exams. This may be the only treatment needed if your condition and symptoms are mild. Medicines to relieve your symptoms, including: ?Medicines to shrink the prostate. ?Medicines to relax the muscle of the prostate. Surgery in severe cases. Surgery may include: ?Prostatectomy. In this procedure, the prostate tissue is removed completely through an open incision or with a laparoscope or robotics. ?Transurethral resection of the prostate (TURP). In this procedure, a tool is inserted through the opening at the tip of the penis (urethra). It is used to cut away tissue of the inner core of the prostate. The pieces are removed through the same opening of the penis. This removes the blockage. ?Transurethral incision (TUIP). In this procedure, small cuts are made in the prostate. This lessens the prostate's pressure on the urethra. ?Transurethral microwave thermotherapy (TUMT). This procedure uses microwaves to create heat. The heat destroys and removes a small amount of prostate tissue. ?Transurethral needle ablation (TUNA). This procedure uses radio frequencies to destroy and remove a small amount of prostate tissue. ?Interstitial laser coagulation (ILC). This procedure uses a laser to destroy and remove a small amount of prostate tissue. ?Transurethral electrovaporization (TUVP). This procedure uses electrodes to destroy and remove a small amount of prostate tissue. ?Prostatic urethral lift. This procedure inserts an implant to push the lobes of the prostate away from the urethra. Follow these instructions at home: Take [id number]-[id number] and prescription medicines only as told by your health care provider. Monitor your symptoms for any changes. Contact your health care provider with any changes. Avoid drinking large amounts of liquid before going to bed or out in public. Avoid or reduce how much caffeine or alcohol you drink. Give yourself time when you urinate. Keep all follow-up visits. This is important. Contact a health care provider if: You have unexplained back pain. Your symptoms do not get better with treatment. You develop side effects from the medicine you are taking. Your urine becomes very dark or has a bad smell. Your lower abdomen becomes distended and you have trouble passing urine. Get help right away if: You have a fever or chills. You suddenly cannot urinate. You feel light-headed or very dizzy, or you faint. There are large amounts of blood or clots in your urine. Your urinary problems become hard to manage. You develop moderate to severe low back or flank pain. The flank is the side of your body between the ribs and the hip. These symptoms may be an emergency. Get help right away. Call 911. Do not wait to see if the symptoms will go away. Do not drive yourself to the hospital. Summary Benign prostatic hyperplasia (BPH) is an enlarged prostate that is caused by the normal aging process. It is not caused by cancer. An enlarged prostate can press on the urethra. This can make it hard to pass urine. This condition is more likely to develop in men older than 50 years. Get help right away if you suddenly cannot urinate. This information is not intended to replace advice given to you by your health care provider. Make sure you discuss any questions you have with your health care provider. Document Revised: 04/01/2022 Document Reviewed: 04/01/2022 [employer] Patient Education 2022 [employer]. Follow Up Care 11/29/2023 09:50:30 With:TENA MAGANA PA-C, URL Address: [address] [facility] [place] [address] When: Unknown [facility] 11-29-2023 Hospital Discharge instructions Patient Education 11/29/2023 09:46:40 Benign Prostatic Hyperplasia Benign Prostatic Hyperplasia Benign prostatic hyperplasia (BPH) is an enlarged prostate gland that is caused by the normal aging process. The prostate may get bigger as a man gets older. The condition is not caused by cancer. The prostate is a walnut-sized gland that is involved in the production of semen. It is located in front of the rectum and below the bladder. The bladder stores urine. The urethra carries stored urine out of the body. An enlarged prostate can press on the urethra. This can make it harder to pass urine. The buildup of urine in the bladder can cause infection. Back pressure and infection may progress to bladder damage and kidney (renal) failure. What are the causes? This condition is part of the normal aging process. However, not all men develop problems from this condition. If the prostate enlarges away from the urethra, urine flow will not be blocked. If it enlarges toward the urethra and compresses it, there will be problems passing urine. What increases the risk? This condition is more likely to develop in men older than 50 years. What are the signs or symptoms? Symptoms of this condition include: Getting up often during the night to urinate. Needing to urinate frequently during the day. Difficulty starting urine flow. Decrease in size and strength of your urine stream. Leaking (dribbling) after urinating. Inability to pass urine. This needs immediate treatment. Inability to completely empty your bladder. Pain when you pass urine. This is more common if there is also an infection. Urinary tract infection (UTI). How is this diagnosed? This condition is diagnosed based on your medical history, a physical exam, and your symptoms. Tests will also be done, such as: A post-void bladder scan. This measures any amount of urine that may remain in your bladder after you finish urinating. A digital rectal exam. In a rectal exam, your health care provider checks your prostate by putting a lubricated, gloved finger into your rectum to feel the back of your prostate gland. This exam detects the size of your gland and any abnormal lumps or growths. An exam of your urine (urinalysis). A prostate specific antigen (PSA) screening. This is a blood test used to screen for prostate cancer. An ultrasound. This test uses sound waves to electronically produce a picture of your prostate gland. Your health care provider may refer you to a specialist in kidney and prostate diseases (urologist). How is this treated? Once symptoms begin, your health care provider will monitor your condition (active surveillance or watchful waiting). Treatment for this condition will depend on the severity of your condition. Treatment may include: Observation and yearly exams. This may be the only treatment needed if your condition and symptoms are mild. Medicines to relieve your symptoms, including: ?Medicines to shrink the prostate. ?Medicines to relax the muscle of the prostate. Surgery in severe cases. Surgery may include: ?Prostatectomy. In this procedure, the prostate tissue is removed completely through an open incision or with a laparoscope or robotics. ?Transurethral resection of the prostate (TURP). In this procedure, a tool is inserted through the opening at the tip of the penis (urethra). It is used to cut away tissue of the inner core of the prostate. The pieces are removed through the same opening of the penis. This removes the blockage. ?Transurethral incision (TUIP). In this procedure, small cuts are made in the prostate. This lessens the prostate's pressure on the urethra. ?Transurethral microwave thermotherapy (TUMT). This procedure uses microwaves to create heat. The heat destroys and removes a small amount of prostate tissue. ?Transurethral needle ablation (TUNA). This procedure uses radio frequencies to destroy and remove a small amount of prostate tissue. ?Interstitial laser coagulation (ILC). This procedure uses a laser to destroy and remove a small amount of prostate tissue. ?Transurethral electrovaporization (TUVP). This procedure uses electrodes to destroy and remove a small amount of prostate tissue. ?Prostatic urethral lift. This procedure inserts an implant to push the lobes of the prostate away from the urethra. Follow these instructions at home: Take kggn-xdn-ddaskja and prescription medicines only as told by your health care provider. Monitor your symptoms for any changes. Contact your health care provider with any changes. Avoid drinking large amounts of liquid before going to bed or out in public. Avoid or reduce how much caffeine or alcohol you drink. Give yourself time when you urinate. Keep all follow-up visits. This is important. Contact a health care provider if: You have unexplained back pain. Your symptoms do not get better with treatment. You develop side effects from the medicine you are taking. Your urine becomes very dark or has a bad smell. Your lower abdomen becomes distended and you have trouble passing urine. Get help right away if: You have a fever or chills. You suddenly cannot urinate. You feel light-headed or very dizzy, or you faint. There are large amounts of blood or clots in your urine. Your urinary problems become hard to manage. You develop moderate to severe low back or flank pain. The flank is the side of your body between the ribs and the hip. These symptoms may be an emergency. Get help right away. Call 911. Do not wait to see if the symptoms will go away. Do not drive yourself to the hospital. Summary Benign prostatic hyperplasia (BPH) is an enlarged prostate that is caused by the normal aging process. It is not caused by cancer. An enlarged prostate can press on the urethra. This can make it hard to pass urine. This condition is more likely to develop in men older than 50 years. Get help right away if you suddenly cannot urinate. This information is not intended to replace advice given to you by your health care provider. Make sure you discuss any questions you have with your health care provider. Document Revised: 04/01/2022 Document Reviewed: 04/01/2022 [employer] Patient Education 2022 [employer]. Follow Up Care 11/19/2023 14:26:01 With:ELEN MACIEL, Greg Petty, URL Address: [address] [place] [address] [address] [place] [phone] When:Within 3 Month(s) Comments:w/PVR [facility] 11-02-2023 Note [id number] [facility] 11-01-2023 Hospital Discharge instructions Patient Education 11/01/2023 14:44:12 Lue - Urolift Post-Op Instructions (Custom) [facility] [place], [place] Post-Operative Instructions for UroLift After your procedure it is normal to have: Gross Hematuria (blood in the urine) You may even notice blood clots in your urine. A small amount of blood may apppear to be a lot of blood in your urine as it is diluted. Restarting your blood thinner, increased activity and heavy lifting could increase the amount of bleeding. The bleeding may be sporadic (off and on) over the next 2-3 weeks. Ensure you are hydrating to assist in flushing the blood to prevent voiding complications. In the event you are unable to void, please reach out to our office. If the office is closed, you will need to report to the local emergency room. Blood in your semen and stool may be present. The blood in your semen is not harmful to you or your partner. This will resolve with time. Frequency/urgency/burning with urination is very common. This is due to irritation from your procedure. These symptoms do not indicate that your procedure was unsuccessful or that there is an infection. Ensure you are hydrating! You may try AZO over the counter as needed for urinary discomfort. Pain/discomfort are normal as well. There has been a non-narcotic prescription sent to your pharmacy. You may alternate this prescription with over the counter Ibuprofen. Your pain and discomfort should improve within a few days. When do I need to call the office? We ask that you reach out to the office if you experience a temperature of 100.4 F or higher, excessive urinary bleeding, symptoms of infection, inability to urinate or uncontrolled pain. If the office is closed, you may need to present to the local emergency department. Gould catheter If you have a catheter and will remove it at home, you may do so the next day if urine is clear and no longer red/pink in color. If urine is red, wait until clear to remove the catheter. See attached instructions for removal. Postop UroLift Instructions Complete your antibiotic as instructed. Remain on all your urinary medication until follow up. Take your pain madications and AZO as needed. Resume any blood thinners 48 hour post procedure. Continue to hydrate! Minimize your activity for 72-96 hours post procedure. If you are prescribed Oxybutynin for bladder spasms, you may take this medication every 8 hours as needed. This medication may cause dry mouth/eyes and constipation. Taking an over the counter stool softener and drinking plenty of water will help with side effects. Gould Catheter Removal Please call the office to schedule a visit to remove your catheter , perhaps at the end of this week. When to Call Your Healthcare Provider Call the healthcare provider right away if: You have a fever of 100.4 F (38 C) or higher, or as directed by your healthcare provider. You have questions about removing the catheter. The catheter does not come out with gentle pulling. You cannot urinate within 8 hours of removing the catheter. Your belly (abdomen) is painful or bloated You have burning pain with urination that lasts for 24 hours. You see a lot of blood in your urine. Light bleeding for 24 hours is normal. It feels like the bladder is not emptying. Follow Up Care 09/23/2023 08:59:47 With:Greg MYRICK Address: [address] [id number] [facility] (1) When: Unknown Comments:Please set up a visit by the end of the week to have your catheter removed. Some discharge instructions should accompany this. [facility] 11-01-2023 Note [id number] [facility] 09-23-2023 Evaluation + Plan note Extrac carole from: Title:HOPD visit Author:Greg MYRICK MD Date: 09/23/23 Impression and Plan Assessment and Plan: Diagnosis: BPH with obstruction/lower urinary tract symptoms (PBC40-NI N40.1, Working, Medical), Other obstructive and reflux uropathy (COS48-BU N13.8, Discharge, Medical). Additional Plan of Care and/or Course of Treatment: Additional Plan of Care and/or Course of Treatment: Options discussed. He witnessed cystoscopic evaluation today. The transrectal ultrasound demonstrates a prostate that is about 38 g in size. This certainly puts him in the good category for any other procedural intervention. We discussed the pros and cons of each and he is decided upon a UroLift procedure. Will schedule Urolift. The procedural risks, benefits, details, and treatment alternatives have been discussed with the patient. These include bleeding, infection, continued problems urinating, increased frequency with urgency during the healing process, painful urination, need for indwelling catheter after the procedure, and the need for additional procedures in the future, among others. The risk of penile erection problems and urinary leakage is less after this procedure than some others, but could still occur. Full informed consent has been obtained. Will order Local anesthesia. The usual prescriptions are sent. . Future Appointments Appointment Date:11/01/2023 02:15:00 PM Scheduled Provider: Location:[facility] Appointment Type:Urology [facility]2023 Hospital Discharge instructions Patient Education 09/23/2023 08:46:36 EU - Cystoscopy Discharge Instructions (Custom) Cystoscopy Voiding after the procedure: there may be some pain, burning, urgency, frequency and blood tinged urine following the procedure. These symptoms usually resolve within 2-5 days. Drink the amount of fluid it takes to keep the urine pink to yellow or clear in color. Drinking enough water and fluids will help to ease any discomfort after your procedure. If you are having problems that seem out of the ordinary, please call. If unable to contact your physician and you feel it is an emergency, go to the nearest emergency room or call 911 Diet you may resume your normal diet. Activity you may resume your normal activities Call if you have a fever over 100 degrees. Follow Up Care 08/11/2023 13:49:02 With:Greg MYRICK Address: [address] [facility] [address] [place], [place] [id number] Business (1) When: Unknown Comments:As we discussed you are a candidate for any of the procedures that Kirstin Magana spoke with you about. 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2023 Note [id number] NoteCystoscopy ? Voiding after the procedure: there may be some pain, burning, urgency, frequency and blood tingedurine following the procedure. These symptoms usually resolve within 2-5 days. Drink the amount of fluid it takes to keep the urine pink to yellow or clear in color. Drinking enough water and fluids will help to ease any discomfort after your procedure. ? If you are having problems that seem out of the ordinary, please call. ? If unable to contact your physician and you feel it is an emergency, go to the nearest emergency room or call 911 ? Diet ? you may resume your normal diet. ? Activity ? you may resume your normal activities ? Call if you have a fever over 100 degrees.[facility] 08-10-2023 Hospital Discharge instructions Patient Education 08/10/2023 09:10:14 Cystoscopy Cystoscopy Cystoscopy is a procedure that is used to help diagnose and sometimes treat conditions that affect the lower urinary tract. The lower urinary tract includes the bladder and the urethra. The urethra is the tube that drains urine from the bladder. Cystoscopy is done using a thin, tube-shaped instrument with a light and camera at the end (cystoscope). The cystoscope may be hard or flexible, depending on the goal of the procedure. The cystoscope is inserted through the urethra, into the bladder. Cystoscopy may be recommended if you have: Urinary tract infections that keep coming back. Blood in the urine (hematuria). An inability to control when you urinate (urinary incontinence) or an overactive bladder. Unusual cells found in a urine sample. A blockage in the urethra, such as a urinary stone. Painful urination. An abnormality in the bladder found during an intravenous pyelogram (IVP) or CT scan. Cystoscopy may also be done to remove a sample of tissue to be examined under a microscope (biopsy). Tell a health care provider about: Any allergies you have. All medicines you are taking, including vitamins, herbs, eye drops, creams, and gvma-mcp-ftzinjg medicines. Any problems you or family members have had with anesthetic medicines. Any blood disorders you have. Any surgeries you have had. Any medical conditions you have. Whether you are or may be . What are the risks? Generally, this is a safe procedure. However, problems may occur, including: Infection. Bleeding. Allergic reactions to medicines. Damage to other structures or organs. What happens before the procedure? Medicines Ask your health care provider about: Changing or stopping your regular medicines. This is especially important if you are taking diabetes medicines or blood thinners. Taking medicines such as aspirin and ibuprofen. These medicines can thin your blood. Do not take these medicines unless your health care provider tells you to take them. Taking mtli-mxq-eyeuiqo medicines, vitamins, herbs, and supplements. Tests You may have an exam or testing, such as: X-rays of the bladder, urethra, or kidneys. CT scan of the abdomen or pelvis. Urine tests to check for signs of infection. General instructions Follow instructions from your health care provider about eating or drinking restrictions. Ask your health care provider what steps will be taken to help prevent infection. These steps may include: ?Washing skin with a germ-killing soap. ?Taking antibiotic medicine. Plan to have a responsible adult take you home from the hospital or clinic. What happens during the procedure? You will be given one or more of the following: ?A medicine to help you relax (sedative). ?A medicine to numb the area (local anesthetic). The area around the opening of your urethra will be cleaned. The cystoscope will be passed through your urethra into your bladder. Germ-free (sterile) fluid will flow through the cystoscope to fill your bladder. The fluid will stretch your bladder so that your health care provider can clearly examine your bladder patel. Your doctor will look at the urethra and bladder. Your doctor may take a biopsy or remove stones. The cystoscope will be removed, and your bladder will be emptied. The procedure may vary among health care providers and hospitals. What can I expect after the procedure? After the procedure, it is common to have: Some soreness or pain in your abdomen and urethra. Urinary symptoms. These include: ?Mild pain or burning when you urinate. Pain should stop within a few minutes after you urinate. This may last for up to 1 week. ?A small amount of blood in your urine for several days. ?Feeling like you need to urinate but producing only a small amount of urine. Follow these instructions at home: Medicines Take ogsq-zma-pfyjspr and prescription medicines only as told by your health care provider. If you were prescribed an antibiotic medicine, take it as told by your health care provider. Do notstop taking the antibiotic even if you start to feel better. General instructions Return to your normal activities as told by your health care provider. Ask your health care provider what activities are safe for you. If you were given a sedative during the procedure, it can affect you for several hours. Do not drive or operate machinery until your health care provider says that it is safe. Watch for any blood in your urine. If the amount of blood in your urine increases, call your healthcare provider. Follow instructions from your health care provider about eating or drinking restrictions. If a tissue sample was removed for testing (biopsy) during your procedure, it is up to you to get your test results. Ask your health care provider, or the department that is doing the test, when yourresults will be ready. Drink enough fluid to keep your urine pale yellow. Keep all follow-up visits. This is important. Contact a health care provider if: You have pain that gets worse or does not get better with medicine, especially pain when you urinate. You have trouble urinating. You have more blood in your urine. Get help right away if: You have blood clots in your urine. You have abdominal pain. You have a fever or chills. You are unable to urinate. Summary Cystoscopy is a procedure that is used to help diagnose and sometimes treat conditions that affect the lower urinary tract. Cystoscopy is done using a thin, tube-shaped instrument with a light and camera at the end. After the procedure, it is common to have some soreness or pain in your abdomen and urethra. Watch for any blood in your urine. If the amount of blood in your urine increases, call your healthcare provider. If you were prescribed an antibiotic medicine, take it as told by your health care provider. Do notstop taking the antibiotic even if you start to feel better. This information is not intended to replace advice given to you by your health care provider. Make sure you discuss any questions you have with your health care provider. Document Revised: 05/27/2022 Document Reviewed: 04/25/2021 [employer] Patient Education 2022 [employer]. Follow Up Care 08/06/2022 11:25:18 With:ELEN MACIEL, Greg Petty, URL Address: [facility] [employer] [facility] [address] [place] [phone] When: Unknown [facility] [employer] 11-10-2022 Hospital Discharge instructions Patient Education 08/06/2022 11:20:19 Benign Prostatic Hyperplasia Benign Prostatic Hyperplasia Benign prostatic hyperplasia (BPH) is an enlarged prostate gland that is caused by the normal agingprocess and not by cancer. The prostate is a walnut-sized gland that is involved in the production of semen. It is located in front of the rectum and below the bladder. The bladder stores urine and the urethra is the tube that carries the urine out of the body. The prostate may get bigger as a man gets older. An enlarged prostate can press on the urethra. This can make it harder to pass urine. The build-up of urine in the bladder can cause infection. Back pressure and infection may progress to bladder damage and kidney (renal) failure. What are the causes? This condition is part of a normal aging process. However, not all men develop problems from this condition. If the prostate enlarges away from the urethra, urine flow will not be blocked. If it enlarges toward the urethra and compresses it, there will be problems passing urine. What increases the risk? This condition is more likely to develop in men over the age of 50 years. What are the signs or symptoms? Symptoms of this condition include: Getting up often during the night to urinate. Needing to urinate frequently during the day. Difficulty starting urine flow. Decrease in size and strength of your urine stream. Leaking (dribbling) after urinating. Inability to pass urine. This needs immediate treatment. Inability to completely empty your bladder. Pain when you pass urine. This is more common if there is also an infection. Urinary tract infection (UTI). How is this diagnosed? This condition is diagnosed based on your medical history, a physical exam, and your symptoms. Tests will also be done, such as: A post-void bladder scan. This measures any amount of urine that may remain in your bladder after you finish urinating. A digital rectal exam. In a rectal exam, your health care provider checks your prostate by putting a lubricated, gloved finger into your rectum to feel the back of your prostate gland. This exam detects the size of your gland and any abnormal lumps or growths. An exam of your urine (urinalysis). A prostate specific antigen (PSA) screening. This is a blood test used to screen for prostate cancer. An ultrasound. This test uses sound waves to electronically produce a picture of your prostate gland. Your health care provider may refer you to a specialist in kidney and prostate diseases (urologist). How is this treated? Once symptoms begin, your health care provider will monitor your condition (active surveillance or watchful waiting). Treatment for this condition will depend on the severity of your condition. Treatment may include: Observation and yearly exams. This may be the only treatment needed if your condition and symptoms are mild. Medicines to relieve your symptoms, including: ?Medicines to shrink the prostate. ?Medicines to relax the muscle of the prostate. Surgery in severe cases. Surgery may include: ?Prostatectomy. In this procedure, the prostate tissue is removed completely through an open incision or with a laparoscope or robotics. ?Transurethral resection of the prostate (TURP). In this procedure, a tool is inserted through the opening at the tip of the penis (urethra). It is used to cut away tissue of the inner core of the prostate. The pieces are removed through the same opening of the penis. This removes the blockage. ?Transurethral incision (TUIP). In this procedure, small cuts are made in the prostate. This lessens the prostate's pressure on the urethra. ?Transurethral microwave thermotherapy (TUMT). This procedure uses microwaves to create heat. The heat destroys and removes a small amount of prostate tissue. ?Transurethral needle ablation (TUNA). This procedure uses radio frequencies to destroy and remove a small amount of prostate tissue. ?Interstitial laser coagulation (ILC). This procedure uses a laser to destroy and remove a small amount of prostate tissue. ?Transurethral electrovaporization (TUVP). This procedure uses electrodes to destroy and remove a small amount of prostate tissue. ?Prostatic urethral lift. This procedure inserts an implant to push the lobes of the prostate away from the urethra. Follow these instructions at home: Take syfh-kps-cmtntuh and prescription medicines only as told by your health care provider. Monitor your symptoms for any changes. Contact your health care provider with any changes. Avoid drinking large amounts of liquid before going to bed or out in public. Avoid or reduce how much caffeine or alcohol you drink. Give yourself time when you urinate. Keep all follow-up visits as told by your health care provider. This is important. Contact a health care provider if: You have unexplained back pain. Your symptoms do not get better with treatment. You develop side effects from the medicine you are taking. Your urine becomes very dark or has a bad smell. Your lower abdomen becomes distended and you have trouble passing your urine. Get help right away if: You have a fever or chills. You suddenly cannot urinate. You feel lightheaded, or very dizzy, or you faint. There are large amounts of blood or clots in the urine. Your urinary problems become hard to manage. You develop moderate to severe low back or flank pain. The flank is the side of your body between the ribs and the hip. These symptoms may represent a serious problem that is an emergency. Do not wait to see if the symptoms will go away. Get medical help right away. Call your local emergency services (911 in the [place] Do not drive yourself to the hospital. Summary Benign prostatic hyperplasia (BPH) is an enlarged prostate that is caused by the normal aging process and not by cancer. An enlarged prostate can press on the urethra. This can make it hard to pass urine. This condition is part of a normal aging process and is more likely to develop in men over the age of 50 years. Get help right away if you suddenly cannot urinate. This information is not intended to replace advice given to you by your health care provider. Make sure you discuss any questions you have with your health care provider. Document Released: 09/13/2006 Document Revised: 08/08/2019 Document Reviewed: 10/18/2017 [employer] Patient Education 2020 [employer] Follow Up Care 08/04/2022 10:41:58 With:TENA MAGANA PA-C, URL Address: [address] [place] [address] When: Unknown [facility] Evaluation + Plan note Future Appointments Appointment Date:08/10/2023 09:00:00 AM Scheduled Provider:TENA MAGANA PA-C Location:[facility] Appointment Type:URO Office Visit Diagnostic Tests Pending * PSA Free & Total 06/27/23 [facility] Evaluation + Plan note Future Appointments Appointment Date:08/10/2023 09:00:00 AM Scheduled Provider:TENA MAGANA PA-C Location:[facility] Appointment Type:URO Office Visit Diagnostic Tests Pending * [facility]rine [facility] Future Appointments Appointment Date:11/05/2023 10:00:00 AM Scheduled Provider: Location:[facility] Appointment Type:[facility]O [facility] Future Appointments Appointment Date:11/26/2023 09:45:00 AM Scheduled Provider:Stuart RUIZ MD Location:[facility] Appointment Type:URO Office Visit [facility] evaluation + Plan note Future Appointments Appointment Date:03/07/2024 09:00:00 AM Scheduled Provider:Greg MYRICK MD Location:[facility] Appointment Type:URO Office Visit [facility] Evaluation note* Diagnosis Foreign body of left ear, initial encounter- Primary Otorrhea, unspecified laterality Acute suppurative otitis media of left ear Conductive hearing loss of left ear, unspecified hearing status on contralateral side [facility] Diagnosis Conductive hearing loss of left ear, unspecified hearing status on contralateral side- Primary Otorrhea of left ear Acute suppurative otitis media of left ear without spontaneous rupture of tympanic membrane, recurrence not specified documented [facility] this encounter [facility] noteNo assessment information availableSelect [facility] Work Phone: Evaluation note* Diagnosis Otorrhea of left ear- Primary Acute suppurative otitis media of left ear without spontaneous rupture of tympanic membrane, recurrence not specified [facility] Narrative No data available for this section [facility] Hospital Discharge instructions No data available for this section [facility] No data available for this section [facility] Summary Purpose Family History No Family History Records FoundNo Family History Records FoundNo Family History Records FoundNo Family History Records Found No data available for this section No data available for this section No data available for this section No data available for this section No data available for this section No data available for this section No Family History Records Found No data available for this section No data available for this section No Family History Records FoundNo Family History Records FoundNo Family History Records Found Advance Directives Advance Directive Response Recorded Date/ Time Advance Directives No October 17, 2018 3:49am Additional Source Comments (unrecognized sect ion and content) No Status Records FoundNo Status Records FoundNo Status Records FoundNo Status Records FoundNo Status Records FoundNo Status Records FoundNo Status Records FoundNo Status Records Found INFORMATION SOURCE (unrecogn ized section and content) DATE CREATED AUTHOR 11/15/2018 [facility] DATE CREATED AUTHOR AUTHOR'S ORGANIZ ATION 11/15/2018 [facility] DATE CREATED AUTHOR AUTHOR'S ORGANIZ ATION 05/29/2019 [facility] DATE CREATED AUTHOR AUTHOR'S ORGANIZ ATION 08/08/2022 [facility] DATE CREATED AUTHOR AUTHOR'S ORGANIZ ATION 08/01/2024 [facility] EPIC DATE CREATED AUTHOR AUTHOR'S ORGANIZ ATION 08/17/2024 [facility] DATE CREATED AUTHOR AUTHOR'S ORGANIZ ATION 08/18/2024 [facility] DATE CREATED AUTHOR AUTHOR'S ORGANIZ ATION 08/18/2024 [facility] Patient Care team informatio n (unrecognized section and content) 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 Start Date End Date Saturnino Hart MD [address] [place] [address] PCP - General Family Medicine 05/13/23 Blair Ba DO [address] [place] [address] Otolaryngology 05/26/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 Start Date End Date Saturnino Hart MD [address] [place] [address] PCP - General Family Medicine 05/13/23 Blair Ba DO [address] [place] [address] Otolaryngology 05/26/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 Start Date End Date Saturnino Hart MD [address] [place] [phone] PCP - General Family Medicine 05/13/23 Blair Ba DO [address] [facility] [place] [address] Otolaryngology 05/26/24 Team Status: Inactive Member Role Status Dates Blair Ba DO Attending Provider Active S tart: July 31, 2024 End: July 31, 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 Start Date End Date Saturnino Hart MD [address] [place] [address] PCP - General Family Medicine 05/13/23 Blair Ba DO [address] [place] [address] Otolaryngology 05/26/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 Start Date End Date Saturnino Hart MD [address] [place] [address] PCP - General [facility] 05/13/23 Blair Ba DO [address] [place] [address] Otolaryngology 05/26/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 Start Date End Date Saturnino Hart MD [address] [place] [address] PCP - General Family [facility] 05/13/23 Blair Ba DO [address] [place] [address] Otolaryngology 05/26/24 Reason for Visit (unrecogniz ed section and content) Reason Comments Ear Problem Ear pain drainage / tried drops Reason Comments Ear Problem 10 day flaquito Reason Comments Ear Drainage 10 day flaquito left ear drainage / no growth on Culture Goals (unrecognized section and content) Goals may be documented in a n alternate section FOR RECORDS PERTAINING TO PATIENTS WHO ARE OR HAVE BEEN ENROLLED IN A CHEMICAL DEPENDENCY/SUBSTANCEABUSE PROGRAM, SOME INFORMATION MAY BE OMITTED. This clinical summary was aggregated from multiple sources. Caution should be exercised in using it in the provision of clinical care. This summary normalizes information from multiple sources, and as a consequence, information in this document may materially change the coding, format and clinical context of patient data. In addition, data may be omitted in some cases. CLINICAL DECISIONS SHOULD BE BASED ON THE PRIMARY CLINICAL RECORDS. [facility]. provides no warranty or guarantee of the accuracy or completeness of information in this document.
--- NOTE | 2024-08-19 08:58 | US_ITS ---
The [address] [address] Patient Name: KUN HENLEY MRN: [id number] date: 1960 Sex: M Assigned Patient Location: [place] Current Patient Location: Accession/Order Number: [id number] Exam Date: 08/19/2024 08:59 Report Date: 08/19/2024 10:11 At the request of: ELANA VALENZUELA Procedure: US renal bladder EXAMINATION: US renal bladder HISTORY: HEMATURIA R31.9 COMPARISON: No relevant comparison available. TECHNIQUE: Ultrasound examination was performed of the kidneys and urinary bladder. FINDINGS: RIGHT KIDNEY: Benign-appearing cyst 5.4 cm in size projecting from mid body. No evidence of pelvocaliectasis, mass, or calculi. Normal parenchymal echogenicity. Color Doppler demonstrates blood flow within the kidney. Kidney: 9.9 x 6.1 x 5.9 cm LEFT KIDNEY: No evidence of pelvocaliectasis, mass, or calculi. Normal parenchymal echogenicity. Color Doppler demonstrates blood flow within the kidney. Kidney: 9.8 x 5.9 x 5.2 cm BLADDER: No visible wall thickening, mass, or calculi. Post void residual: 0 mL URETERAL JETS: Visualized bilaterally. US/US renal bladder IMPRESSION: 1. No urinary tract calculi or mass to account for patient's symptoms. 2. Benign-appearing right renal cyst. 3. Unremarkable urinary bladder. Electronically authenticated by: ZORAIDA JADE Date: 08/19/2024 10:11
== END 2024-08-19 08:56 | disposition home or self-care (01) ==
LOC: US 08:55
PROVIDERS: PCP Family Medicine; Visit Provider Family Medicine
DX: R31.9 Hematuria, unspecified (principal); N28.1 Cyst of kidney, acquired
CPT/HCPCS: 76770